=== PATIENT | female | born 1955 | race Caucasian/White ===

== ENCOUNTER 2016-10-16 11:32 | Inpatient (IN) | payer OTHER ==
[2016-10-16] MEDS ORDERED: Sodium Chloride 0.9% 1000 ML 1,000 ML IV STA (11:58)
[2016-10-16] MEDS ORDERED: Zofran 4 MG/2 ML VIAL IV ONE (11:58)
[2016-10-16] MEDS ORDERED: Hydromorphone 1 mg/ml Ampule IV ONE ×2 (12:00→14:01)
[2016-10-16] MEDS ORDERED: Hydromorphone 1 mg/ml Ampule ONE ×2 (12:04→14:05)
[2016-10-16] MEDS ORDERED: Zofran 4 MG/2 ML VIAL ONE (12:04)
[2016-10-16] MEDS ORDERED: Sodium Chloride 0.9% 1000 ML 1,000 ML ONE ×2 (12:04→13:55)
--- NOTE | 2016-10-16 12:07 | ERPHSYRPT ---
- History of Present Illness Time Seen by Provider: 10/16/16 11:50 Historian: patient Exam Limitations: clinical condition Patient Subjective Stated Complaint: rt flank pain Triage Nursing Assessment: rt flank pain for 2 days. nonradiating. denies pain with urination. no fever. normal bowel pattern. vomited x2 this am. bs present. constant dull ache to rt flank Physician History: PATIENT COMPLAINS OF ACUTE ONSET OF SEVERE RIGHT FLANK X 4 DAYS ASSOCIATED WITH NAUSEA AND EMESIS X 2 EPISODES TODAY. DENIES FEVER, URINARY SYMPTOMS, FREQUENCY , URGENCY, DYSURIA OR HEMATURIA Timing/Duration: day(s) Activities at Onset: none Quality: sharpness Abdominal Pain Onset Location: flank Pain Radiation: no radiation Severity of Pain-Max: severe Severity of Pain-Current: severe Modifying Factors: Improves With: movement Associated Symptoms: nausea, vomiting Previous symptoms: no prior history Allergies/Adverse Reactions: No Known Drug Allergies Allergy (Unverified 10/16/16 11:44) Home Medications: Cranberry Conc/Ascorbic Acid [Cranberry Urinary Comf [facility]] 1 tablet PO DAILY [History] Escitalopram Oxalate [Lexapro] 1 tablet PO DAILY 07/06/14 [History] Simvastatin 40 mg [Zocor 40 mg] 1 tablet PO DAILY 07/06/14 [History] Biotin 10,000 mcg PO DAILY 10/16/16 [History] Hx Tetanus, Diphtheria Vaccination/Date Given: Yes Hx Influenza Vaccination/Date Given: No Hx Pneumococcal Vaccination/Date Given: No Immunizations Up to Date: Yes - Review of Systems Constitutional: No Fever, No Chills Eyes: No Symptoms Ears, Nose, & Throat: No Symptoms Respiratory: No Symptoms, No Cough, No Dyspnea Cardiac: No Symptoms, No Chest Pain, No Edema, No Syncope Abdominal/Gastrointestinal: Nausea, Vomiting, Hematochezia, No Abdominal Pain, No Diarrhea Genitourinary Symptoms: Flank Pain, No Dysuria Musculoskeletal: No Back Pain, No Neck Pain Skin: No Symptoms, No Rash Neurological: No Dizziness, No Focal Weakness, No Sensory Changes Psychological: No Symptoms Endocrine: No Symptoms All Other Systems: Reviewed and Negative - Past Medical History Neurological History: No Pertinent History ENT History: No Pertinent History Cardiac History: No Pertinent History Respiratory History: No Pertinent History Endocrine Medical History: No Pertinent History Musculoskeletal History: No Pertinent History GI Medical History: No Pertinent History History: Other Psycho-Social History: Depression, Eating Disorders Female Reproductive Disorders: No Pertinent History Other Medical History: bladder infections - Past Surgical History Past Surgical History: Yes Neuro Surgical History: No Pertinent History Cardiac: No Pertinent History Respiratory: No Pertinent History Gastrointestinal: Appendectomy Genitourinary: No Pertinent History Musculoskeletal: No Pertinent History Female Surgical History: No Pertinent History Other Surgical History: right breast biopsy - Social History Smoking Status: Current every day smoker How long have you smoked: 40 Exposure to second hand smoke: No Drug Use: none Patient Lives Alone: No - Nursing Vital Signs Nursing Vital Signs: Initial Vital Signs Temperature 97.8 F Temperature Source Oral Pulse Rate 65 Respiratory Rate 18 Blood Pressure [Right Arm] 108/65 Pain Intensity 3 - Physical Exam General Appearance: no apparent distress, alert Eye Exam: PERRL/EOMI, eyes nml inspection Ears, Nose, Throat Exam: normal ENT inspection, pharynx normal, moist mucous membranes Neck Exam: normal inspection, non-tender, supple, full range of motion Respiratory Exam: normal breath sounds, lungs clear, No respiratory distress Cardiovascular Exam: regular rate/rhythm, normal heart sounds Gastrointestinal/Abdomen Exam: soft, normal bowel sounds, tenderness (RIGHT LATERAL TENDERNESS), No mass Back Exam: normal inspection, normal range of motion, CVA tenderness (MARKED RIGHT CVA TENDERNESS), No vertebral tenderness Extremity Exam: normal inspection, normal range of motion, pelvis stable Neurologic Exam: alert, oriented x 3, cooperative, normal mood/affect, nml cerebellar function, sensation nml, No motor deficits Skin Exam: normal color, warm, dry SpO2 Interpretation: normal SpO2: 98 Oxygen Delivery: Room Air - CT Exams Abdomen/Pelvis CT Interpretation: Discussed w/radiologist (NONOBSTRUCTING SCOTT-CALCULI IN EACH KIDNEY), Other (THERE IS A 1.7CM RIGHT OVARY CYST) Ordered Tests: Active Orders 24 hr Category Date Time Status Clean Catch Urine Specimen STAT Care 10/16/16 11:58 Active IV Insertion STAT Care 10/16/16 11:58 Active ABDOMEN AND PELVIS W/0 CONTRAS [CT] Stat Exams 10/16/16 11:59 Completed BLOOD CULTURE Stat Lab 10/16/16 12:45 Received BMP Stat Lab 10/16/16 12:00 Completed CBC W DIFF Stat Lab 10/16/16 12:00 Completed CULTURE,URINE Stat Lab 10/16/16 12:00 Received UA W/ MICROSCOPIC Stat Lab 10/16/16 12:00 Completed Medication Summary Generic Name Dose Route Start Last Admin Trade Name Eduar PRN Reason Stop Dose Admin Piperacillin Sod/Tazobactam 100 mls @ 100 mls/hr 10/16/16 12:26 10/16/16 12: 31 Sod 4.5 gm/ Dextrose IV 10/16/16 13:25 100 mls/hr STAT ONE Administration Discontinued Medications Generic Name Dose Route Start Last Admin Trade Name Eduar PRN Reason Stop Dose Admin Hydromorphone HCl 1 mg 10/16/16 12:00 10/16/16 12:04 Hydromorphone 1 Mg/Ml Ampule IV 10/16/16 12:01 1 mg STAT ONE Administration Hydromorphone HCl Confirm 10/16/16 12:04 Hydromorphone 1 Mg/Ml Ampule Administered 10/16/16 12:05 Dose 1 mg .ROUTE .STK-MED ONE Sodium Chloride 1,000 mls @ 999 mls/hr 10/16/16 11:58 10/16/16 12:05 Sodium Chloride 0.9% 1000 Ml IV 10/16/16 12:58 999 mls/hr .Q1H1M STA Administration Sodium Chloride Confirm 10/16/16 12:04 Sodium Chloride 0.9% 1000 Ml Administered 10/16/16 12:05 Dose 1,000 mls @ ud .ROUTE .STK-MED ONE Dextrose Confirm 10/16/16 12:30 D5w 100ml Mini Bag 100 Ml Administered 10/16/16 12:31 Dose 100 mls @ ud IV .STK-MED ONE Ondansetron HCl 4 mg 10/16/16 11:58 10/16/16 12:04 Zofran 4 Mg/2 Ml Vial IV 10/16/16 11:59 4 mg STAT ONE Administration Ondansetron HCl Confirm 10/16/16 12:04 Zofran 4 Mg/2 Ml Vial Administered 10/16/16 12:05 Dose 4 mg .ROUTE .STK-MED ONE Piperacillin Sod/Tazobactam Sod Confirm 10/16/16 12:30 Zosyn Inj Administered 10/16/16 12:31 Dose 4.5 gm IV .STK-MED ONE Lab/Rad Data: Laboratory Result Diagrams 10/16/16 12:00 03/01/17 12:00 Laboratory Results 10/16/16 10/16/16 10/16/16 Range/Units 12:00 12:00 12:00 WBC 5.6 (4.0-10.5) K/mm3 RBC 3.68 L (4.1-5.4) M/mm3 Hgb 11.9 L (12.0-16.0) gm/dl Hct 36.4 (35-47) % MCV 98.9 (78-100) fl MCH 32.3 H (26-32) pg MCHC 32.7 (32-36) g/dl RDW 13.6 (11.5-14.0) % Plt Count 183 (150-450) K/mm3 MPV 11.0 H (6-9.5) fl Gran % 68.6 H (36.0-66.0) % Lymphocytes % 25.1 (24.0-44.0) % Monocytes % 5.7 (0.0-12.0) % Eosinophils % 0.4 (0.00-5.0) % Basophils % 0.2 (0.0-0.4) % Basophils # 0.01 (0-0.4) Sodium 142 (136-145) mEq/L Potassium 3.6 (3.5-5.1) mEq/L Chloride 108 H (98-107) mEq/L Carbon Dioxide 20.8 L (21-32) mEq/L Anion Gap 16.8 H (5-15) MEQ/L BUN 16 (9-20) mg/dL Creatinine 0.90 (0.55-1.30) mg/dl Estimated GFR > 60 ML/MIN Glucose 106 (70-110) MG/DL Calcium 9.2 (8.5-10.1) mg/dL Ur Collection Type VOID Urine Color YELLOW (YELLOW) Urine Appearance SLIGHTLY CLOUDY (CLEAR) Urine pH 5.5 (5-6) Ur Specific [place] >=1.030 (1.005-1.025) Urine Protein 30 (Negative) Urine Glucose (UA) NEGATIVE (NEGATIVE) mg/dL Urine Ketones NEGATIVE (NEGATIVE) Urine Nitrite NEGATIVE (NEGATIVE) Urine Bilirubin NEGATIVE (NEGATIVE) Urine Urobilinogen 0.2 (0-1) mg/dL Urine WBC (Auto) MODERATE (NEGATIVE) Urine RBC (Auto) TRACE HEMOLYZED (0-5) Denis/ul Urine Microscopic RBC 0-2 (0-2) /HPF Urine Microscopic WBC >100 (0-5) /HPF Ur Epithelial Cells MANY (FEW) /HPF Urine Bacteria MODERATE (NEGATIVE) /HPF Specimen Received 10/16/16 1210 - Progress Progress: improved Progress Note: 10/16/16 12:08 PATIENT GIVEN BOLUS IV NORMAL SALINE 1 LITER OVER 1 HOUR, ZOFRAN 4MG, DILAUDID 1MG IV Discussed with Dr.: Reeder (DISCUSSED WITH DR REEDER AT 1305 FOR OBSERVATION) - Departure Time of Disposition: 13:20 Departure Disposition: Observation Clinical Impression: RIGHT PYELONEPHRITIS, INTRACTABLE PAIN, NONOBSTRUCTIVE MICRO RENAL CALCULI Condition: Stable Critical Care Time: No
[2016-10-16 12:14] LABS: BASOPHIL % 0.2 % (0.0-0.4); Eosinophil % 0.4 % (0.00-5.0); Granulocytes % 68.6 % (36.0-66.0); Lymphocytes % 25.1 % (24.0-44.0); Mean Cell Volume 98.9 fl (78-100); Mean Corpuscular Hemoglobin 32.3 pg (26-32); Monocytes % 5.7 % (0.0-12.0); Platelet Count 183 K/mm3 (150-450); Red Blood Count 3.68 M/mm3 (4.1-5.4); Red Cell Distribution Width 13.6 % (11.5-14.0); White Blood Count 5.6 K/mm3 (4.0-10.5)
[2016-10-16 12:22] LABS: Bacteria MODERATE /HPF (NEGATIVE); COMPLETE URINE MICROSCOPIC? YES; Collection Type VOID; Epithelial Cells MANY /HPF (FEW); Ph 5.5 (5-6); WBC >100 /HPF (0-5)
[2016-10-16] MEDS ORDERED: Zosyn INJ 4.5 GM in D5w 100ML Mini Bag 100 ML 100 ML IV ONE (12:26)
[2016-10-16] MEDS ORDERED: Zosyn INJ IV ONE (12:30)
[2016-10-16] MEDS ORDERED: D5w 100ML Mini Bag 100 ML 100 ML IV ONE (12:30)
[2016-10-16 12:33] LABS: ANION GAP 16.8 MEQ/L (5-15); BLOOD UREA NITROGEN 16 mg/dL (9-20); CHLORIDE 108 mEq/L (98-107); Carbon Dioxide 20.8 mEq/L (21-32); Glucose 106 MG/DL (70-110); Potassium 3.6 mEq/L (3.5-5.1); SODIUM 142 mEq/L (136-145)
--- NOTE | 2016-10-16 12:45 | XRAY ---
Indication: Right flank pain. Multiple contiguous axial images obtained through the abdomen and pelvis without contrast using renal stone protocol. Comparison: None Lung bases demonstrates mild pulmonary emphysema and minimal bibasilar dependent atelectasis. Heart is not enlarged. A few tiny nonobstructing calculi in each kidney, largest in the left lower renal calyx measuring 3 mm. No hydronephrosis, hydroureter, or perinephric fluid. Noncontrasted stomach and bowel loops appear nonobstructed. Mild fluid distended colon throughout especially sigmoid/rectum favoring diarrhea. Previous reported appendectomy. 1.7 cm right ovary cyst. No free fluid/air. Remaining liver, gallbladder, pancreas, spleen, adrenal glands, kidneys, ureters, bladder, and uterus appear unremarkable for noncontrast exam. Mild aortoiliac calcifications without AAA. Osseous structures intact. Impression: 1. Nonobstructing micro-calculi in each kidney. 2. 1.7 cm right ovary cyst. 3. Fluid distended colon throughout favoring diarrhea. CT DI 14.09
[2016-10-16] MEDS: Sodium Chloride 0.9% 1000 ML 1,000 ML IV SCH ×2 (13:50→23:27)
[2016-10-16] MEDS ORDERED: TYLENOL 325 MG PO STA (14:01)
[2016-10-16] MEDS ORDERED: TYLENOL 325 MG ONE (14:05)
--- NOTE | 2016-10-16 16:52 | PCM.HP ---
History of Present Illness - Chief Complaint Chief Complaint: pylonephritis History of Present Illness: is a 60 year old female who presented to the ER today with a history of increasingly severe right flank pain for the last 2 days. She has had no known fever, has no dysuria, frequency or hesitancy. She reports a longstanding history of UTI symptoms and has seen urology in the past. She denies change in bowel patterns, has vomited x 2 this am which she attributed to severe flank pain. - Review of Systems Constitutional: No Fever, No Chills Respiratory: No Cough, No Short Of Breath Cardiac: No Chest Pain, No Edema, No Syncope Abdominal/Gastrointestinal: Nausea, Vomiting, No Abdominal Pain, No Diarrhea, No Constipation, No Hematemesis, No Hematochezia, No Melena Genitourinary Symptoms: Flank Pain, No Dysuria, No Frequency, No Hematuria, No Incontinence Skin: No Rash All Other Systems: Reviewed and Negative Medications & Allergies Home Medications: Home Medication List Cranberry Conc/Ascorbic Acid [Cranberry Urinary Comf [facility]] 1 tablet PO DAILY [History Confirmed 10/16/16] Escitalopram Oxalate [Lexapro] 1 tablet PO DAILY 07/06/14 [History Confirmed 09/03] Simvastatin 40 mg [Zocor 40 mg] 1 tablet PO DAILY 07/06/14 [History Confirmed ] Biotin 10,000 mcg PO DAILY 10/16/16 [History Confirmed 10/16/16] Allergies/Adverse Reactions: Allergies Allergy/AdvReac Type Severity Reaction Status Date / Time sulfamethoxazole AdvReac Severe Nausea and Verified 10/16/16 14:58 [From Bactrim] Vomiting trimethoprim [From Bactrim] AdvReac Severe Nausea and Verified 10/16/16 14:58 Vomiting - Past Medical History Neurological History: No Pertinent History ENT History: No Pertinent History Cardiac History: No Pertinent History Respiratory History: No Pertinent History Endocrine Medical History: No Pertinent History Musculoskelatal History: No Pertinent History GI Medical History: No Pertinent History History: Other Pyscho-Social History: Depression, Eating Disorders Reproductive Disorders: No Pertinent History Comment: bladder infections - Female History Hx Last Menstrual Period: 10 years ago Are you now?: No - Past Surgical History Past Surgical History: Yes Neuro Surgical History: No Pertinent History Cardiac History: No Pertinent History Respiratory Surgery: No Pertinent History GI Surgical History: Appendectomy Genitourinary Surgical Hx: No Pertinent History Musculskeletal Surgical Hx: No Pertinent History Female Surgical History: No Pertinent History Other Surgical History: right breast biopsy - Social History Smoking Status: Current every day smoker How long have you smoked: 42 Exposure to second hand smoke: No Alcohol: None Drug Use: none - Physical Exam Vital Signs: Vital Signs - 24 hr Temp Pulse Resp BP Pulse Ox 10/16/16 15:14 95 10/16/16 14:43 62 18 99/58 10/16/16 14:17 97.9 F 62 16 87/64 10/16/16 13:13 98 10/16/16 12:25 65 18 108/65 96 10/16/16 11:40 97.8 F 130 H 18 130/89 98 General Appearance: no apparent distress, alert Respiratory Exam: normal breath sounds, lungs clear, No respiratory distress Cardiovascular Exam: regular rate/rhythm, normal heart sounds, normal peripheral pulses Gastrointestinal/Abdomen Exam: soft, normal bowel sounds, No tenderness, No mass Back Exam: CVA tenderness (right) Extremity Exam: normal inspection, normal range of motion, pelvis stable Skin Exam: normal color, warm, dry, No rash Assessment/Plan (1) Acute pyelonephritis Current Visit: Yes Status: Acute Assessment & Plan: continue zosyn, await urine and blood culture. IV dilaudid, zofran and fluids ordered. Code(s): N10 - ACUTE PYELONEPHRITIS
[2016-10-16] MEDS ORDERED: MEDICATION INTERVENTION MC SCH (17:00)
[2016-10-16] MEDS: Zosyn 3.375GM/100 Ml D5W 100 ML IV SCH (17:11)
[2016-10-16] MEDS: ZOCOR 20MG PO SCH (22:03)
[2016-10-16] MEDS: Lexapro 10 MG PO SCH (22:03)
[2016-10-16] MEDS: DILAUDID 2 MG INJECTION IV PRN (23:00)
[2016-10-17] MEDS: Zosyn 3.375GM/100 Ml D5W 100 ML IV SCH ×4 (00:45→17:01)
[2016-10-17] MEDS: DILAUDID 2 MG INJECTION IV PRN ×2 (07:44→11:50)
[2016-10-17] MEDS: Sodium Chloride 0.9% 1000 ML 1,000 ML IV SCH ×2 (07:45→20:19)
[2016-10-17] MEDS: Levofloxacin 500MG/100ML D5W 100 ML IV SCH (08:40)
--- NOTE | 2016-10-17 08:51 | HP ---
CHIEF COMPLAINT: Right flank pain. HISTORY OF PRESENT ILLNESS: The patient is a 60 year-old white female who has been complaining of excruciating right sided flank pain for the past two days. The patient reports that she had gotten up after having a bad night to get a drink and actually passed out striking the back of her head and causing pain to her right ankle. The patient denied any dysuria. She has had chronic diarrhea. She has had no fever, chills or sweats. No vomiting. PAST MEDICAL/SURGICAL HISTORY: Significant for hyperlipidemia and depression. The patient denies any significant history of kidney stones or recurrent urinary tract infections/ MEDICATIONS: The patient's medications at home include Lexapro 1 tablet a day, Simvastatin 40 mg a day. She takes biotin. ALLERGIES: SULFA. PHYSICAL EXAMINATION: Revealed a well nourished, well developed 60 year-old white female who appears to be in moderate distress due to her flank pain. The patient's vital signs on admission showed temperature 97.8F oral with a pulse 65, respiratory rate 18, blood pressure 108/65. O2 saturation 98% on room air. HEENT: Normocephalic, atraumatic. Pupils equal round reactive to light. Extraocular movements intact. Oropharynx is dry. NECK: Supple without lymphadenopathy, thyromegaly or JVD. CHEST: Clear to auscultation with good air movement bilaterally. HEART: Regular rate and rhythm without murmurs, rubs or gallops. ABDOMEN: Soft. No palpable masses were felt. There is exquisite tenderness in the right flank area particularly on percussion. EXTREMITIES: Without clubbing, cyanosis or edema. NEUROLOGIC: The patient is alert and oriented x3 with no focal deficits noted. LAB DATA AND TESTS: Showed hemoglobin A1C 5.5, white blood cell count 5,600, hemoglobin 11.9, PLT count 183,000. UA showed specific gravity greater than 1.030. She had greater than 100 white blood cells per high power field, 0 to 2 red blood cells per high power field. Her metabolic panel showed sugar 106, BUN 16, creatinine 0.9. Her electrolytes were normal. She had CT scan showing nonobstructive microcalculi in each kidney and 1.7 cm right ovarian cyst with fluid distended colon. ASSESSMENT: 1) A patient with right flank pain and elevation of white blood cell count in urine favoring pyelonephritis. The patient does also have stones. There is a possibility that she has tried to pass a stone in the ureter but she has no history of previously passing this. 2) A patient with right ankle pain. Will check an x-ray to rule out underlying fracture although there is no swelling or bruising at the site. The patient will be maintained on IV fluids and she is on Dilaudid for pain control. She has been placed on piperacillin. We will add Levaquin as the patient has not improved overnight on the piperacillin alone. We will await the culture reports to help direct treatment otherwise.
--- NOTE | 2016-10-17 08:55 | XRAY ---
Indication: Pain following fall. Comparison: None 3 nonweightbearing views of the right foot demonstrates second toe ornamental ring which the patient could not remove. No other bony, articular, or soft tissue abnormalities.
[2016-10-17] MEDS: ENOXAPARIN SODIUM SQ SCH (09:57)
[2016-10-17] MEDS ORDERED: ESCITALOPRAM OXALATE PO SCH (10:00)
[2016-10-17] MEDS ORDERED: SIMVASTATIN 40 MG PO SCH (10:00)
[2016-10-17] MEDS: DILAUDID 1 MG/1ML PCA IV PRN ×2 (14:50→17:08)
[2016-10-17] MEDS ORDERED: DILAUDID 2 MG INJECTION IV PRN (16:36)
[2016-10-17] MEDS: Zofran 4 MG/2 ML VIAL IV PRN (17:39)
[2016-10-17] MEDS: ZOCOR 20MG PO SCH (23:15)
[2016-10-17] MEDS: Lexapro 10 MG PO SCH (23:15)
[2016-10-18] MEDS: Zofran 4 MG/2 ML VIAL IV PRN (00:45)
[2016-10-18] MEDS: Zosyn 3.375GM/100 Ml D5W 100 ML IV SCH ×5 (00:45→23:08)
[2016-10-18] MEDS ORDERED: TORAdol 30 mg Injection IV PRN (04:11)
[2016-10-18] MEDS: Phenergan 25 MG INJ IV PRN ×2 (04:16→17:52)
[2016-10-18 05:30] LABS: Lymphocytes % 16.4 % (24.0-44.0); Mean Cell Volume 100.3 fl (78-100); Mean Corpuscular Hemoglobin 31.8 pg (26-32); Mean Platelet Volume 10.5 fl (6-9.5); Monocytes % 3.6 % (0.0-12.0); Platelet Count 131 K/mm3 (150-450); Red Blood Count 3.05 M/mm3 (4.1-5.4); Red Cell Distribution Width 13.7 % (11.5-14.0)
[2016-10-18 05:51] LABS: ALBUMIN 2.9 g/dL (3.4-5.0); ALKALINE PHOSPHATASE 66 U/L (46-116); ANION GAP 15.1 MEQ/L (5-15); BILIRUBIN,TOTAL 0.2 mg/dL (0.2-1.0); BLOOD UREA NITROGEN 10 mg/dL (9-20); CHLORIDE 110 mEq/L (98-107); Carbon Dioxide 21.8 mEq/L (21-32); Glucose 106 MG/DL (70-110); Potassium 3.8 mEq/L (3.5-5.1); SGOT/AST 18 U/L (15-37); SGPT/ALT 9 U/L (12-78); SODIUM 143 mEq/L (136-145); Total Protein 6.8 gm/dL (6.4-8.2)
[2016-10-18] MEDS ORDERED: MORPHINE SULFATE 4 MG INJ IV PRN (08:24)
[2016-10-18] MEDS: Sodium Chloride 0.9% 1000 ML 1,000 ML IV SCH ×2 (08:48→23:08)
[2016-10-18] MEDS: Levofloxacin 500MG/100ML D5W 100 ML IV SCH (08:48)
[2016-10-18] MEDS: ENOXAPARIN SODIUM SQ SCH (08:48)
[2016-10-18] MEDS: Lexapro 10 MG PO SCH (22:14)
[2016-10-18] MEDS: ZOCOR 20MG PO SCH (22:14)
[2016-10-18] MEDS: TYLENOL 325 MG PO PRN (22:20)
[2016-10-18] MEDS: MOTRIN 600 MG PO PRN (23:46)
[2016-10-19] MEDS: Zosyn 3.375GM/100 Ml D5W 100 ML IV SCH ×2 (05:59→13:47)
[2016-10-19 06:01] LABS: Eosinophil % 0.2 % (0.00-5.0); Granulocytes % 56.1 % (36.0-66.0); Lymphocytes % 35.8 % (24.0-44.0); Mean Platelet Volume 10.8 fl (6-9.5); Monocytes % 7.9 % (0.0-12.0); Platelet Count 126 K/mm3 (150-450); Red Blood Count 2.94 M/mm3 (4.1-5.4); Red Cell Distribution Width 13.7 % (11.5-14.0); White Blood Count 4.2 K/mm3 (4.0-10.5)
[2016-10-19 06:13] LABS: Mean Corpuscular Hemoglobin 31.9 pg (26-32)
[2016-10-19 06:48] LABS: ALBUMIN 2.5 g/dL (3.4-5.0); ANION GAP 14.6 MEQ/L (5-15); BILIRUBIN,TOTAL 0.4 mg/dL (0.2-1.0); Carbon Dioxide 20.7 mEq/L (21-32); Total Protein 6.4 gm/dL (6.4-8.2)
[2016-10-19 07:01] LABS: Potassium 2.9 mEq/L (3.5-5.1)
[2016-10-19] MEDS: POTASSIUM CHLORIDE 20 mEq IN WATER 100ML 100 ML IV SCH ×4 (08:09→20:36)
[2016-10-19] MEDS: Sodium Chloride 0.9% 1000 ML 1,000 ML IV SCH (08:51)
[2016-10-19] MEDS: ENOXAPARIN SODIUM SQ SCH (10:23)
[2016-10-19] MEDS: Levofloxacin 500MG/100ML D5W 100 ML IV SCH (12:34)
[2016-10-19] MEDS: Zofran 4 MG/2 ML VIAL IV PRN (13:56)
[2016-10-19 15:04] LABS: MAGNESIUM 1.4 mg/dL (1.8-2.4); Potassium 3.1 mEq/L (3.5-5.1)
--- NOTE | 2016-10-19 15:17 | PCM.NOTE ---
Date and Time: 10/19/161513 Subjective Assessment: She is feeling nauseated when getting her abx. Tmax last night to 100.2. Not tolearting po well. - Review of Systems Abdominal/Gastrointestinal: Nausea, Vomiting, No Abdominal Pain Objective Exam General Appearance: no apparent distress Neurologic Exam: alert, oriented x 3, cooperative Skin Exam: normal color, warm, dry Respiratory Exam: normal breath sounds, lungs clear Cardiovascular Exam: regular rate/rhythm, normal heart sounds, No murmur Extremity Exam: No pedal edema, No swelling OBJECTIVE DATA Vital Signs: Vital Signs - 24 hr Temp Pulse Resp BP Pulse Ox 10/19/16 11:48 98 F 60 18 160/90 10/19/16 07:42 98.3 F 67 17 129/86 10/19/16 04:31 147/75 10/19/16 04:00 98.9 F 68 20 175/85 94 L 10/18/16 23:47 100.1 F 69 17 132/77 95 10/18/16 23:46 100.2 F 10/18/16 22:20 99.2 F 10/18/16 19:56 98.5 F 82 18 129/74 95 10/18/16 16:00 98.7 F 75 18 126/84 Pain Assessment - Last Documented Pain Intensity 0 Pain Scale Used 0-10 Pain Scale Intake and Output: Intake & Output 10/17/16 10/18/16 10/19/16 10/20/16 11:59 11:59 11:59 11:59 Intake Total 3469 3925 3176 360 Output Total 400 200 Balance 3069 3925 2976 360 Weight 54.431 kg Lab Results: Lab Results-Last 24 Hours 10/18/16 10/19/16 10/19/16 Range/Units 23:35 05:40 05:40 WBC 4.2 (4.0-10.5) K/mm3 RBC 2.94 L (4.1-5.4) M/mm3 Hgb 9.4 L (12.0-16.0) gm/dl Hct 29.1 L (35-47) % MCV 99.0 (78-100) fl MCH 31.9 (26-32) pg MCHC 32.3 (32-36) g/dl RDW 13.7 (11.5-14.0) % Plt Count 126 L (150-450) K/mm3 MPV 10.8 H (6-9.5) fl Gran % 56.1 (36.0-66.0) % Lymphocytes % 35.8 (24.0-44.0) % Monocytes % 7.9 (0.0-12.0) % Eosinophils % 0.2 (0.00-5.0) % Basophils % 0.0 (0.0-0.4) % Basophils # 0 (0-0.4) Sodium 145 (136-145) mEq/L Potassium 2.9 L* (3.5-5.1) mEq/L Chloride 113 H (98-107) mEq/L Carbon Dioxide 20.7 L (21-32) mEq/L Anion Gap 14.6 (5-15) MEQ/L BUN 12 (9-20) mg/dL Creatinine 1.08 (0.55-1.30) mg/dl Estimated GFR 55 ML/MIN Glucose 97 (70-110) MG/DL Calcium 8.3 L (8.5-10.1) mg/dL Magnesium (1.8-2.4) mg/dL Total Bilirubin 0.4 (0.2-1.0) mg/dL AST 23 (15-37) U/L ALT 13 (12-78) U/L Alkaline Phosphatase 58 (46-116) U/L Serum Total Protein 6.4 (6.4-8.2) gm/dL Albumin 2.5 L (3.4-5.0) g/dL Influenza Type A Ag NEGATIVE (NEGATIVE) Influenza Type B Ag NEGATIVE (NEGATIVE) RSV (PCR) NEGATIVE (Negative) 10/19/16 Range/Units 14:30 WBC (4.0-10.5) K/mm3 RBC (4.1-5.4) M/mm3 Hgb (12.0-16.0) gm/dl Hct (35-47) % MCV (78-100) fl MCH (26-32) pg MCHC (32-36) g/dl RDW (11.5-14.0) % Plt Count (150-450) K/mm3 MPV (6-9.5) fl Gran % (36.0-66.0) % Lymphocytes % (24.0-44.0) % Monocytes % (0.0-12.0) % Eosinophils % (0.00-5.0) % Basophils % (0.0-0.4) % Basophils # (0-0.4) Sodium (136-145) mEq/L Potassium 3.1 L (3.5-5.1) mEq/L Chloride (98-107) mEq/L Carbon Dioxide (21-32) mEq/L Anion Gap (5-15) MEQ/L BUN (9-20) mg/dL Creatinine (0.55-1.30) mg/dl Estimated GFR ML/MIN Glucose (70-110) MG/DL Calcium (8.5-10.1) mg/dL Magnesium 1.4 L (1.8-2.4) mg/dL Total Bilirubin (0.2-1.0) mg/dL AST (15-37) U/L ALT (12-78) U/L Alkaline Phosphatase (46-116) U/L Serum Total Protein (6.4-8.2) gm/dL Albumin (3.4-5.0) g/dL Influenza Type A Ag (NEGATIVE) Influenza Type B Ag (NEGATIVE) RSV (PCR) (Negative) Assessment/Plan (1) Acute pyelonephritis Current Visit: Yes Status: Acute Assessment & Plan: UCx + Strep sp, change abx from zosyn and levaquin to rocephin. If afebrile and daniel po can d/c home tomorrow. Code(s): N10 - ACUTE PYELONEPHRITIS (2) Nausea Current Visit: Yes Status: Acute Assessment & Plan: change in abx may decrease the nausea. Code(s): R11.0 - NAUSEA (3) Wheeze Current Visit: Yes Status: Acute Assessment & Plan: try albuterol nebs. notes she is susceptible to respiratory illness. Code(s): R06.2 - WHEEZING
[2016-10-19] MEDS ORDERED: Magnesium Sulfate 1 GM/2 ML VIAL IV ONE (15:18)
[2016-10-19] MEDS ORDERED: PROVENTIL 2.5 MG/3 ML NEB IH PRN (15:18)
[2016-10-19] MEDS: Magnesium 1 Gm / 100 Ml D5W*** 100 ML IV SCH ×2 (15:40→17:15)
[2016-10-19] MEDS: ROCEPHIN 1 Gm-D5w 50 ml Bag** 50 ML IV SCH (17:15)
[2016-10-19 20:04] LABS: A-aADO2 73; ARTERIAL BLD GAS O2 SATURATION 86.9 % (95-100); ARTERIAL BLOOD GAS BASE EXCESS -3.2 (-2.0-2.0); ARTERIAL BLOOD GAS FIO2 21 %; ARTERIAL BLOOD GAS pH 7.48 (7.35-7.45)
[2016-10-19 20:05] LABS: ARTERIAL BLOOD GAS PO2 44 mmHg (75-100)
[2016-10-19] MEDS: MOTRIN 600 MG PO PRN (21:11)
[2016-10-19] MEDS: Lexapro 10 MG PO SCH (21:12)
[2016-10-19] MEDS: ZOCOR 20MG PO SCH (21:12)
[2016-10-20] MEDS ORDERED: Lasix 20 MG/2 ML IV ONE
[2016-10-20] MEDS: Sodium Chloride 0.9% 1000 ML 1,000 ML IV SCH (00:01)
[2016-10-20] MEDS ORDERED: SODIUM CHLORIDE 0.45% W/ 20 mEq KCL 1,000 ML IV SCH (01:00)
[2016-10-20] MEDS ORDERED: Sodium Chloride 0.9% W/ 20 mEq KCl/LITER 1,000 ML IV ONE (01:20)
[2016-10-20] MEDS: Sodium Chloride 0.9% W/ 20 mEq KCl/LITER 1,000 ML IV SCH ×2 (01:26→14:02)
[2016-10-20 05:51] LABS: BASOPHIL % 0.2 % (0.0-0.4); Eosinophil % 2.2 % (0.00-5.0); Granulocytes % 57.4 % (36.0-66.0); Lymphocytes % 33.3 % (24.0-44.0); Mean Cell Volume 98.3 fl (78-100); Mean Corpuscular Hemoglobin 31.9 pg (26-32); Mean Platelet Volume 10.8 fl (6-9.5); Monocytes % 6.9 % (0.0-12.0); Platelet Count 147 K/mm3 (150-450); Red Blood Count 2.88 M/mm3 (4.1-5.4); Red Cell Distribution Width 13.7 % (11.5-14.0); White Blood Count 4.6 K/mm3 (4.0-10.5)
[2016-10-20 06:02] LABS: ANION GAP 13.7 MEQ/L (5-15); BLOOD UREA NITROGEN 9 mg/dL (9-20); CHLORIDE 112 mEq/L (98-107); Carbon Dioxide 22.9 mEq/L (21-32); Glucose 94 MG/DL (70-110); MAGNESIUM 1.8 mg/dL (1.8-2.4); Potassium 3.2 mEq/L (3.5-5.1); SODIUM 145 mEq/L (136-145)
--- NOTE | 2016-10-20 08:51 | XRAY ---
Indication: Short of breath. Pyelonephritis. Comparison: None Portable chest demonstrates pulmonary edema and small bibasilar effusions, left greater than right. Heart is not enlarged. Vascularity normal. Bony thorax intact. Impression: Pulmonary edema and bibasilar effusions without cardiomegaly. Rule out noncardiogenic causes.
--- NOTE | 2016-10-20 08:55 | XRAY ---
Indication: Short of breath, elevated d-dimer, tachycardia, and syncope. Pyelonephritis. Multiple contiguous images obtained through the chest using 80 cc Isovue 370 contrast and PE protocol. Comparison: None There is good opacification of the pulmonary arteries including the lobar and segmental branches. No filling defect or pulmonary embolus. Heart is not enlarged. Aorta is normal in course and caliber. No pathologic mediastinal/hilar lymphadenopathy. Examination of the lung parenchyma demonstrates moderate pleural effusion, left greater than right. Bilateral dependent atelectasis greater near the lung bases. Remaining lungs demonstrates fibrosis/scarring in both upper lobes and mild emphysema. Bony thorax intact. Limited upper abdomen unremarkable. Impression: 1. Negative for pulmonary embolus. 2. Moderate bilateral pleural effusions and bilateral dependent atelectasis without cardiomegaly. 3. Pulmonary emphysema. Comment: Preliminary interpretation was made by [facility]. No discrepancy. CTDI 10.00
[2016-10-20] MEDS: ENOXAPARIN SODIUM SQ SCH (08:56)
--- NOTE | 2016-10-20 13:27 | PCM.NOTE ---
Date and Time: 10/20/16 1305 Subjective Assessment: Overnight pt became went to [facility] bathroom and was panting, very tachypneic, when she returned. She had some chest pain. Was tacypneic into the 180s. Had gotten breathing tx earlier in the day for wheezing with no relief. ABG done and CT chest done - neg for PE but some pleural effusions. Today she is on 3L NC, daniel po now. Her notes she has been coughing over the past few days and c/o burning in her chest which is typical for her when she gets bronchitis. - Review of Systems Constitutional: No Fever Respiratory: Cough, Short Of Breath, Wheezing Objective Exam General Appearance: no apparent distress, other (3 L NC) Neurologic Exam: alert, oriented x 3, cooperative Skin Exam: normal color, warm, dry Respiratory Exam: lungs clear, crackles/rales (faint RLL), No rhonchi, No wheezing Cardiovascular Exam: regular rate/rhythm, normal heart sounds, murmur Extremity Exam: No pedal edema, No swelling OBJECTIVE DATA Vital Signs: Vital Signs - 24 hr Temp Pulse Resp BP Pulse Ox 10/20/16 11:29 98.5 F 77 20 121/75 96 10/20/16 08:42 74 18 95 10/20/16 08:00 97.5 F 71 18 139/71 90 L 10/20/16 04:00 98.5 F 76 18 114/68 92 L 10/20/16 00:00 98.1 F 64 21 135/81 93 L 10/19/16 20:15 94 L 10/19/16 20:00 98.1 F 70 16 143/82 92 L 10/19/16 19:35 65 28 H 81 L 10/19/16 16:04 56 L 16 10/19/16 16:00 98.2 F 71 18 150/85 Oxygen-Last 24 hours O2 Percentage 3 Liters = 32% O2 Percentage 3 Liters = 32% O2 Percentage 3 Liters = 32% O2 Percentage 3 Liters = 32% O2 Percentage 3 Liters = 32% Pain Assessment - Last Documented Pain Intensity 0 Pain Scale Used 0-10 Pain Scale Intake and Output: Intake & Output 10/18/16 10/19/16 10/20/16 10/21/16 11:59 11:59 11:59 11:59 Intake Total 7944 0984 2698 Output Total 200 Balance 7338 6475 0447 Lab Results: Lab Results-Last 24 Hours 10/19/16 10/19/16 10/19/16 Range/Units 14:30 19:55 20:45 WBC (4.0-10.5) K/mm3 RBC (4.1-5.4) M/mm3 Hgb (12.0-16.0) gm/dl Hct (35-47) % MCV (78-100) fl MCH (26-32) pg MCHC (32-36) g/dl RDW (11.5-14.0) % Plt Count (150-450) K/mm3 MPV (6-9.5) fl Gran % (36.0-66.0) % Lymphocytes % (24.0-44.0) % Monocytes % (0.0-12.0) % Eosinophils % (0.00-5.0) % Basophils % (0.0-0.4) % Basophils # (0-0.4) D-Dimer (0.00-0.49) mg/L Puncture Site LEFT BRACHIAL pCO2 26 L (35-45) mmHg pO2 44 L* (75-100) mmHg Base Excess -3.2 L (-2.0-2.0) O2 Saturation 84.5 L (94-100) g/dF ABG pH 7.48 H (7.35-7.45) ABG HCO3 19.4 L (22-28) ABG O2 Sat (Measured) 86.9 L (95-100) % Rush Test NOT APPLICABLE A-a Gradient 73 a/A Ratio 0.38 Hemoglobin 9.3 Carboxyhemoglobin 1.8 (0.0-6.9) % THgb Methemoglobin 1.1 L (1.4-1.5) % Temperature 37.0 C POC O2 Flow Rate 21 % Sodium (136-145) mEq/L Potassium 3.1 L 3.5 (3.5-5.1) mEq/L Chloride (98-107) mEq/L Carbon Dioxide (21-32) mEq/L Anion Gap (5-15) MEQ/L BUN (9-20) mg/dL Creatinine (0.55-1.30) mg/dl Estimated GFR ML/MIN Glucose (70-110) MG/DL Calcium (8.5-10.1) mg/dL Magnesium 1.4 L (1.8-2.4) mg/dL Troponin I < 0.017 (0.000-0.056) ng/ml 10/19/16 10/20/16 10/20/16 Range/Units 20:45 01:20 05:10 WBC 4.6 (4.0-10.5) K/mm3 RBC 2.88 L (4.1-5.4) M/mm3 Hgb 9.2 L (12.0-16.0) gm/dl Hct 28.3 L (35-47) % MCV 98.3 (78-100) fl MCH 31.9 (26-32) pg MCHC 32.5 (32-36) g/dl RDW 13.7 (11.5-14.0) % Plt Count 147 L (150-450) K/mm3 MPV 10.8 H (6-9.5) fl Gran % 57.4 (36.0-66.0) % Lymphocytes % 33.3 (24.0-44.0) % Monocytes % 6.9 (0.0-12.0) % Eosinophils % 2.2 (0.00-5.0) % Basophils % 0.2 (0.0-0.4) % Basophils # 0.01 (0-0.4) D-Dimer 0.595 H* (0.00-0.49) mg/L Puncture Site pCO2 (35-45) mmHg pO2 (75-100) mmHg Base Excess (-2.0-2.0) O2 Saturation (94-100) g/dF ABG pH (7.35-7.45) ABG HCO3 (22-28) ABG O2 Sat (Measured) (95-100) % Rush Test A-a Gradient a/A Ratio Hemoglobin Carboxyhemoglobin (0.0-6.9) % THgb Methemoglobin (1.4-1.5) % Temperature C POC O2 Flow Rate % Sodium (136-145) mEq/L Potassium 3.2 L (3.5-5.1) mEq/L Chloride (98-107) mEq/L Carbon Dioxide (21-32) mEq/L Anion Gap (5-15) MEQ/L BUN (9-20) mg/dL Creatinine (0.55-1.30) mg/dl Estimated GFR ML/MIN Glucose (70-110) MG/DL Calcium (8.5-10.1) mg/dL Magnesium (1.8-2.4) mg/dL Troponin I (0.000-0.056) ng/ml 10/20/16 Range/Units 05:10 WBC (4.0-10.5) K/mm3 RBC (4.1-5.4) M/mm3 Hgb (12.0-16.0) gm/dl Hct (35-47) % MCV (78-100) fl MCH (26-32) pg MCHC (32-36) g/dl RDW (11.5-14.0) % Plt Count (150-450) K/mm3 MPV (6-9.5) fl Gran % (36.0-66.0) % Lymphocytes % (24.0-44.0) % Monocytes % (0.0-12.0) % Eosinophils % (0.00-5.0) % Basophils % (0.0-0.4) % Basophils # (0-0.4) D-Dimer (0.00-0.49) mg/L Puncture Site pCO2 (35-45) mmHg pO2 (75-100) mmHg Base Excess (-2.0-2.0) O2 Saturation (94-100) g/dF ABG pH (7.35-7.45) ABG HCO3 (22-28) ABG O2 Sat (Measured) (95-100) % Rush Test A-a Gradient a/A Ratio Hemoglobin Carboxyhemoglobin (0.0-6.9) % THgb Methemoglobin (1.4-1.5) % Temperature C POC O2 Flow Rate % Sodium 145 (136-145) mEq/L Potassium 3.2 L (3.5-5.1) mEq/L Chloride 112 H (98-107) mEq/L Carbon Dioxide 22.9 (21-32) mEq/L Anion Gap 13.7 (5-15) MEQ/L BUN 9 (9-20) mg/dL Creatinine 0.92 (0.55-1.30) mg/dl Estimated GFR > 60 ML/MIN Glucose 94 (70-110) MG/DL Calcium 8.2 L (8.5-10.1) mg/dL Magnesium 1.8 (1.8-2.4) mg/dL Troponin I (0.000-0.056) ng/ml Radiology Exams: Radiology Procedures Category Date Time Status CHEST 1 VIEW (PORTABLE) Stat Exams 10/19/16 20:22 Completed CHEST WITH CONTRAST [CT] Urgent Exams 10/19/16 21:47 Completed Multi-Disciplinary Progress Notes: Multi-Disciplinary Progress Notes 10/19/16 20:01 Respiratory Note by Minerva Josue I WAS CALLED TO PT'S ROOM DUE TO PT BEING SOB AND HER HEART RATE JUMPING TO 180BPM WITH EXERTION. PT IS HARD TO GET A SPO2 READING ON DUE TO HER GEL NAILS, BUT I OBTAINED A SPO2 READING OF 81% ON HER RIGHT BIG TOE. HER HEART RATE SHOWED 63BPM, AND THAT IS WHAT I PALPATED ON HER WRIST. AT THIS TIME, I THOUGHT IT WAS BEST TO DRAW AN ABG TO CONFIRM PT'S PO2 DUE TO HER SOB AND ELEVATED HEART RATE WITH EXERTION. AFTER DRAWING AND OBTAINING THE ABG VALUES, PT WAS PLACED ON OXYGEN. Addendum entered by Minerva Josue 10/20/16 01:02: DR. WALTER WAS NOTIFIED OF PT'S ABG RESULTS AND OF THE PT'S CONDITION. Initialized on 10/19/16 20:01 - END OF NOTE Assessment/Plan (1) Acute pyelonephritis Current Visit: Yes Status: Acute Assessment & Plan: On IV rocephin. Code(s): N10 - ACUTE PYELONEPHRITIS (2) Bronchitis Current Visit: Yes Status: Acute Assessment & Plan: Will add zithromax to cover for atypical pneumonia. Code(s): J40 - BRONCHITIS, NOT SPECIFIED ACUTE OR CHRONIC (3) Nausea Current Visit: Yes Status: Acute Assessment & Plan: much improved; tolerating po now. Code(s): R11.0 - NAUSEA (4) Dyspnea Current Visit: Yes Status: Acute Assessment & Plan: will consult pulmonology Code(s): R06.00 - DYSPNEA, UNSPECIFIED
[2016-10-20] MEDS: Vibramycin 100 MG PO SCH ×2 (14:02→22:21)
[2016-10-20] MEDS: LASIX 20 MG PO SCH (14:02)
[2016-10-20] MEDS: ROCEPHIN 1 Gm-D5w 50 ml Bag** 50 ML IV SCH (16:18)
[2016-10-20] MEDS: Lexapro 10 MG PO SCH (22:21)
[2016-10-20] MEDS: MOTRIN 600 MG PO PRN (22:21)
[2016-10-20] MEDS: ZOCOR 20MG PO SCH (22:21)
[2016-10-21] MEDS: Sodium Chloride 0.9% W/ 20 mEq KCl/LITER 1,000 ML IV SCH ×2 (02:02→15:08)
[2016-10-21 07:29] LABS: BASOPHIL % 0.2 % (0.0-0.4); Eosinophil % 3.9 % (0.00-5.0); Granulocytes % 62.6 % (36.0-66.0); Lymphocytes % 27.4 % (24.0-44.0); Mean Cell Volume 98.2 fl (78-100); Mean Corpuscular Hemoglobin 32.2 pg (26-32); Mean Platelet Volume 10.6 fl (6-9.5); Monocytes % 5.9 % (0.0-12.0); Platelet Count 162 K/mm3 (150-450); Red Blood Count 3.32 M/mm3 (4.1-5.4); Red Cell Distribution Width 13.7 % (11.5-14.0); White Blood Count 5.1 K/mm3 (4.0-10.5)
[2016-10-21 07:47] LABS: ALBUMIN 2.7 g/dL (3.4-5.0); ALKALINE PHOSPHATASE 63 U/L (46-116); ANION GAP 12.2 MEQ/L (5-15); BILIRUBIN,TOTAL 0.3 mg/dL (0.2-1.0); BLOOD UREA NITROGEN 10 mg/dL (9-20); CHLORIDE 112 mEq/L (98-107); Carbon Dioxide 24.4 mEq/L (21-32); Glucose 82 MG/DL (70-110); Potassium 3.3 mEq/L (3.5-5.1); SGOT/AST 15 U/L (15-37); SGPT/ALT 8 U/L (12-78); SODIUM 145 mEq/L (136-145); Total Protein 6.8 gm/dL (6.4-8.2)
--- NOTE | 2016-10-21 08:37 | XRAY ---
Indication: Cough, low oxygenation, and pleural effusion. Comparison: October 19, 2016. PA/lateral chest demonstrates slightly diminished pulmonary edema with stable bibasilar effusions. Heart is not enlarged. No new cardiopulmonary abnormalities.
[2016-10-21] MEDS: Vibramycin 100 MG PO SCH ×2 (10:14→21:52)
[2016-10-21] MEDS: ENOXAPARIN SODIUM SQ SCH (10:14)
[2016-10-21] MEDS: LASIX 20 MG PO SCH (10:14)
[2016-10-21] MEDS: ROCEPHIN 1 Gm-D5w 50 ml Bag** 50 ML IV SCH (15:08)
[2016-10-21] MEDS: TYLENOL 325 MG PO PRN (16:41)
[2016-10-21] MEDS: Lexapro 10 MG PO SCH (21:51)
[2016-10-21] MEDS: ZOCOR 20MG PO SCH (21:52)
[2016-10-22] MEDS: Sodium Chloride 0.9% W/ 20 mEq KCl/LITER 1,000 ML IV SCH ×2 (04:09→21:27)
[2016-10-22] MEDS: MOTRIN 600 MG PO PRN ×2 (10:53→18:41)
[2016-10-22] MEDS: Vibramycin 100 MG PO SCH ×2 (11:53→21:41)
[2016-10-22] MEDS: ENOXAPARIN SODIUM SQ SCH (11:54)
[2016-10-22] MEDS: ROCEPHIN 1 Gm-D5w 50 ml Bag** 50 ML IV SCH (16:54)
[2016-10-22] MEDS: ZOCOR 20MG PO SCH (21:42)
[2016-10-22] MEDS: Lexapro 10 MG PO SCH (21:42)
--- NOTE | 2016-10-23 07:44 | PCM.DCORD ---
- Discharge Discharge Date: 10/23/16 Condition: Stable Prescriptions: New Amoxicillin/Potassium Clav [Augmentin 875 mg (Amox Tr-K Clv 875-125 mg)] 1 each PO BID #6 tablet Potassium Chloride [Klor-Con 8] 8 meq PO DAILY #30 tablet.er Continue Simvastatin 40 mg [Zocor 40 mg] 1 tablet PO DAILY Escitalopram Oxalate [Lexapro] 1 tablet PO DAILY Cranberry Conc/Ascorbic Acid [Cranberry Urinary Comfort Sfgl] 1 tablet PO DAILY Biotin 10,000 mcg PO DAILY Follow up with: CHAR PIERRE [NON-STAFF PHY W/O PRIVILEGES] - Forms: Patient Portal Information
[2016-10-23 08:16] VITALS: BP 184/88; PULSE 67; O2SAT 99
--- NOTE | 2016-10-23 09:03 | DS ---
DISCHARGE DIAGNOSES: 1) PYELONEPHRITIS. 2) HYPOXIA. 3) HYPOKALEMIA. HISTORY: The patient is a 60 year-old white female who presented to the hospital with complaints of right flank pain. The patient did not have a fever and never had significant elevation of her white blood cell count. However the patient did have some findings in the urine which indicated that it may well be a urinary tract infection with significant white blood cell count in the urine. The CT scan showed small stones in the kidney which were nonobstructing at the time. HOSPITAL COURSE: The patient was admitted to the medicine liu and started on IV antibiotics. She was started on Zosyn and also Vancomycin. The patient's pain was quite severe. She was initially treated with IV intermittent narcotics and then changed over to POLICE GUARD pump and then changed back as the patient felt that the original pain control was better. We also gave her Toradol after which the patient did seem to improve. The patient did have an issue with hypoxia during her stay for unknown reason. The patient's D-dimer was elevated. A CT scan of the chest however did not show any evidence of pulmonary embolism. Request for pulmonary consultation was asked for however the pulmonary physician practice consultant never showed up or help in the patient's evaluation. After 72 hours after the initial request for consultation the patient seemed to improve on her own being able to go back with room air with rest and ambulation. The patient did not require oxygen prior to the time of her return home. The patient's chest x-ray did show some pulmonary edema with bibasilar effusions which did respond to IV Lasix medication, this is likely felt to be fluid overload or possible development of LARS which was mild in nature. The patient again was felt to be ready for discharge home now by the morning of 10/23/2016. The urine culture reports did finally after request to be sent for reference lab did show group B Strep in the urine. The culture report was gram positive cocci also in the blood stream but again this is now after further request that the reference lab as well and sensitivities were never reported out for me by the time the patient was discharged home. We will follow this up. The patient will be seen in my office in two days. She also did have problems with hypokalemia which was corrected both oral and IV. The patient will also be placed on oral potassium at 8 mEq daily on her return home as well as Augmentin 875 twice a day. She will return to use her usual home medications which were just Simvastatin and antidepressant.
== END 2016-10-23 10:00 | disposition home or self-care (01) | DRG 690 ==
LOC: ED 11:32 → MED SURG 14:11 → ED 10-19 11:32 → OBSVTOIN 10-19 19:35
PROVIDERS: ADMIT Family Medicine; ATTEND Family Medicine
DX: N10 Acute pyelonephritis (principal); R09.02 Hypoxemia; E87.6 Hypokalemia; E78.5 Hyperlipidemia, unspecified; F32.9 Major depressive disorder, single episode, unspecified; R06.2 Wheezing; J40 Bronchitis, not specified as acute or chronic; M25.571 Pain in right ankle and joints of right foot; Z79.899 Other long term (current) drug therapy
CPT/HCPCS: 36000; 36415; 36600; 71010; 71020; 71260; 73630; 74176; 80048; 80053; 81000; 82375; 82803; 82962; 83036; 83735; 84132; 84484; 85025; 85379; 87040; 87077; 87086; 87631; 93005; 93268; 94640; 94760; 94761; 96360; 96361; 96365; 96374; 96375; 99285; G0378; J0696; J1170; J1650; J1940; J1956; J2405; J2543; J2550; J3475; J3480; A9270-GY

== ENCOUNTER 2016-11-09 20:18 | Inpatient (IN) | payer OTHER ==
[2016-11-09] MEDS ORDERED: Sodium Chloride 0.9% 1000 ML 1,000 ML IV STA (20:34)
--- NOTE | 2016-11-09 20:41 | ERPHSYRPT ---
- History of Present Illness Time Seen by Provider: 11/09/16 20:36 Source: patient, family Exam Limitations: no limitations Patient Subjective Stated Complaint: Pt sts nausea since yesterday. Sts fever at home, hightest temp 101. Took 600 mg ibuprofen SOFT CRAB SHEDDER 1 hour ago. Pt sts general malaise. Was hospitalized at beginning of the month for a week for kidney stones. Denies symptoms today. Sts vomited yesterday x 2. Denies change in bowel habits - sts "i live with diarrhea". Triage Nursing Assessment: Pt alert, oriented, answers all questions appropriately. Ambulatory to tx room, steady gait noted. Heart RRR. Lungs CTA bilat non-labored. ABD SNT x 4 quadrants, + bowel sounds noted. Physician History: c/o fever, generalised weakness, recently admitted with UTI on october 162016. c/o diarrhea, Timing/Duration: day(s) Fever Severity: moderate Fever Therapy SOFT CRAB SHEDDER: Ibuprofen Associated Symptoms: abdominal pain, muscle aches, nausea/vomiting, weakness International travel in last 2 weeks: No Allergies/Adverse Reactions: meperidine [From Demerol] Allergy (Verified 11/09/16 20:38) sulfamethoxazole [From Bactrim] Adverse Reaction (Severe, Verified 11/09/16 20: 38) Nausea and Vomiting MADE HER VERY SICK trimethoprim [From Bactrim] Adverse Reaction (Severe, Verified 11/09/16 20:38) Nausea and Vomiting MADE HER VERY SICK Home Medications: Cranberry Conc/Ascorbic Acid [Cranberry Urinary Comfort Sfgl] 1 tablet PO DAILY 07/06/14 [History] Escitalopram Oxalate [Lexapro] 1 tablet PO DAILY 07/06/14 [History] Simvastatin 40 mg [Zocor 40 mg] 1 tablet PO DAILY 07/06/14 [History] Biotin 10,000 mcg PO DAILY 10/16/16 [History] Hx Tetanus, Diphtheria Vaccination/Date Given: Yes Hx Influenza Vaccination/Date Given: No Hx Pneumococcal Vaccination/Date Given: No Immunizations Up to Date: Yes - Review of Systems Constitutional: Fever, Chills, Fatigue, Lethargy, Weakness, Weight Loss Eyes: No Symptoms Ears, Nose, & Throat: No Symptoms Respiratory: No Cough, No Dyspnea Cardiac: No Chest Pain, No Edema, No Syncope Abdominal/Gastrointestinal: Abdominal Pain, Nausea, Vomiting, Diarrhea Genitourinary Symptoms: No Dysuria Musculoskeletal: No Back Pain, No Neck Pain Skin: No Rash Neurological: No Dizziness, No Focal Weakness, No Sensory Changes Psychological: No Symptoms Endocrine: No Symptoms All Other Systems: Reviewed and Negative - Past Medical History Neurological History: No Pertinent History ENT History: No Pertinent History Cardiac History: No Pertinent History Respiratory History: No Pertinent History Endocrine Medical History: No Pertinent History Musculoskeletal History: No Pertinent History GI Medical History: No Pertinent History History: Other Psycho-Social History: Depression, Eating Disorders Female Reproductive Disorders: No Pertinent History Other Medical History: bladder infections - Past Surgical History Past Surgical History: Yes Neuro Surgical History: No Pertinent History Cardiac: No Pertinent History Respiratory: No Pertinent History Gastrointestinal: Appendectomy Genitourinary: No Pertinent History Musculoskeletal: No Pertinent History Female Surgical History: No Pertinent History Other Surgical History: right breast biopsy - Social History Smoking Status: Former smoker How long have you smoked: 42 Exposure to second hand smoke: No Drug Use: none Patient Lives Alone: No - Nursing Vital Signs Nursing Vital Signs: Initial Vital Signs Temperature 100.0 F Temperature Source Oral Pulse Rate 105 Respiratory Rate 16 Blood Pressure [Right Arm] 128/80 - Physical Exam General Appearance: no apparent distress, alert Eye Exam: PERRL/EOMI ENT Exam: normal ENT inspection, No pharyngeal erythema, No tonsillar exudate Neck Exam: supple, full range of motion, No meningismus Respiratory Exam: normal breath sounds, lungs clear, no respiratory distress Cardiovascular/Chest Exam: normal heart sounds, regular rate/rhythm, No murmur, No edema Gastrointestinal/Abdominal Exam: soft, non tender, no distention Extremity Exam: non-tender, normal range of motion, normal inspection, normal capillary refill Neurologic Exam: alert, oriented x 3, cooperative, sales contract administrator II-XII nml as tested, normal mood/affect, sensation nml, No motor deficits Skin Exam: normal color, warm, dry, No rash SpO2: 96 Oxygen Delivery: Room Air - Course Nursing assessment & vital signs reviewed: Yes Ordered Tests: Active Orders 24 hr Category Date Time Status IV Insertion STAT Care 11/09/16 21:03 Active BLOOD CULTURE Stat Lab 11/09/16 20:35 Ordered CBC W DIFF Stat Lab 11/09/16 20:55 Completed CMP Stat Lab 11/09/16 20:55 Completed CULTURE,URINE Stat Lab 11/09/16 20:35 Ordered Lactic Acid Urgent Lab 11/09/16 21:00 Completed UA Stat Lab 11/09/16 21:45 Received Medication Summary Discontinued Medications Generic Name Dose Route Start Last Admin Trade Name Eduar PRN Reason Stop Dose Admin Sodium Chloride 1,000 mls @ 999 mls/hr 11/09/16 20:34 11/09/16 20:55 Sodium Chloride 0.9% 1000 Ml IV 11/09/16 21:34 999 mls/hr .Q1H1M STA Administration Sodium Chloride Confirm 11/09/16 20:45 Sodium Chloride 0.9% 1000 Ml Administered 11/09/16 20:46 Dose 1,000 mls @ ud .ROUTE .STK-MED ONE Ondansetron HCl 4 mg 11/09/16 20:46 11/09/16 20:55 Zofran 4 Mg/2 Ml Vial IV 11/09/16 20:47 4 mg STAT ONE Administration Ondansetron HCl Confirm 11/09/16 20:46 Zofran 4 Mg/2 Ml Vial Administered 11/09/16 20:47 Dose 4 mg .ROUTE .STK-MED ONE Lab/Rad Data: Laboratory Result Diagrams 11/09/16 20:55 11/09/16 20:55 Laboratory Results 11/09/16 11/09/16 11/09/16 Range/Units 21:00 20:55 20:55 WBC 6.4 (4.0-10.5) K/mm3 RBC 3.35 L (4.1-5.4) M/mm3 Hgb 10.4 L (12.0-16.0) gm/dl Hct 31.9 L (35-47) % MCV 95.2 (78-100) fl MCH 31.0 (26-32) pg MCHC 32.6 (32-36) g/dl RDW 12.9 (11.5-14.0) % Plt Count 229 (150-450) K/mm3 MPV 9.5 (6-9.5) fl Gran % 70.7 H (36.0-66.0) % Lymphocytes % 18.0 L (24.0-44.0) % Monocytes % 10.8 (0.0-12.0) % Eosinophils % 0.3 (0.00-5.0) % Basophils % 0.2 (0.0-0.4) % Basophils # 0.01 (0-0.4) Sodium 140 (136-145) mEq/L Potassium 2.1 L* (3.5-5.1) mEq/L Chloride 102 (98-107) mEq/L Carbon Dioxide 26.2 (21-32) mEq/L Anion Gap 12.8 (5-15) MEQ/L BUN 13 (9-20) mg/dL Creatinine 0.94 (0.55-1.30) mg/dl Estimated GFR > 60 ML/MIN Glucose 126 H (70-110) MG/DL Lactic Acid 0.8 (0.4-2.0) Calcium 8.6 (8.5-10.1) mg/dL Total Bilirubin 0.3 (0.2-1.0) mg/dL AST 11 L (15-37) U/L ALT 9 L (12-78) U/L Alkaline Phosphatase 70 (46-116) U/L Serum Total Protein 7.3 (6.4-8.2) gm/dL Albumin 2.8 L (3.4-5.0) g/dL - Progress Progress: unchanged Discussed with : Margret Will see patient in: hospital (observation) Counseled pt/family regarding: lab results, diagnosis, need for follow-up, rad results - Departure Time of Disposition: 21:47 Departure Disposition: Observation Clinical Impression: Hypokalemia, Dehydration Diarrhea Qualifiers: Diarrhea type: unspecified type Qualified Code(s): R19.7 - Diarrhea, unspecified Condition: Fair Critical Care Time: Yes Critical Care Time(excluding separately billable procedures): 30-74 minutes Referrals: PARTH MARISCAL [Primary Care Provider] -
[2016-11-09] MEDS ORDERED: Sodium Chloride 0.9% 1000 ML 1,000 ML ONE (20:45)
[2016-11-09] MEDS ORDERED: Zofran 4 MG/2 ML VIAL ONE (20:46)
[2016-11-09] MEDS ORDERED: Zofran 4 MG/2 ML VIAL IV ONE (20:46)
[2016-11-09 21:01] LABS: BASOPHIL % 0.2 % (0.0-0.4); Eosinophil % 0.3 % (0.00-5.0); Granulocytes % 70.7 % (36.0-66.0); Mean Cell Volume 95.2 fl (78-100); Mean Platelet Volume 9.5 fl (6-9.5); Monocytes % 10.8 % (0.0-12.0); Platelet Count 229 K/mm3 (150-450); Red Blood Count 3.35 M/mm3 (4.1-5.4); Red Cell Distribution Width 12.9 % (11.5-14.0); White Blood Count 6.4 K/mm3 (4.0-10.5)
[2016-11-09 21:21] LABS: ALBUMIN 2.8 g/dL (3.4-5.0); ALKALINE PHOSPHATASE 70 U/L (46-116); ANION GAP 12.8 MEQ/L (5-15); BILIRUBIN,TOTAL 0.3 mg/dL (0.2-1.0); BLOOD UREA NITROGEN 13 mg/dL (9-20); CHLORIDE 102 mEq/L (98-107); Carbon Dioxide 26.2 mEq/L (21-32); Glucose 126 MG/DL (70-110); SGOT/AST 11 U/L (15-37); SGPT/ALT 9 U/L (12-78); SODIUM 140 mEq/L (136-145); Total Protein 7.3 gm/dL (6.4-8.2)
[2016-11-09 21:22] LABS: Potassium 2.1 mEq/L (3.5-5.1)
[2016-11-09 21:57] LABS: Bacteria FEW /HPF (NEGATIVE); COMPLETE URINE MICROSCOPIC? YES; Collection Type CLEAN CATCH; Epithelial Cells MANY /HPF (FEW); Mucus SLIGHT /HPF (NEGATIVE); Ph 6.5 (5-6)
[2016-11-09] MEDS ORDERED: Zofran 4 MG/2 ML VIAL IV PRN (22:17)
[2016-11-09] MEDS: SODIUM CHLORIDE 0.9% W/ 40 mEq KCL 1000ML 1,000 ML IV SCH (22:30)
[2016-11-09] MEDS: Phenergan 25 MG INJ IV PRN (23:18)
[2016-11-10 06:22] LABS: ANION GAP 13.6 MEQ/L (5-15); BLOOD UREA NITROGEN 9 mg/dL (9-20); CHLORIDE 109 mEq/L (98-107); Glucose 99 MG/DL (70-110); SODIUM 144 mEq/L (136-145)
[2016-11-10 06:25] LABS: Potassium 2.4 mEq/L (3.5-5.1)
[2016-11-10] MEDS: SODIUM CHLORIDE 0.9% W/ 40 mEq KCL 1000ML 1,000 ML IV SCH ×2 (07:33→17:40)
[2016-11-10] MEDS: POTASSIUM CHLORIDE 20 mEq IN WATER 100ML 100 ML IV SCH ×2 (09:03→12:04)
[2016-11-10] MEDS ORDERED: IMODIUM 2 MG PO PRN (09:29)
[2016-11-10] MEDS ORDERED: MEDICATION INTERVENTION MC PRN ×2 (11:31→11:38)
[2016-11-10] MEDS ORDERED: Klor Con 10 MEQ PO SCH (11:45)
[2016-11-10] MEDS: Lexapro 10 MG PO SCH (12:02)
[2016-11-10] MEDS: ZOCOR 20MG PO SCH (21:38)
[2016-11-10] MEDS: FLAGYL 500 MG IVPB 100 ML IV SCH (21:38)
[2016-11-10] MEDS: Sodium Chloride 0.9% W/ 20 mEq KCl/LITER 1,000 ML IV SCH (21:39)
[2016-11-10] MEDS: Phenergan 25 MG INJ IV PRN (22:00)
[2016-11-11] MEDS: TYLENOL 325 MG PO PRN ×2 (04:15→22:14)
[2016-11-11 06:03] LABS: BASOPHIL % 0.1 % (0.0-0.4); Eosinophil % 1.4 % (0.00-5.0); Lymphocytes % 25.2 % (24.0-44.0); Mean Cell Volume 97.9 fl (78-100); Mean Platelet Volume 9.6 fl (6-9.5); Monocytes % 8.3 % (0.0-12.0); Platelet Count 207 K/mm3 (150-450); Red Blood Count 2.91 M/mm3 (4.1-5.4); White Blood Count 7.2 K/mm3 (4.0-10.5)
[2016-11-11 06:13] LABS: ALBUMIN 2.2 g/dL (3.4-5.0); ALKALINE PHOSPHATASE 56 U/L (46-116); ANION GAP 11.9 MEQ/L (5-15); BILIRUBIN,TOTAL 0.2 mg/dL (0.2-1.0); BLOOD UREA NITROGEN 6 mg/dL (9-20); CHLORIDE 111 mEq/L (98-107); Glucose 102 MG/DL (70-110); SGOT/AST 11 U/L (15-37); SODIUM 144 mEq/L (136-145); Total Protein 6.2 gm/dL (6.4-8.2)
[2016-11-11 06:47] LABS: Potassium 2.9 mEq/L (3.5-5.1)
[2016-11-11 06:48] LABS: Mean Corpuscular Hemoglobin 31.2 pg (26-32)
[2016-11-11 06:56] LABS: SGPT/ALT < 6 U/L (12-78)
--- NOTE | 2016-11-11 07:39 | HP ---
CHIEF COMPLAINT: Diarrhea and vomiting. HISTORY OF PRESENT ILLNESS: The patient reports that she has had diarrhea. She has been having this for the past several years where she reports hourly bowel movements. The patient denies any blood in the stool. She has had multiple colonoscopies. She said about four with the last one or two years ago which was normal. She did have polyps previously diagnosed. She reports that this tends to run in her family and she had a grandmother who of this problem. The patient on evaluation was found to be profoundly hypokalemic and needed to be admitted to the hospital for potassium repletion and further evaluation for diarrhea. PAST MEDICAL/SURGICAL HISTORY: Significant for three weeks ago having had a pyelonephritis episode for which she was treated with antibiotics. She reports history of hyperlipidemia and depression. MEDICATIONS: Her home medication list includes biotin, Simvastatin, Lexapro, vitamin C. ALLERGIES: DEMEROL, BACTRIM. PHYSICAL EXAMINATION: Reveals a thin, white female age of 60. Her vital signs on admission showed temperature 100F oral, pulse 105, respiratory rate 16, blood pressure 128/80. HEENT: Normocephalic, atraumatic. Pupils equal round reactive to light. Extraocular movements intact. Oropharynx is somewhat dry. NECK: Supple without lymphadenopathy, thyromegaly or JVD. CHEST: Clear to auscultation with good air movement bilaterally. HEART: Regular rate and rhythm without murmurs, rubs or gallops. ABDOMEN: Diffusely tender particularly in the bilateral lower quadrant but no palpable masses were felt. No guarding or rebound. EXTREMITIES: Without cyanosis, clubbing or edema. NEUROLOGIC: The patient is alert and oriented x3. No focal deficits were noted. LAB DATA AND TESTS: UA with specific gravity of 1.015. Lactic acid 0.8. Metabolic panel showed glucose nonfasting 126, BUN 13, creatinine 0.94. Electrolytes showed the potassium to be 2.1. Her liver enzymes were normal. CBC showed a hemoglobin of 10.4, white blood cell count 6,400, PLT count 229,000. ASSESSMENT: A patient with: 1) Diarrhea chronic in nature now in febrile. She was swabbed for influenza which was negative. She has not been tested for Clostridium difficile recently. We will check this test. She has been placed on Imodium to help decrease the diarrhea. 2) Profound hypokalemia. The patient has already been treated with IV potassium in the emergency room. She has been admitted for further potassium infusion and to increase her oral potassium as well. The patient does report that she had been diagnosed previously with gluten enteropathy but has not been observing a gluten-free diet. We will have her have a dietary consultation and place her on a gluten-free diet while she is here. We will give her Imodium for decreasing the bowel movements and considering doing additional testing including biopsies for celiac sprue through upper GI and possibility of colonoscopy again to test for collagenous colitis, Crohn's or ulcerative colitis.
[2016-11-11] MEDS: POTASSIUM CHLORIDE 20 mEq IN WATER 100ML 100 ML IV SCH ×2 (07:51→09:58)
[2016-11-11] MEDS: FLAGYL 500 MG IVPB 100 ML IV SCH ×3 (09:49→22:03)
[2016-11-11] MEDS: Klor Con 10 MEQ PO SCH ×3 (09:49→22:03)
[2016-11-11] MEDS: Lexapro 10 MG PO SCH (09:49)
[2016-11-11] MEDS ORDERED: NON-FORMULARY ITEM (Potassium Chloride [Klor-Con 8] 8 MEQ) PO SCH (10:00)
[2016-11-11] MEDS ORDERED: NON-FORMULARY ITEM (Biotin [Biotin] 10,000 MCG) PO SCH (10:00)
[2016-11-11] MEDS ORDERED: [UNRECOGNIZED DRUG - OTHER] PO SCH (10:00)
[2016-11-11] MEDS ORDERED: CRANBERRY PO SCH (10:00)
[2016-11-11] MEDS ORDERED: ESCITALOPRAM OXALATE PO SCH (10:00)
[2016-11-11] MEDS ORDERED: SIMVASTATIN 40 MG PO SCH (10:00)
[2016-11-11] MEDS ORDERED: ASCORBIC ACID PO SCH (10:00)
[2016-11-11] MEDS: Sodium Chloride 0.9% W/ 20 mEq KCl/LITER 1,000 ML IV SCH ×2 (11:29→22:06)
[2016-11-11] MEDS: ZOCOR 20MG PO SCH (22:03)
[2016-11-11] MEDS: Phenergan 25 MG INJ IV PRN (23:40)
[2016-11-12 05:28] LABS: BASOPHIL % 0.2 % (0.0-0.4); Eosinophil % 2.9 % (0.00-5.0); Granulocytes % 51.9 % (36.0-66.0); Lymphocytes % 37.5 % (24.0-44.0); Mean Cell Volume 98.7 fl (78-100); Mean Corpuscular Hemoglobin 31.3 pg (26-32); Mean Platelet Volume 9.3 fl (6-9.5); Monocytes % 7.5 % (0.0-12.0); Platelet Count 209 K/mm3 (150-450); Red Blood Count 2.97 M/mm3 (4.1-5.4); Red Cell Distribution Width 12.9 % (11.5-14.0); White Blood Count 4.8 K/mm3 (4.0-10.5)
[2016-11-12 05:52] LABS: ALBUMIN 2.2 g/dL (3.4-5.0); ALKALINE PHOSPHATASE 55 U/L (46-116); ANION GAP 10.1 MEQ/L (5-15); BILIRUBIN,TOTAL 0.2 mg/dL (0.2-1.0); BLOOD UREA NITROGEN 7 mg/dL (9-20); CHLORIDE 115 mEq/L (98-107); Carbon Dioxide 26.7 mEq/L (21-32); Glucose 95 MG/DL (70-110); Potassium 3.7 mEq/L (3.5-5.1); SGOT/AST 13 U/L (15-37); SODIUM 148 mEq/L (136-145); Total Protein 5.9 gm/dL (6.4-8.2)
[2016-11-12 06:04] LABS: SGPT/ALT < 6 U/L (12-78)
[2016-11-12] MEDS: FLAGYL 500 MG IVPB 100 ML IV SCH ×3 (08:53→21:39)
[2016-11-12] MEDS: Lexapro 10 MG PO SCH (08:53)
[2016-11-12] MEDS: Klor Con 10 MEQ PO SCH ×3 (08:53→21:39)
[2016-11-12] MEDS: Sodium Chloride 0.9% W/ 20 mEq KCl/LITER 1,000 ML IV SCH (09:02)
[2016-11-12] MEDS ORDERED: PHARMACY DOSING REQUEST MC ONE (11:34)
[2016-11-12] MEDS: Magnesium 1 Gm / 100 Ml D5W*** 100 ML IV SCH ×2 (12:28→13:14)
[2016-11-12] MEDS: ZOCOR 20MG PO SCH (21:39)
[2016-11-13] MEDS: Sodium Chloride 0.9% W/ 20 mEq KCl/LITER 1,000 ML IV SCH (01:01)
[2016-11-13 05:54] LABS: ANION GAP 11.9 MEQ/L (5-15); BLOOD UREA NITROGEN 8 mg/dL (9-20); CHLORIDE 115 mEq/L (98-107); Carbon Dioxide 23.5 mEq/L (21-32); Glucose 95 MG/DL (70-110); Potassium 4.5 mEq/L (3.5-5.1); SODIUM 146 mEq/L (136-145)
[2016-11-13 07:34] VITALS: BP 154/89; PULSE 94; O2SAT 96
--- NOTE | 2016-11-13 09:09 | PCM.DCORD ---
- Discharge Discharge Date: 11/13/16 Disposition: Home, Self-Care Condition: Fair Prescriptions: New Metronidazole 500 mg [Flagyl 500 MG] 500 mg PO TID #21 tablet Potassium Chloride 10 Meq Tab* [Klor Con 10 MEQ] 10 meq PO TID #100 tab Continue Simvastatin 40 mg [Zocor 40 mg] 1 tablet PO DAILY Escitalopram Oxalate [Lexapro] 1 tablet PO DAILY Cranberry Conc/Ascorbic Acid [Cranberry Urinary Comfort Sfgl] 1 tablet PO DAILY Biotin 10,000 mcg PO DAILY Potassium Chloride [Klor-Con 8] 8 meq PO DAILY #30 tablet.er Follow up with: PARTH MARICSAL [Primary Care Provider] -
[2016-11-13] MEDS: FLAGYL 500 MG IVPB 100 ML IV SCH (09:10)
[2016-11-13] MEDS: Lexapro 10 MG PO SCH (09:10)
[2016-11-13] MEDS: Klor Con 10 MEQ PO SCH (09:10)
--- NOTE | 2016-11-13 10:28 | DS ---
DISCHARGE DIAGNOSES: 1) CLOSTRIDIUM DIFFICILE COLITIS. 2) HYPOKALEMIA. HOSPITAL COURSE: The patient is a 60 year-old white female who reports she has chronic diarrhea that has gotten worse over the past three weeks. She became profoundly weak due to her persistent diarrhea. She was evaluated in the emergency room and admitted to the hospital for IV fluid administration. The patient was tested for Clostridium difficile and was found to be positive. She was begun on IV Flagyl. She was also noted to have a potassium of 2.1. She was given potassium IV and orally to eventually replete the potassium. The patient was feeling better with the above treatment and IV fluid hydration. She was felt to be ready for discharge home by the morning of 11/13/2016. She will receive Flagyl 500 mg t.i.d. for an additional week. She was given potassium 10 mEq t.i.d. She will have her potassium remeasured in the office in one week. She will be taking Imodium also to help with her loose stools in the meantime as she has not been febrile and her white blood cell count has been normal.
== END 2016-11-13 10:45 | disposition home or self-care (01) | DRG 373 ==
LOC: ED 20:18 → MED SURG 22:07 → OBSVTOIN 11-10 16:08
PROVIDERS: ADMIT Family Medicine; ATTEND Family Medicine
DX: A04.7 Enterocolitis due to Clostridium difficile (principal); E87.6 Hypokalemia; Z79.899 Other long term (current) drug therapy
CPT/HCPCS: 36000; 36415; 80048; 80053; 81000; 83605; 83735; 84132; 85025; 87086; 87493; 87631; 93268; 96360; 96374; 99285; G0378; J2405; J2550; J3475; J3480; A9270-GY

== ENCOUNTER 2017-03-26 06:06 | Day surgery (SDC) | payer OTHER ==
[~2017-03-26 06:06] MED LIST: Lactated Ringers 1,000 ML IV SCH
[2017-03-26] MEDS ORDERED: DIPRIVAN 200 MG/20 ML IV ONE (06:07)
[2017-03-26] MEDS ORDERED: Versed 2 MG/2 ML Injection IV ONE (06:07)
[2017-03-26] MEDS ORDERED: Lactated Ringers 1,000 ML IV ONE (08:11)
--- NOTE | 2017-03-26 08:46 | OP ---
SURGERY DATE/TIME: 03/26/2017 0734 PREOPERATIVE DIAGNOSIS: Chronic diarrhea. POSTOPERATIVE DIAGNOSIS: Normal colon. PROCEDURE: Diagnostic colonoscopy. SURGEON: Ponce Agustin M.D. ANESTHESIA: MAC by Pino Livingston CRNA. ESTIMATED BLOOD LOSS: None. SPECIMENS: Stool for Clostridium difficile, ova and parasite, culture and sensitivity. DESCRIPTION OF PROCEDURE: After informed written consent was obtained, the patient was taken to the endoscopy suite. Intermittent blood pressure monitoring and continuous pulse oximetry were used throughout the entirety of the procedure. After she underwent monitored anesthesia, a digital rectal exam showed normal sphincter tone and no internal lesions. The scope was inserted into the rectum and sequentially the entire colonic mucosa was traversed. The level of cecum was reached and verified with direct visualization of ileocecal valve. Liquid stool was present throughout most of the length of the colon and sample was taken in a trap and sent for culture and sensitivity, ova and parasite and Clostridium difficile toxin. The mucosal structures appeared within normal limits, free of any lesions or defects upon withdrawal. Retroflexion was performed prior to withdrawal and was within normal limits. There were some mild external hemorrhoids noted. The scope was removed and the patient was transferred to the recovery room in excellent condition.
[2017-03-26 09:55] VITALS: BP 103/69; PULSE 58; O2SAT 98
[2017-03-27 19:00] LABS: Giardia Antigen EIA Negative (Negative)
== END 2017-03-26 09:45 | disposition home or self-care (01) ==
LOC: SDC 06:06
PROVIDERS: ATTEND Family Medicine
PROC: 0DJD8ZZ Inspection of Lower Intestinal Tract, Via Natural or Artificial Opening Endoscopic (ICD-10-PCS; principal; 2017-03-26)
DX: R19.7 Diarrhea, unspecified (principal)
CPT/HCPCS: 00810; 36415; 87045; 87046; 87177; 87209; 87335; 87493; J2250; J2704

== ENCOUNTER 2018-09-24 06:07 | Day surgery (SDC) | payer OTHER ==
[2018-09-24] MEDS ORDERED: Ketamine HCl 50 MG/ML IJ ONE (06:08)
[2018-09-24] MEDS ORDERED: DIPRIVAN 200 MG/20 ML IV ONE (06:08)
[2018-09-24] MEDS ORDERED: Lactated Ringers 1,000 ML IV ONE (08:22)
[2018-09-24 09:23] VITALS: PULSE 64; O2SAT 99
[2018-09-24 09:42] VITALS: BP 119/72
--- NOTE | 2018-09-25 08:26 | OP ---
SURGERY DATE/TIME: 09/24/2018 0800 PREOPERATIVE DIAGNOSES: 1) Weight loss. 2) Chronic diarrhea. POSTOPERATIVE DIAGNOSIS: Moderate gastritis. PROCEDURE: EGD. SURGEON: Ponce Agustin M.D. ANESTHESIA: MAC by Warner Kilgore CRNA. ESTIMATED BLOOD LOSS: Minimal. SPECIMENS: Two cold forceps biopsies taken from the duodenum for celiac and two cold forceps biopsies from the gastric antrum for Helicobacter pylori. DESCRIPTION OF PROCEDURE: After informed written consent was obtained, the patient was taken to the endoscopy suite. She had a bite block was inserted and underwent MAC. After adequate level of anesthesia was assessed, the endoscope was inserted into the posterior oropharynx. Under direct visualization the esophagus was traversed. The esophageal mucosa was free of any lesions or defects. The gastroesophageal junction appeared normal upon entry into the gastric cavity. Gastric mucosa had a normal rugated appearance free of any lesions or defect until the level of the antrum was reached. There was significant gastritis-type changes with early ulceration but no active bleeding. The pylorus was traversed and the first and second portions of the duodenum had a normal mucosal appearance. Two small intestine biopsies were taken and sent for celiac testing from the duodenum. Two cold forceps biopsies were then taken from the gastric antrum and sent for Helicobacter pylori testing. No other lesions were encountered upon withdrawal. The scope was removed and the patient was transferred to the recovery room in good condition. I have advised that she hold all NSAID's at this time and will await pathology results.
== END 2018-09-24 10:00 | disposition home or self-care (01) ==
LOC: SDC 06:07
PROVIDERS: ATTEND Family Medicine
DX: K29.70 Gastritis, unspecified, without bleeding (principal); R63.4 Abnormal weight loss; K52.9 Noninfective gastroenteritis and colitis, unspecified; Z79.899 Other long term (current) drug therapy
CPT/HCPCS: 88305; J2704

== ENCOUNTER 2018-09-26 13:50 | Emergency (ER) | payer OTHER ==
[2018-09-26] MEDS ORDERED: Pepcid 20 MG VIAL IV ONE ×2 (14:38→14:57)
[2018-09-26] MEDS ORDERED: Sodium Chloride 0.9% 1000 ML 1,000 ML IV STA (14:38)
[2018-09-26] MEDS ORDERED: Zofran 4 MG/2 ML VIAL IV ONE (14:38)
--- NOTE | 2018-09-26 14:46 | ERPHSYRPT ---
- History of Present Illness Time Seen by Provider: 09/26/18 14:42 Exam Limitations: no limitations Patient Subjective Stated Complaint: pt here for fever,weakness, chronic loose stools, nausea, she states she had a EGD done on , pt states she had fever of 97.6. co aches, pt was able to eat today, had less than 10 stools today Triage Nursing Assessment: pt alert, resp easy, skin w/d/p. abd soft, nontender with bs hear, no edema noted Physician History: 62 y/o white female with sig weight loss over last 4 months and presents with 2 day in post upper endoscopy fever, vomiting, myalgias and arthralgias. in distant past, pt has had anorexia. pt has chronic diarrhea. pt recently was dehydrated and required ivf prior to her endoscopy. pt here for lab check, rehydration and check for influenza a and b. Timing/Duration: day(s) (2) Activities at Onset: none Abdominal Pain Onset Location: generalized abdomen Pain Radiation: no radiation Severity of Pain-Max: mild Severity of Pain-Current: mild Modifying Factors: Improves With: vomiting Associated Symptoms: diarrhea (chronic), nausea, vomiting Previous symptoms: same symptoms as today Allergies/Adverse Reactions: meperidine [From Demerol] Allergy (Mild, Verified 09/26/18 14:13) nauseated and diarrhea sulfamethoxazole [From Bactrim] Adverse Reaction (Severe, Verified 09/26/18 14: 13) Nausea and Vomiting MADE HER VERY SICK trimethoprim [From Bactrim] Adverse Reaction (Severe, Verified 09/26/18 14:13) Nausea and Vomiting MADE HER VERY SICK Home Medications: Escitalopram Oxalate [Lexapro] 20 mg PO DAILY 07/06/14 [History] Rosuvastatin Calcium [Crestor] 20 mg PO DAILY 03/18/17 [History] Alprazolam 0.25 mg [xanAX 0.25 MG] 0.25 mg PO BID 09/16/18 [History] Dicyclomine HCl 10 mg PO TID 09/16/18 [History] Loperamide HCl 2 mg [Imodium 2 mg] 2 mg PO TID 09/16/18 [History] Biotin 1,000 mcg PO DAILY 09/24/18 [History] Potassium Chloride 10 Meq Tab* [Klor Con 10 MEQ] 10 meq PO BID 09/24/18 [ History] Hx Tetanus, Diphtheria Vaccination/Date Given: Yes Hx Influenza Vaccination/Date Given: No Hx Pneumococcal Vaccination/Date Given: No Immunizations Up to Date: Yes - Review of Systems Constitutional: No Symptoms Eyes: No Symptoms Ears, Nose, & Throat: No Symptoms Respiratory: No Symptoms Cardiac: No Symptoms Abdominal/Gastrointestinal: Abdominal Pain, Nausea, Vomiting, Diarrhea Genitourinary Symptoms: No Symptoms Musculoskeletal: Arthralgias, Myalgias Skin: No Symptoms Neurological: No Symptoms Psychological: No Symptoms Endocrine: No Symptoms Hematologic/Lymphatic: No Symptoms Immunological/Allergic: No Symptoms All Other Systems: Reviewed and Negative - Past Medical History Pertinent Past Medical History: Yes Neurological History: No Pertinent History ENT History: No Pertinent History Cardiac History: High Cholesterol Respiratory History: No Pertinent History Endocrine Medical History: No Pertinent History Musculoskeletal History: No Pertinent History GI Medical History: No Pertinent History History: Other Psycho-Social History: Depression, Eating Disorders Female Reproductive Disorders: No Pertinent History Other Medical History: bladder infections, kidney stones October 2016,anorexia. recent diarrhea - Past Surgical History Past Surgical History: Yes Neuro Surgical History: No Pertinent History Cardiac: No Pertinent History Respiratory: No Pertinent History Gastrointestinal: Appendectomy Genitourinary: No Pertinent History Musculoskeletal: No Pertinent History Female Surgical History: Dilation & Curettage Other Surgical History: right breast biopsy-benign - Social History Smoking Status: Current every day smoker How long have you smoked: 44 yrs Exposure to second hand smoke: Yes Drug Use: none Patient Lives Alone: No - Female History Hx Last Menstrual Period: psot Hx Now: No - Nursing Vital Signs Nursing Vital Signs: Initial Vital Signs Temperature 97.4 F 09/26/18 14:06 Pulse Rate 85 09/26/18 14:06 Respiratory Rate 16 09/26/18 14:06 Blood Pressure 117/85 09/26/18 14:06 O2 Sat by Pulse Oximetry 100 09/26/18 14:06 Pain Scale Pain Intensity 0 - Physical Exam General Appearance: mild distress, alert, anxiety Eye Exam: PERRL/EOMI Ears, Nose, Throat Exam: normal ENT inspection, dry mucous membranes Neck Exam: normal inspection, non-tender, supple, full range of motion Respiratory Exam: normal breath sounds, lungs clear, airway intact, No chest tenderness, No respiratory distress, No accessory muscle use, No rhonchi, No wheezing, No stridor Cardiovascular Exam: regular rate/rhythm, normal heart sounds, normal peripheral pulses Gastrointestinal/Abdomen Exam: soft, normal bowel sounds, tenderness (mild diffuse), No distention, No guarding, No rebound Pelvic Exam: not done Rectal Exam: not done Back Exam: normal inspection, normal range of motion, No CVA tenderness, No vertebral tenderness Extremity Exam: normal inspection, normal range of motion, pelvis stable Neurologic Exam: alert, oriented x 3, cooperative, main line assembler II-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 nml as tested Skin Exam: normal color, warm, dry Lymphatic Exam: No adenopathy SpO2 Interpretation: normal SpO2: 100 O2 Delivery: Room Air - Course Nursing assessment & vital signs reviewed: Yes Ordered Tests: Active Orders 24 hr Category Date Time Status Clean Catch Urine Specimen STAT Care 09/26/18 14:38 Active KUB Stat Exams 09/26/18 14:40 Taken AMYLASE Stat Lab 09/26/18 14:30 Completed BMP Stat Lab 09/26/18 14:30 Completed CBC W DIFF Stat Lab 09/26/18 14:30 Completed LIPASE Stat Lab 09/26/18 14:30 Completed UA W/RFX UR CULTURE Stat Lab 09/26/18 14:41 Completed Medication Summary Discontinued Medications Generic Name Dose Route Start Last Admin Trade Name Ranq PRN Reason Stop Dose Admin Famotidine 20 mg 09/26/18 14:38 09/26/18 15:03 Pepcid 20 Mg Vial IV 09/26/18 14:39 20 mg STAT ONE Administration Famotidine Confirm 09/26/18 14:57 Pepcid 20 Mg Vial Administered 09/26/18 14:58 Dose 20 mg IV .STK-MED ONE Sodium Chloride 1,000 mls @ 999 mls/hr 09/26/18 14:38 09/26/18 16:39 Sodium Chloride 0.9% 1000 Ml IV 09/26/18 15:38 Infused .Q1H1M STA Infusion Sodium Chloride Confirm 09/26/18 14:57 Sodium Chloride 0.9% 1000 Ml Administered 09/26/18 14:58 Dose 1,000 mls @ ud .ROUTE .STK-MED ONE Ondansetron HCl 4 mg 09/26/18 14:38 09/26/18 15:03 Zofran 4 Mg/2 Ml Vial IV 09/26/18 14:39 4 mg STAT ONE Administration Ondansetron HCl Confirm 09/26/18 14:57 Zofran 4 Mg/2 Ml Vial Administered 09/26/18 14:58 Dose 4 mg .ROUTE .STK-MED ONE Lab/Rad Data: Laboratory Result Diagrams 09/26/18 14:30 09/26/18 14:30 Laboratory Results 09/26/18 09/26/18 09/26/18 Range/Units 14:50 14:41 14:30 WBC (4.0-10.5) K/mm3 RBC (4.1-5.4) M/mm3 Hgb (12.0-16.0) gm/dl Hct (35-47) % MCV (78-100) fl MCH (26-32) pg MCHC (32-36) g/dl RDW (11.5-14.0) % Plt Count (150-450) K/mm3 MPV (6-9.5) fl Gran % (36.0-66.0) % Eos # (Auto) (0-0.5) Absolute Lymphs (auto) (1.0-4.6) Absolute Monos (auto) (0.0-1.3) Lymphocytes % (24.0-44.0) % Monocytes % (0.0-12.0) % Eosinophils % (0.00-5.0) % Basophils % (0.0-0.4) % Absolute Granulocytes (1.4-6.9) Basophils # (0-0.4) Sodium 139 (137-145) mmol/L Potassium 3.8 (3.5-5.1) mmol/L Chloride 108 H (98-107) mmol/L Carbon Dioxide 20 L (22-30) mmol/L Anion Gap 14.8 (5-15) MEQ/L BUN 17 (7-17) mg/dL Creatinine 0.86 (0.52-1.04) mg/dL Estimated GFR > 60.0 ML/MIN Glucose 82 (74-106) mg/dL Calcium 9.8 (8.4-10.2) mg/dL Amylase 105 (30-110) U/L Lipase 86 (23-300) U/L Urine Color YELLOW (YELLOW) Urine Appearance CLEAR (CLEAR) Urine pH 5.0 (5-6) Ur Specific [place] 1.030 (1.005-1.025) Urine Protein 30 (Negative) Urine Ketones NEGATIVE (NEGATIVE) Urine Blood SMALL (0-5) Denis/ul Urine Nitrite NEGATIVE (NEGATIVE) Urine Bilirubin NEGATIVE (NEGATIVE) Urine Urobilinogen NEGATIVE (0-1) mg/dL Ur Leukocyte Esterase TRACE (NEGATIVE) Urine WBC (Auto) 0-2 (0-5) /HPF Urine RBC (Auto) NONE (0-2) /HPF U Epithel Cells (Auto) RARE (FEW) /HPF Urine Bacteria (Auto) NONE (NEGATIVE) /HPF Urine Mucus (Auto) SLIGHT (NEGATIVE) /HPF Urine Culture Reflexed NO (NO) Urine Glucose NEGATIVE (NEGATIVE) mg/dL Influenza Type A Ag NEGATIVE (NEGATIVE) Influenza Type B Ag NEGATIVE (NEGATIVE) RSV (PCR) NEGATIVE (Negative) 09/26/18 Range/Units 14:30 WBC 3.7 L (4.0-10.5) K/mm3 RBC 3.91 L (4.1-5.4) M/mm3 Hgb 12.5 (12.0-16.0) gm/dl Hct 39.0 (35-47) % MCV 99.7 (78-100) fl MCH 31.9 (26-32) pg MCHC 32.1 (32-36) g/dl RDW 14.4 H (11.5-14.0) % Plt Count 176 (150-450) K/mm3 MPV 11.1 H (6-9.5) fl Gran % 53.5 (36.0-66.0) % Eos # (Auto) 0.06 (0-0.5) Absolute Lymphs (auto) 1.35 (1.0-4.6) Absolute Monos (auto) 0.30 (0.0-1.3) Lymphocytes % 36.5 (24.0-44.0) % Monocytes % 8.1 (0.0-12.0) % Eosinophils % 1.6 (0.00-5.0) % Basophils % 0.3 (0.0-0.4) % Absolute Granulocytes 1.98 (1.4-6.9) Basophils # 0.01 (0-0.4) Sodium (137-145) mmol/L Potassium (3.5-5.1) mmol/L Chloride (98-107) mmol/L Carbon Dioxide (22-30) mmol/L Anion Gap (5-15) MEQ/L BUN (7-17) mg/dL Creatinine (0.52-1.04) mg/dL Estimated GFR ML/MIN Glucose (74-106) mg/dL Calcium (8.4-10.2) mg/dL Amylase (30-110) U/L Lipase (23-300) U/L Urine Color (YELLOW) Urine Appearance (CLEAR) Urine pH (5-6) Ur Specific [place] (1.005-1.025) Urine Protein (Negative) Urine Ketones (NEGATIVE) Urine Blood (0-5) Denis/ul Urine Nitrite (NEGATIVE) Urine Bilirubin (NEGATIVE) Urine Urobilinogen (0-1) mg/dL Ur Leukocyte Esterase (NEGATIVE) Urine WBC (Auto) (0-5) /HPF Urine RBC (Auto) (0-2) /HPF U Epithel Cells (Auto) (FEW) /HPF Urine Bacteria (Auto) (NEGATIVE) /HPF Urine Mucus (Auto) (NEGATIVE) /HPF Urine Culture Reflexed (NO) Urine Glucose (NEGATIVE) mg/dL Influenza Type A Ag (NEGATIVE) Influenza Type B Ag (NEGATIVE) RSV (PCR) (Negative) - Progress Progress: improved, re-examined Progress Note: 09/26/18 16:48 KUB-no acute process; no free air Counseled pt/family regarding: lab results, diagnosis, need for follow-up, rad results - Departure Time of Disposition: 16:48 Departure Disposition: Home Clinical Impression: Vomiting and diarrhea Condition: Stable Critical Care Time: No Referrals: ALLISON ARECHIGA MD [Primary Care Provider] - Additional Instructions: drink plenty of fluids. follow up with dr. arechiga for further management Prescriptions: Ondansetron HCl [Zofran] 4 mg PO TID PRN #10 tablet PRN Reason: Nausea/Vomiting
[2018-09-26] MEDS ORDERED: Sodium Chloride 0.9% 1000 ML 1,000 ML ONE (14:57)
[2018-09-26] MEDS ORDERED: Zofran 4 MG/2 ML VIAL ONE (14:57)
[2018-09-26 15:04] LABS: BASOPHIL % 0.3 % (0.0-0.4); Basophil (Absolute #) 0.01 (0-0.4); Eosinophil % 1.6 % (0.00-5.0); Eosinophil (Absolute #) 0.06 (0-0.5); Granulocyte Absolute (ANC) 1.98 (1.4-6.9); Granulocytes % 53.5 % (36.0-66.0); Hemoglobin 12.5 gm/dl (12.0-16.0); Lymphocyte (Absolute #) 1.35 (1.0-4.6); Lymphocytes % 36.5 % (24.0-44.0); Mean Cell Volume 99.7 fl (78-100); Mean Corpuscular Hgb Concent. 32.1 g/dl (32-36); Mean Platelet Volume 11.1 fl (6-9.5); Monocytes % 8.1 % (0.0-12.0); Platelet Count 176 K/mm3 (150-450); Red Blood Count 3.91 M/mm3 (4.1-5.4); Red Cell Distribution Width 14.4 % (11.5-14.0); White Blood Count 3.7 K/mm3 (4.0-10.5)
[2018-09-26 15:11] LABS: Mean Corpuscular Hemoglobin 31.9 pg (26-32)
[2018-09-26 15:20] LABS: AMYLASE 105 U/L (30-110); ANION GAP 14.8 MEQ/L (5-15); BLOOD UREA NITROGEN 17 mg/dL (7-17); CHLORIDE 108 mmol/L (98-107); Calcium 9.8 mg/dL (8.4-10.2); Carbon Dioxide 20 mmol/L (22-30); Creatinine 1 0.86 mg/dL (0.52-1.04); Glucose 82 mg/dL (74-106); LIPASE 86 U/L (23-300); Potassium 3.8 mmol/L (3.5-5.1); SODIUM 139 mmol/L (137-145)
[2018-09-26 15:31] LABS: INFLUENZA A NEGATIVE (NEGATIVE); INFLUENZA B NEGATIVE (NEGATIVE); RESPIRATORY SYNCTIAL VIRUS NEGATIVE (Negative)
[2018-09-26 16:37] LABS: Appearance CLEAR (CLEAR); Bilirubin NEGATIVE (NEGATIVE); Blood SMALL Ery/ul (0-5); Epithelial Cells RARE /HPF (FEW); Glucose NEGATIVE (NEGATIVE); Ketones NEGATIVE (NEGATIVE); Leukocyte Esterase TRACE (NEGATIVE); Mucus SLIGHT /HPF (NEGATIVE); Nitrite NEGATIVE (NEGATIVE); Protein,Urine Dip 30 (Negative); Urobilinogen NEGATIVE mg/dL (0-1); WBC 0-2 /HPF (0-5)
[2018-09-26 17:09] VITALS: BP 113/78
[2018-09-26 17:15] VITALS: PULSE 76; O2SAT 98
--- NOTE | 2018-09-26 19:08 | XRAY ---
Indication: Nausea, vomiting, diarrhea. Recent endoscopy. Comparison: None KUB demonstrates mild air distended colon presumed related to recent endoscopy. No focal bowel dilatation, obstruction, or large free air. Solid organs unremarkable. Osseous structures intact with minimal levoscoliosis. Lung bases clear. Impression: Negative KUB.
== END 2018-09-26 17:15 | disposition home or self-care (01) ==
LOC: ED 13:50
DX: R11.2 Nausea with vomiting, unspecified (principal); R19.7 Diarrhea, unspecified; M79.10 Myalgia, unspecified site; M25.50 Pain in unspecified joint; Z79.899 Other long term (current) drug therapy
CPT/HCPCS: 36000; 36415; 74018; 80048; 81001; 82150; 83690; 85025; 87631; 96360; 96374; 96375; 99284; J2405

== ENCOUNTER 2019-06-13 06:42 | Observation (INO) | payer OTHER ==
[2019-06-13] MEDS ORDERED: Sodium Chloride 0.9% 1000 ML 1,000 ML IV STA ×2 (07:03→07:24)
[2019-06-13] MEDS ORDERED: BENADRYL 50 MG/ML IV ONE (07:03)
[2019-06-13] MEDS ORDERED: Pepcid 20 MG VIAL IV ONE ×2 (07:03→07:11)
[2019-06-13] MEDS ORDERED: MORPHINE SULFATE 4 MG INJ IV ONE ×3 (07:03→10:21)
[2019-06-13] MEDS ORDERED: MORPHINE SULFATE 4 MG INJ ONE ×3 (07:11→10:55)
[2019-06-13] MEDS ORDERED: BENADRYL 50 MG/ML ONE (07:11)
[2019-06-13] MEDS ORDERED: Sodium Chloride 0.9% 1000 ML 1,000 ML ONE ×2 (07:12→08:27)
--- NOTE | 2019-06-13 07:12 | ERPHSYRPT ---
- History of Present Illness Time Seen by Provider: 06/13/19 07:00 Historian: patient Exam Limitations: no limitations Patient Subjective Stated Complaint: patient has been having severe side and flank pain radiating into the back, as well as vomitting for 3 days Triage Nursing Assessment: patient is alert nad orietnedx3, ablet o ambualte by self, gait is steady, guarding of left side, tender to palpation on back, bowel sounds present x4, skin warm dry and intact, lung sounds clear, oral mucosa dry and Physician History: Patient began having pain in the left lower back 2 days ago and began having vomiting since. Patient was in [place] at the time her symptoms began and she has not had any evaluation and treatment until today's emergency department visit. Timing/Duration: day(s) (2) Activities at Onset: none Quality: aching, stabbing Abdominal Pain Onset Location: flank (left lower, and low back pain) Pain Radiation: LLQ Severity of Pain-Max: severe Severity of Pain-Current: severe Modifying Factors: Improves With: nothing Associated Symptoms: back, nausea, vomiting, No chest pain, No diaphoresis, No diarrhea, No fever/chills, No fatigue, No heartburn, No loss of appetite, No neck pain, No rash, No shortness of breath, No syncope, No weakness Previous symptoms: same symptoms as today (patient has a history of kidney stones), no recent treatment Allergies/Adverse Reactions: meperidine [From Demerol] Allergy (Mild, Verified 09/26/18 14:13) nauseated and diarrhea sulfamethoxazole [From Bactrim] Adverse Reaction (Severe, Verified 09/26/18 14: 13) Nausea and Vomiting MADE HER VERY SICK trimethoprim [From Bactrim] Adverse Reaction (Severe, Verified 09/26/18 14:13) Nausea and Vomiting MADE HER VERY SICK Home Medications: Escitalopram Oxalate [Lexapro] 20 mg PO DAILY 07/06/14 [History] Rosuvastatin Calcium [Crestor] 20 mg PO DAILY 03/18/17 [History] Alprazolam 0.25 mg [xanAX 0.25 MG] 0.25 mg PO BID 09/16/18 [History] Dicyclomine HCl 10 mg PO TID 09/16/18 [History] Loperamide HCl 2 mg [Imodium 2 mg] 2 mg PO TID 09/16/18 [History] Biotin 1,000 mcg PO DAILY 09/24/18 [History] Potassium Chloride 10 Meq Tab* [Klor Con 10 MEQ] 10 meq PO BID 09/24/18 [ History] Hx Tetanus, Diphtheria Vaccination/Date Given: Yes Hx Influenza Vaccination/Date Given: No Hx Pneumococcal Vaccination/Date Given: No Immunizations Up to Date: Yes - Review of Systems Constitutional: No Fever, No Chills, No Fatigue Eyes: No Eye Pain, No Vision Changes Ears, Nose, & Throat: No Mouth Swelling, No Throat Swelling, No Painful Swallowing Respiratory: No Cough, No Dyspnea Cardiac: No Chest Pain, No Palpitations, No Syncope Abdominal/Gastrointestinal: Abdominal Pain, Nausea, Vomiting, No Hematemesis, No Hematochezia, No Melena Genitourinary Symptoms: Flank Pain, No Dysuria, No Frequency, No Hematuria, No Urgency, No Urinary Retention Musculoskeletal: Back Pain, No Neck Pain, No Joint Redness, No Joint Swelling Skin: No Pruritis, No Rash Neurological: No Focal Weakness, No Lethargy, No Speech Changes, No Tremors Endocrine: No Polydipsia Hematologic/Lymphatic: No Easy Bleeding, No Easy Bruising All Other Systems: Reviewed and Negative - Past Medical History Pertinent Past Medical History: Yes Neurological History: No Pertinent History ENT History: No Pertinent History Cardiac History: High Cholesterol Respiratory History: No Pertinent History Endocrine Medical History: No Pertinent History Musculoskeletal History: No Pertinent History GI Medical History: No Pertinent History History: Other Psycho-Social History: Depression, Eating Disorders Female Reproductive Disorders: No Pertinent History Other Medical History: bladder infections, kidney stones October 2016,anorexia. recent diarrhea - Past Surgical History Past Surgical History: Yes Neuro Surgical History: No Pertinent History Cardiac: No Pertinent History Respiratory: No Pertinent History Gastrointestinal: Appendectomy Genitourinary: No Pertinent History Musculoskeletal: No Pertinent History Female Surgical History: Dilation & Curettage Other Surgical History: right breast biopsy-benign - Social History Smoking Status: Current every day smoker How long have you smoked: 44 yrs Exposure to second hand smoke: Yes Drug Use: none Patient Lives Alone: No - Female History Hx Now: No - Nursing Vital Signs Nursing Vital Signs: Initial Vital Signs Temperature 98.3 F 06/13/19 06:43 Pulse Rate 91 H 06/13/19 06:43 Respiratory Rate 18 06/13/19 06:43 Blood Pressure 110/88 06/13/19 06:43 O2 Sat by Pulse Oximetry 98 06/13/19 06:43 Pain Scale Pain Intensity 2 - Physical Exam General Appearance: no apparent distress Eye Exam: PERRL/EOMI, eyes nml inspection, No scleral icterus, No photophobia Ears, Nose, Throat Exam: pharynx normal, moist mucous membranes Neck Exam: normal inspection, non-tender, supple, full range of motion, No meningismus, No mass, No Brudzinski Respiratory Exam: normal breath sounds, lungs clear, airway intact, No chest tenderness, No respiratory distress, No crackles/rales, No rhonchi, No wheezing , No stridor Cardiovascular Exam: regular rate/rhythm, normal heart sounds, normal peripheral pulses, capillary refill <2 sec Gastrointestinal/Abdomen Exam: soft, normal bowel sounds, tenderness (LLQ), No distention, No mass, No guarding, No rebound, No hernia Back Exam: normal inspection, normal range of motion, No CVA tenderness, No vertebral tenderness, No rash Extremity Exam: normal inspection, normal range of motion, pelvis stable, No calf tenderness, No pedal edema, No swelling Neurologic Exam: alert, oriented x 3, cooperative, staff sonographer II-XII nml as tested, normal mood/affect, sensation nml, No nml cerebellar function Skin Exam: normal color, warm, dry, No rash, No petechiae, No cyanosis SpO2 Interpretation: normal SpO2: 98 O2 Delivery: Room Air - Course Nursing assessment & vital signs reviewed: Yes - CT Exams Abdomen/Pelvis CT Interpretation: Tele-radiologist Report, Other (radiologist's interpretation : Liver, gallbladder and bile ducts, pancreas, spleen, adrenal, stomach and bowel, appendix, and peritoneal space, vasogenic, lymph nodes, bladder, reproductive, soft tissues: Unremarkable and within normal limits as patient is status post appendectomy with no signs of any liver masses, calcified gallbladder stones or ductal dilatation or splenomegaly with no signs of traction. Bones/joints: Show mild narrowing of L3-L4 disc space. Kidneys and ureters: Punctate calcifications in the upper pole the right kidney. Mild/ moderate left hydronephrosis due to 8 mm calculus within the proximal left ureter. Overall impression: Mild/moderate left hydronephrosis due to 8 mm calculus within the proximal left ureter.) Ordered Tests: Active Orders 24 hr Category Date Time Status IV Insertion STAT Care 06/13/19 07:03 Active NPO (ED) STAT Care 06/13/19 07:03 Active ABDOMEN AND PELVIS W/0 CONTRAS [CT] Stat Exams 06/13/19 07:41 Taken BMP Stat Lab 06/13/19 09:31 Completed CBC W DIFF Stat Lab 06/13/19 07:00 Completed CMP Stat Lab 06/13/19 07:00 Completed CULTURE,URINE Stat Lab 06/13/19 07:20 Received LIPASE Stat Lab 06/13/19 07:00 Completed Lactic Acid Stat Lab 06/13/19 07:05 Completed Lactic Acid Stat Lab 06/13/19 10:00 Completed MAGNESIUM Stat Lab 06/13/19 07:00 Completed UA W/RFX UR CULTURE Stat Lab 06/13/19 07:20 Completed VENOUS BLOOD GAS Stat Lab 06/13/19 10:09 Completed Medication Summary Generic Name Dose Route Start Last Admin Trade Name Freq PRN Reason Stop Dose Admin Tamsulosin HCl 0.4 mg 06/13/19 08:23 06/13/19 08:29 Flomax 0.4 Mg PO 07/13/19 08:22 0.4 mg DAILY WILLIAN Administration Discontinued Medications Generic Name Dose Route Start Last Admin Trade Name Freq PRN Reason Stop Dose Admin Diphenhydramine HCl 25 mg 06/13/19 07:03 06/13/19 07:14 Benadryl 50 Mg/Ml IV 06/13/19 07:04 25 mg STAT ONE Administration Diphenhydramine HCl Confirm 06/13/19 07:11 Benadryl 50 Mg/Ml Administered 06/13/19 07:12 Dose 50 mg .ROUTE .STK-MED ONE Famotidine 20 mg 06/13/19 07:03 06/13/19 07:14 Pepcid 20 Mg Vial IV 06/13/19 07:04 20 mg STAT ONE Administration Famotidine Confirm 06/13/19 07:11 Pepcid 20 Mg Vial Administered 06/13/19 07:12 Dose 20 mg IV .STK-MED ONE Sodium Chloride 1,000 mls @ 999 mls/hr 06/13/19 07:03 06/13/19 08:32 Sodium Chloride 0.9% 1000 Ml IV 06/13/19 08:03 Infused .Q1H1M STA Infusion Sodium Chloride Confirm 06/13/19 07:12 Sodium Chloride 0.9% 1000 Ml Administered 06/13/19 07:13 Dose 1,000 mls @ ud .ROUTE .STK-MED ONE Sodium Chloride 1,000 mls @ 999 mls/hr 06/13/19 07:24 06/13/19 09:43 Sodium Chloride 0.9% 1000 Ml IV 06/13/19 08:24 Infused .Q1H1M STA Infusion Sodium Chloride Confirm 06/13/19 08:27 Sodium Chloride 0.9% 1000 Ml Administered 06/13/19 08:28 Dose 1,000 mls @ ud .ROUTE .STK-MED ONE Morphine Sulfate 4 mg 06/13/19 07:03 06/13/19 07:14 Morphine Sulfate 4 Mg Inj IV 06/13/19 07:04 4 mg STAT ONE Administration Morphine Sulfate Confirm 06/13/19 07:11 Morphine Sulfate 4 Mg Inj Administered 06/13/19 07:12 Dose 4 mg .ROUTE .STK-MED ONE Morphine Sulfate 4 mg 06/13/19 08:55 06/13/19 08:58 Morphine Sulfate 4 Mg Inj IV 06/13/19 08:56 4 mg STAT ONE Administration Morphine Sulfate Confirm 06/13/19 08:56 Morphine Sulfate 4 Mg Inj Administered 06/13/19 08:57 Dose 4 mg .ROUTE .STK-MED ONE Morphine Sulfate 4 mg 06/13/19 10:21 06/13/19 10:55 Morphine Sulfate 4 Mg Inj IV 06/13/19 10:22 4 mg STAT ONE Administration Morphine Sulfate Confirm 06/13/19 10:55 Morphine Sulfate 4 Mg Inj Administered 06/13/19 10:56 Dose 4 mg .ROUTE .STK-MED ONE Potassium Chloride 40 meq 06/13/19 08:09 06/13/19 08:29 Klor Con 10 Meq PO 06/13/19 08:10 40 meq STAT ONE Administration Potassium Chloride Confirm 06/13/19 08:29 Klor Con 10 Meq Administered 06/13/19 08:30 Dose 40 meq PO .STK-MED ONE Lab/Rad Data: Laboratory Result Diagrams 06/13/19 07:00 06/13/19 09:31 Laboratory Results 06/13/19 06/13/19 06/13/19 Range/Units 10:09 10:00 09:31 WBC (4.0-10.5) K/mm3 RBC (4.1-5.4) M/mm3 Hgb (12.0-16.0) gm/dl Hct (35-47) % MCV (78-100) fl MCH (26-32) pg MCHC (32-36) g/dl RDW (11.5-14.0) % Plt Count (150-450) K/mm3 MPV (6-9.5) fl Gran % (36.0-66.0) % Eos # (Auto) (0-0.5) Absolute Lymphs (auto) (1.0-4.6) Absolute Monos (auto) (0.0-1.3) Lymphocytes % (24.0-44.0) % Monocytes % (0.0-12.0) % Eosinophils % (0.00-5.0) % Basophils % (0.0-0.4) % Absolute Granulocytes (1.4-6.9) Basophils # (0-0.4) pO2/FiO2 Ratio 21.0 % VBG pH 7.29 L (7.32-7.42) VBG pCO2 at Pat Temp 48 (42-55) mm/Hg VBG pO2 at Pat Temp 31 (25-40) mm/Hg VBG HCO3 23.1 (22-28) meq/L VBG O2 Sat (Garry) 56.4 L (95-100) VBG Base Excess -3.6 L (-2.0-2.0) VBG Hemoglobin 11.3 VBG Carboxyhemoglobin 3.2 (0.0-6.9) % T HGB POC Potassium 3.5 (3.5-5.1) Sodium 144 (137-145) mmol/L Potassium 3.5 (3.5-5.1) mmol/L Chloride 114 H (98-107) mmol/L Carbon Dioxide 21 L (22-30) mmol/L Anion Gap 13.3 (5-15) MEQ/L BUN 20 H (7-17) mg/dL Creatinine 1.29 H (0.52-1.04) mg/dL Estimated GFR 44.7 ML/MIN Glucose 92 (74-106) mg/dL Lactic Acid 1.0 (0.4-2.0) Calcium 8.5 (8.4-10.2) mg/dL Magnesium (1.6-2.3) mg/dL Total Bilirubin (0.2-1.3) mg/dL AST (14-36) U/L ALT (0-35) U/L Alkaline Phosphatase (38-126) U/L Serum Total Protein (6.3-8.2) g/dL Albumin (3.5-5.0) g/dL Lipase (23-300) U/L Urine Color (YELLOW) Urine Appearance (CLEAR) Urine pH (5-6) Ur Specific Tulia (1.005-1.025) Urine Protein (Negative) Urine Ketones (NEGATIVE) Urine Blood (0-5) Denis/ul Urine Nitrite (NEGATIVE) Urine Bilirubin (NEGATIVE) Urine Urobilinogen (0-1) mg/dL Ur Leukocyte Esterase (NEGATIVE) Urine WBC (Auto) (0-5) /HPF Urine RBC (Auto) (0-2) /HPF U Epithel Cells (Auto) (FEW) /HPF Urine Bacteria (Auto) (NEGATIVE) /HPF Urine Mucus (Auto) (NEGATIVE) /HPF Urine Culture Reflexed (NO) Urine Glucose (NEGATIVE) mg/dL 06/13/19 06/13/19 06/13/19 Range/Units 07:20 07:05 07:00 WBC (4.0-10.5) K/mm3 RBC (4.1-5.4) M/mm3 Hgb (12.0-16.0) gm/dl Hct (35-47) % MCV (78-100) fl MCH (26-32) pg MCHC (32-36) g/dl RDW (11.5-14.0) % Plt Count (150-450) K/mm3 MPV (6-9.5) fl Gran % (36.0-66.0) % Eos # (Auto) (0-0.5) Absolute Lymphs (auto) (1.0-4.6) Absolute Monos (auto) (0.0-1.3) Lymphocytes % (24.0-44.0) % Monocytes % (0.0-12.0) % Eosinophils % (0.00-5.0) % Basophils % (0.0-0.4) % Absolute Granulocytes (1.4-6.9) Basophils # (0-0.4) pO2/FiO2 Ratio % VBG pH (7.32-7.42) VBG pCO2 at Pat Temp (42-55) mm/Hg VBG pO2 at Pat Temp (25-40) mm/Hg VBG HCO3 (22-28) meq/L VBG O2 Sat (Garry) (95-100) VBG Base Excess (-2.0-2.0) VBG Hemoglobin VBG Carboxyhemoglobin (0.0-6.9) % T HGB POC Potassium (3.5-5.1) Sodium 142 (137-145) mmol/L Potassium 3.3 L (3.5-5.1) mmol/L Chloride 110 H (98-107) mmol/L Carbon Dioxide 19 L (22-30) mmol/L Anion Gap 16.6 H (5-15) MEQ/L BUN 21 H (7-17) mg/dL Creatinine 1.41 H (0.52-1.04) mg/dL Estimated GFR 40.3 ML/MIN Glucose 171 H (74-106) mg/dL Lactic Acid 3.1 H (0.4-2.0) Calcium 9.7 (8.4-10.2) mg/dL Magnesium 1.8 (1.6-2.3) mg/dL Total Bilirubin 0.50 (0.2-1.3) mg/dL AST 29 (14-36) U/L ALT 23 (0-35) U/L Alkaline Phosphatase 85 (38-126) U/L Serum Total Protein 8.4 H (6.3-8.2) g/dL Albumin 4.2 (3.5-5.0) g/dL Lipase 66 (23-300) U/L Urine Color YELLOW (YELLOW) Urine Appearance SLIGHTLY CLOUDY (CLEAR) Urine pH 5.0 (5-6) Ur Specific Tulia 1.030 (1.005-1.025) Urine Protein 30 (Negative) Urine Ketones TRACE (NEGATIVE) Urine Blood MODERATE (0-5) Denis/ul Urine Nitrite NEGATIVE (NEGATIVE) Urine Bilirubin NEGATIVE (NEGATIVE) Urine Urobilinogen NEGATIVE (0-1) mg/dL Ur Leukocyte Esterase LARGE (NEGATIVE) Urine WBC (Auto) >100 (0-5) /HPF Urine RBC (Auto) 26-50 (0-2) /HPF U Epithel Cells (Auto) RARE (FEW) /HPF Urine Bacteria (Auto) FEW (NEGATIVE) /HPF Urine Mucus (Auto) SLIGHT (NEGATIVE) /HPF Urine Culture Reflexed YES (NO) Urine Glucose NEGATIVE (NEGATIVE) mg/dL 06/13/19 Range/Units 07:00 WBC 5.6 (4.0-10.5) K/mm3 RBC 3.82 L (4.1-5.4) M/mm3 Hgb 12.5 (12.0-16.0) gm/dl Hct 37.8 (35-47) % MCV 99.0 (78-100) fl MCH 32.7 H (26-32) pg MCHC 33.1 (32-36) g/dl RDW 14.1 H (11.5-14.0) % Plt Count 161 (150-450) K/mm3 MPV 10.7 H (6-9.5) fl Gran % 73.3 H (36.0-66.0) % Eos # (Auto) 0.01 (0-0.5) Absolute Lymphs (auto) 1.21 (1.0-4.6) Absolute Monos (auto) 0.27 (0.0-1.3) Lymphocytes % 21.7 L (24.0-44.0) % Monocytes % 4.8 (0.0-12.0) % Eosinophils % 0.2 (0.00-5.0) % Basophils % 0.0 (0.0-0.4) % Absolute Granulocytes 4.09 (1.4-6.9) Basophils # 0 (0-0.4) pO2/FiO2 Ratio % VBG pH (7.32-7.42) VBG pCO2 at Pat Temp (42-55) mm/Hg VBG pO2 at Pat Temp (25-40) mm/Hg VBG HCO3 (22-28) meq/L VBG O2 Sat (Garry) (95-100) VBG Base Excess (-2.0-2.0) VBG Hemoglobin VBG Carboxyhemoglobin (0.0-6.9) % T HGB POC Potassium (3.5-5.1) Sodium (137-145) mmol/L Potassium (3.5-5.1) mmol/L Chloride (98-107) mmol/L Carbon Dioxide (22-30) mmol/L Anion Gap (5-15) MEQ/L BUN (7-17) mg/dL Creatinine (0.52-1.04) mg/dL Estimated GFR ML/MIN Glucose (74-106) mg/dL Lactic Acid (0.4-2.0) Calcium (8.4-10.2) mg/dL Magnesium (1.6-2.3) mg/dL Total Bilirubin (0.2-1.3) mg/dL AST (14-36) U/L ALT (0-35) U/L Alkaline Phosphatase (38-126) U/L Serum Total Protein (6.3-8.2) g/dL Albumin (3.5-5.0) g/dL Lipase (23-300) U/L Urine Color (YELLOW) Urine Appearance (CLEAR) Urine pH (5-6) Ur Specific Tulia (1.005-1.025) Urine Protein (Negative) Urine Ketones (NEGATIVE) Urine Blood (0-5) Denis/ul Urine Nitrite (NEGATIVE) Urine Bilirubin (NEGATIVE) Urine Urobilinogen (0-1) mg/dL Ur Leukocyte Esterase (NEGATIVE) Urine WBC (Auto) (0-5) /HPF Urine RBC (Auto) (0-2) /HPF U Epithel Cells (Auto) (FEW) /HPF Urine Bacteria (Auto) (NEGATIVE) /HPF Urine Mucus (Auto) (NEGATIVE) /HPF Urine Culture Reflexed (NO) Urine Glucose (NEGATIVE) mg/dL - Progress Progress: improved Progress Note: 06/13/19 08:10 Patient feels much better with resolution of pain, nausea and vomiting with IV medication. Will recheck labs after IV hydration. 06/13/19 08:55 Patient's pain has returned. Patient was given Morphine 4mg IV times one 06/13/19 10:22 Pain did improve, but is returning. Creatinine and lactic acid have improved after IV hydration, but patient has a mild metabolic acidosis. 06/13/19 10:50 Spoke with [facility]. They will call back with the Urologist filteration operator. 06/13/19 10:[address] Mckeon, Urologist at [facility]. Dr Mckeon states that no immediate intervention needs to be performed at this time, but it will be difficult for the patient to pass the 8mm stone, so continued pain and nausea management with hydration can be performed here. If patient does not improve in the near future or worsens at any time, patient may be transferred to [facility] at any time for further evaluation and management with consultation to Urology. 06/13/19 11:[address] Moran, [facility]ist at [facility] and notified of Dr Mckeon recommendations. Dr Moran accepted the patient for observation to [facility]. Discussed with .: Cherie (@10:42, discussed the case with Dr Moran, Hospitalist at [facility]. Dr Moran will accept patient for admission for pain control, hydration and recheck labs if Urology will not do any specific intervention in the near future) Will see patient in: hospital (observation) Counseled pt/family regarding: lab results, diagnosis, need for follow-up, rad results - Departure Departure Disposition: Observation ([facility] with telemetry) Clinical Impression: Renal colic on left side, Hypokalemia, Dehydration, Nausea and vomiting in adult patient, Ureterolithiasis, Right nephrolithiasis, Acute renal insufficiency, Obstructive uropathy Condition: Fair Critical Care Time: No Referrals: ALLISON REEDER MD [Primary Care Provider] -
[2019-06-13 07:15] LABS: Absolute Neutrophil Ct (ANC) 4.09 (1.4-6.9); Basophil (Absolute #) 0 (0-0.4); Eosinophil % 0.2 % (0.00-5.0); Eosinophil (Absolute #) 0.01 (0-0.5); Hematocrit 37.8 % (35-47); Hemoglobin 12.5 gm/dl (12.0-16.0); Lymphocyte (Absolute #) 1.21 (1.0-4.6); Lymphocytes % 21.7 % (24.0-44.0); Mean Corpuscular Hemoglobin 32.7 pg (26-32); Mean Corpuscular Hgb Concent. 33.1 g/dl (32-36); Mean Platelet Volume 10.7 fl (6-9.5); Monocyte (Absolute #) 0.27 (0.0-1.3); Monocytes % 4.8 % (0.0-12.0); Neutrophil % 73.3 % (36.0-66.0); Platelet Count 161 K/mm3 (150-450); Red Blood Count 3.82 M/mm3 (4.1-5.4); Red Cell Distribution Width 14.1 % (11.5-14.0); White Blood Count 5.6 K/mm3 (4.0-10.5)
[2019-06-13 07:18] LABS: Lactic Acid 3.1 (0.4-2.0)
[2019-06-13 07:35] LABS: ALBUMIN 4.2 g/dL (3.5-5.0); ANION GAP 16.6 MEQ/L (5-15); BILIRUBIN,TOTAL 0.5 mg/dL (0.2-1.3); Calcium 9.7 mg/dL (8.4-10.2); Creatinine 1 1.41 mg/dL (0.52-1.04); MAGNESIUM 1.8 mg/dL (1.6-2.3); Potassium 3.3 mmol/L (3.5-5.1); Total Protein 8.4 g/dL (6.3-8.2)
[2019-06-13 07:51] LABS: Appearance SLIGHTLY CLOUDY (CLEAR); Bacteria FEW /HPF (NEGATIVE); Bilirubin NEGATIVE (NEGATIVE); Blood MODERATE Ery/ul (0-5); Epithelial Cells RARE /HPF (FEW); Glucose NEGATIVE (NEGATIVE); Ketones TRACE (NEGATIVE); Leukocyte Esterase LARGE (NEGATIVE); Mucus SLIGHT /HPF (NEGATIVE); Nitrite NEGATIVE (NEGATIVE); Protein,Urine Dip 30 (Negative); RBC 26-50 /HPF (0-2); Urobilinogen NEGATIVE mg/dL (0-1); WBC >100 /HPF (0-5)
[2019-06-13] MEDS ORDERED: Klor Con 10 MEQ PO ONE ×2 (08:09→08:29)
[2019-06-13] MEDS ORDERED: Flomax 0.4 MG PO SCH (08:23)
[2019-06-13] MEDS ORDERED: Flomax 0.4 MG ONE (08:29)
[2019-06-13 09:57] LABS: ANION GAP 13.3 MEQ/L (5-15); Calcium 8.5 mg/dL (8.4-10.2); Creatinine 1 1.29 mg/dL (0.52-1.04); Potassium 3.5 mmol/L (3.5-5.1)
[2019-06-13 10:18] LABS: VBG BASE EXCESS -3.6 (-2.0-2.0); VBG CARBOXYHEMOGLOBIN 3.2 % T HGB (0.0-6.9); VBG HCO3- 23.1 meq/L (22-28); VBG HEMOGLOBIN 11.3; VBG O2 SATURATION 56.4 (95-100); VBG POTASSIUM 3.5 (3.5-5.1); VBG pH 7.29 (7.32-7.42)
[2019-06-13] MEDS ORDERED: TYLENOL 325 MG PO PRN (11:59)
[2019-06-13] MEDS ORDERED: MORPHINE SULFATE 4 MG INJ IV PRN (11:59)
[2019-06-13] MEDS ORDERED: BENADRYL 50 MG/ML IV PRN (11:59)
[2019-06-13] MEDS ORDERED: MORPHINE SULFATE 2 MG INJ IV ONE (12:43)
[2019-06-13] MEDS: TORAdol 30 mg Injection IV PRN (12:54)
[2019-06-13] MEDS ORDERED: NON-FORMULARY ITEM (Ondansetron Hcl [Zofran] 4 MG) PO PRN (14:24)
[2019-06-13] MEDS ORDERED: MEDICATION INTERVENTION MC SCH (15:00)
[2019-06-13] MEDS: Lexapro 10 MG PO SCH (15:47)
[2019-06-13] MEDS: Sodium Chloride 0.9% 1000 ML 1,000 ML IV SCH (19:37)
--- NOTE | 2019-06-13 19:55 | XRAY ---
Indication: Left abdomen pain. Nausea and vomiting. Multiple contiguous axial images obtained through the abdomen and pelvis without contrast. Comparison: March 10, 2017. Lung bases are essentially clear. Heart is not enlarged. Noncontrasted stomach and bowel loops appear nonobstructed. Previous appendectomy. There is a new 8mm proximal left ureter calculus, approximately L3 level. Proximal left ureter is prominent and there is mild/moderate hydronephrosis consistent with obstructive uropathy. No free fluid/air. Remaining liver, gallbladder, pancreas, spleen, adrenal glands,, right kidney, right ureter, bladder, and uterus appear unremarkable for noncontrast exam. Again mild aortoiliac calcifications without AAA. Osseous structures intact. Impression: 1. New 8 mm proximal left ureter calculus producing partial obstruction. 2. Remaining CT abdomen/pelvis without contrast exam is negative. Comment: Preliminary interpretation was made by [facility]. No discrepancy. CTDI 9.79
[2019-06-13] MEDS ORDERED: ZOCOR 20MG PO SCH (22:00)
[2019-06-13] MEDS ORDERED: NON-FORMULARY ITEM (Rosuvastatin Calcium [Crestor] 20 MG) PO SCH (22:00)
[2019-06-13] MEDS: Klor Con 10 MEQ PO SCH (22:15)
[2019-06-13] MEDS: xanAX 0.25 MG PO SCH (22:16)
[2019-06-13] MEDS: Pepcid 20 MG PO SCH (22:16)
[2019-06-14] MEDS: Sodium Chloride 0.9% 1000 ML 1,000 ML IV SCH ×3 (00:04→12:35)
[2019-06-14 05:40] LABS: ANION GAP 10.6 MEQ/L (5-15); Absolute Neutrophil Ct (ANC) 1.13 (1.4-6.9); Basophil (Absolute #) 0 (0-0.4); Calcium 8.4 mg/dL (8.4-10.2); Creatinine 1 1.27 mg/dL (0.52-1.04); Eosinophil % 0.4 % (0.00-5.0); Eosinophil (Absolute #) 0.01 (0-0.5); Hematocrit 31.2 % (35-47); Lymphocyte (Absolute #) 1.11 (1.0-4.6); Lymphocytes % 43.2 % (24.0-44.0); Mean Cell Volume 102.3 fl (78-100); Mean Corpuscular Hgb Concent. 32.1 g/dl (32-36); Mean Platelet Volume 10.7 fl (6-9.5); Monocyte (Absolute #) 0.32 (0.0-1.3); Monocytes % 12.5 % (0.0-12.0); Neutrophil % 43.9 % (36.0-66.0); Platelet Count 118 K/mm3 (150-450); Potassium 3.8 mmol/L (3.5-5.1); Red Blood Count 3.05 M/mm3 (4.1-5.4); Red Cell Distribution Width 14.2 % (11.5-14.0); White Blood Count 2.6 K/mm3 (4.0-10.5)
[2019-06-14 05:55] LABS: Mean Corpuscular Hemoglobin 32.7 pg (26-32)
--- NOTE | 2019-06-14 08:41 | PCM.HP ---
History of Present Illness - Chief Complaint Chief Complaint: Acute Renal Insufficiency, Renal Colic, Obstructive Uropathy History of Present Illness: is a 63 year old female who developed left flank pain and nausea and vomiting, no fever, no dysuria or hematuria. came to ER and found to have proximal left urtereal 8mm stone with partial obstruction, apparently urology advised admission to here for fluids and pain control/conservative treatment trial according to ER doctor note. - Review of Systems Constitutional: No Fever, No Chills Respiratory: No Cough, No Short Of Breath Cardiac: No Chest Pain, No Edema, No Syncope Abdominal/Gastrointestinal: No Abdominal Pain, No Nausea, No Vomiting, No Diarrhea All Other Systems: Reviewed and Negative Medications & Allergies Home Medications: Home Medication List Escitalopram Oxalate [Lexapro] 20 mg PO DAILY 07/06/14 [History Confirmed ] Rosuvastatin Calcium [Crestor] 20 mg PO HS 03/18/17 [History Confirmed 06/13/19] Alprazolam 0.25 mg [xanAX 0.25 MG] 0.25 mg PO BID 09/16/18 [History Confirmed 06/13/19] Biotin 1,000 mcg PO DAILY 09/24/18 [History Confirmed 06/13/19] Potassium Chloride 10 Meq Tab* [Klor Con 10 MEQ] 20 meq PO BID 09/24/18 [ History Confirmed 06/13/19] Ondansetron HCl [Zofran] 4 mg PO TID PRN #10 tablet 09/26/18 [Rx Confirmed 06/13] Allergies/Adverse Reactions: Allergies Allergy/AdvReac Type Severity Reaction Status Date / Time meperidine [From Demerol] Allergy Mild nauseated Verified 09/26/18 14:13 and diarrhea sulfamethoxazole AdvReac Severe Nausea and Verified 09/26/18 14:13 [From Bactrim] Vomiting trimethoprim [From Bactrim] AdvReac Severe Nausea and Verified 09/26/18 14:13 Vomiting - Past Medical History Past Medical History: Yes Neurological History: No Pertinent History ENT History: No Pertinent History Cardiac History: High Cholesterol Respiratory History: No Pertinent History Endocrine Medical History: No Pertinent History Musculoskelatal History: No Pertinent History GI Medical History: No Pertinent History History: Other Pyscho-Social History: Depression, Eating Disorders Reproductive Disorders: No Pertinent History Comment: bladder infections, kidney stones October 2016,anorexia. recent diarrhea - Female History Are you now?: No - Past Surgical History Past Surgical History: Yes Neuro Surgical History: No Pertinent History Cardiac History: No Pertinent History Respiratory Surgery: No Pertinent History GI Surgical History: Appendectomy Genitourinary Surgical Hx: No Pertinent History Musculskeletal Surgical Hx: No Pertinent History Female Surgical History: Dilation & Curettage Other Surgical History: right breast biopsy-benign - Social History Smoking Status: Current every day smoker How long have you smoked: 44 yrs Exposure to second hand smoke: Yes Alcohol: None Drug Use: none - Physical Exam Vital Signs: Vital Signs - 24 hr Temp Pulse Resp BP Pulse Ox 06/14/19 07:19 98.7 F 80 18 115/55 94 L 06/14/19 04:00 99.1 F 89 16 115/68 91 L 06/14/19 00:00 98.3 F 90 24 121/67 92 L 06/13/19 20:00 97.7 F 74 15 99/59 94 L 06/13/19 19:50 95 06/13/19 16:13 98.2 F 73 20 93/66 98 06/13/19 16:00 93 L 06/13/19 13:07 98.5 F 72 17 139/83 91 L 06/13/19 12:17 98.5 F 72 18 139/83 91 L 06/13/19 11:21 72 18 138/94 94 L 06/13/19 11:18 98 06/13/19 10:04 69 20 145/92 96 06/13/19 09:22 69 16 146/99 97 Oxygen-Last 24 hours O2 Percentage 3 Liters = 32% O2 Percentage 3 Liters = 32% O2 Percentage 3 Liters = 32% O2 Percentage 3 Liters = 32% General Appearance: no apparent distress, alert Respiratory Exam: normal breath sounds, lungs clear, No respiratory distress Cardiovascular Exam: regular rate/rhythm, normal heart sounds, normal peripheral pulses Gastrointestinal/Abdomen Exam: soft, normal bowel sounds, No tenderness, No mass Back Exam: CVA tenderness (left) Results - Labs Lab/Micro Results: Lab Results-Last 24 Hours 06/13/19 06/13/19 06/13/19 Range/Units 09:31 10:00 10:09 WBC (4.0-10.5) K/mm3 RBC (4.1-5.4) M/mm3 Hgb (12.0-16.0) gm/dl Hct (35-47) % MCV (78-100) fl MCH (26-32) pg MCHC (32-36) g/dl RDW (11.5-14.0) % Plt Count (150-450) K/mm3 MPV (6-9.5) fl Gran % (36.0-66.0) % Eos # (Auto) (0-0.5) Absolute Lymphs (auto) (1.0-4.6) Absolute Monos (auto) (0.0-1.3) Lymphocytes % (24.0-44.0) % Monocytes % (0.0-12.0) % Eosinophils % (0.00-5.0) % Basophils % (0.0-0.4) % Absolute Granulocytes (1.4-6.9) Basophils # (0-0.4) pO2/FiO2 Ratio 21.0 % VBG pH 7.29 L (7.32-7.42) VBG pCO2 at Pat Temp 48 (42-55) mm/Hg VBG pO2 at Pat Temp 31 (25-40) mm/Hg VBG HCO3 23.1 (22-28) meq/L VBG O2 Sat (Garry) 56.4 L (95-100) VBG Base Excess -3.6 L (-2.0-2.0) VBG Hemoglobin 11.3 VBG Carboxyhemoglobin 3.2 (0.0-6.9) % T HGB POC Potassium 3.5 (3.5-5.1) Sodium 144 (137-145) mmol/L Potassium 3.5 (3.5-5.1) mmol/L Chloride 114 H (98-107) mmol/L Carbon Dioxide 21 L (22-30) mmol/L Anion Gap 13.3 (5-15) MEQ/L BUN 20 H (7-17) mg/dL Creatinine 1.29 H (0.52-1.04) mg/dL Estimated GFR 44.7 ML/MIN Glucose 92 (74-106) mg/dL Lactic Acid 1.0 (0.4-2.0) Calcium 8.5 (8.4-10.2) mg/dL 10/28/19 10/28/19 Range/Units 04:45 04:45 WBC 2.6 L (4.0-10.5) K/mm3 RBC 3.05 L (4.1-5.4) M/mm3 Hgb 10.0 L (12.0-16.0) gm/dl Hct 31.2 L (35-47) % MCV 102.3 H (78-100) fl MCH 32.7 H (26-32) pg MCHC 32.1 (32-36) g/dl RDW 14.2 H (11.5-14.0) % Plt Count 118 L (150-450) K/mm3 MPV 10.7 H (6-9.5) fl Gran % 43.9 (36.0-66.0) % Eos # (Auto) 0.01 (0-0.5) Absolute Lymphs (auto) 1.11 (1.0-4.6) Absolute Monos (auto) 0.32 (0.0-1.3) Lymphocytes % 43.2 (24.0-44.0) % Monocytes % 12.5 H (0.0-12.0) % Eosinophils % 0.4 (0.00-5.0) % Basophils % 0.0 (0.0-0.4) % Absolute Granulocytes 1.13 L (1.4-6.9) Basophils # 0 (0-0.4) pO2/FiO2 Ratio % VBG pH (7.32-7.42) VBG pCO2 at Pat Temp (42-55) mm/Hg VBG pO2 at Pat Temp (25-40) mm/Hg VBG HCO3 (22-28) meq/L VBG O2 Sat (Agrry) (95-100) VBG Base Excess (-2.0-2.0) VBG Hemoglobin VBG Carboxyhemoglobin (0.0-6.9) % T HGB POC Potassium (3.5-5.1) Sodium 140 (137-145) mmol/L Potassium 3.8 (3.5-5.1) mmol/L Chloride 115 H (98-107) mmol/L Carbon Dioxide 19 L (22-30) mmol/L Anion Gap 10.6 (5-15) MEQ/L BUN 18 H (7-17) mg/dL Creatinine 1.27 H (0.52-1.04) mg/dL Estimated GFR 45.5 ML/MIN Glucose 94 (74-106) mg/dL Lactic Acid (0.4-2.0) Calcium 8.4 (8.4-10.2) mg/dL - Radiology Impressions Radiology Exams & Impressions: Radiology Procedures Category Date Time Status ABDOMEN AND PELVIS W/0 CONTRAS [CT] Stat Exams 06/13/19 07:41 Completed - Other Procedures and Tests Respiratory Therapy 06/13/19 13:44 Smoking Cessation Education ONCE 06/13/19 15:57 Oxygen Nasal Cannula 3 lpm Assessment/Plan (1) Ureterolithiasis Current Visit: Yes Status: Acute Assessment & Plan: patient is currently more comfortable, has required toradol and morphine for pain control, receiving IV fluids. (2) Dehydration Current Visit: Yes Status: Acute Code(s): E86.0 - DEHYDRATION
[2019-06-14] MEDS: TORAdol 30 mg Injection IV PRN ×2 (08:46→16:52)
[2019-06-14] MEDS: ZOFRAN ODT 4 MG PO PRN ×2 (08:46→16:50)
[2019-06-14] MEDS: xanAX 0.25 MG PO SCH (09:22)
[2019-06-14] MEDS: Klor Con 10 MEQ PO SCH (09:22)
[2019-06-14] MEDS: Lexapro 10 MG PO SCH (09:22)
[2019-06-14] MEDS: Pepcid 20 MG PO SCH (09:22)
[2019-06-14] MEDS ORDERED: ROCEPHIN 1 Gm-D5w 50 ml Bag** 1 G/50 ML IVPB IV SCH (10:00)
[2019-06-14] MEDS ORDERED: BIOTIN 1000 MCG PO SCH (10:00)
[2019-06-14] MEDS ORDERED: Flomax 0.4 MG PO SCH (10:00)
--- NOTE | 2019-06-14 16:26 | PCM.DS ---
Discharge Summary Date of Admission: 06/13/19 11:55 Admitting Physician: TRISTA CORADO MD Primary Care Provider: ALLISON REEDER UMAIR Allergies Allergies meperidine [From Demerol] Allergy (Mild, Verified 09/26/18 14:13) nauseated and diarrhea sulfamethoxazole [From Bactrim] Adverse Reaction (Severe, Verified 09/26/18 14: 13) Nausea and Vomiting MADE HER VERY SICK trimethoprim [From Bactrim] Adverse Reaction (Severe, Verified 09/26/18 14:13) Nausea and Vomiting MADE HER VERY SICK Hospital Summary - Hospital Course Hospital Course: patient was admitted with left flank pain, found to have 8mm proximal left ureteral stone with partial obstruction. she has required morphine and toradol consistently for pain control and has been unable to eat. Dr Mckeon was initially contacted from the ER and recommended a trial of conservative therapy and he could see her as an outpatient but advised if not improved or worsens could transfer for possible intervention. the patient and her both agree that she is doing worse this afternoon so will contact regional for transfer. - Vitals & Intake/Output Vital Signs: Vital Signs Temperature 98.4 F 06/14/19 15:13 Pulse Rate 80 06/14/19 12:23 Respiratory Rate 18 06/14/19 12:23 Blood Pressure 111/63 06/14/19 12:23 O2 Sat by Pulse Oximetry 95 06/14/19 12:23 Oxygen-Last Documented O2 Percentage 3 Liters = 32% Intake & Output: Intake & Output 06/12/19 06/13/19 06/14/19 06/15/19 11:59 11:59 11:59 11:59 Intake Total 3324 360 Output Total 550 Balance 3324 -190 Weight 52.163 kg 53.9 kg - Lab Result Diagrams: 06/14/19 04:45 06/14/19 04:45 Lab Results-Last 24 Hrs: Lab Results-Last 24 Hours 06/14/19 06/14/19 Range/Units 04:45 04:45 WBC 2.6 L (4.0-10.5) K/mm3 RBC 3.05 L (4.1-5.4) M/mm3 Hgb 10.0 L (12.0-16.0) gm/dl Hct 31.2 L (35-47) % MCV 102.3 H (78-100) fl MCH 32.7 H (26-32) pg MCHC 32.1 (32-36) g/dl RDW 14.2 H (11.5-14.0) % Plt Count 118 L (150-450) K/mm3 MPV 10.7 H (6-9.5) fl Gran % 43.9 (36.0-66.0) % Eos # (Auto) 0.01 (0-0.5) Absolute Lymphs (auto) 1.11 (1.0-4.6) Absolute Monos (auto) 0.32 (0.0-1.3) Lymphocytes % 43.2 (24.0-44.0) % Monocytes % 12.5 H (0.0-12.0) % Eosinophils % 0.4 (0.00-5.0) % Basophils % 0.0 (0.0-0.4) % Absolute Granulocytes 1.13 L (1.4-6.9) Basophils # 0 (0-0.4) Sodium 140 (137-145) mmol/L Potassium 3.8 (3.5-5.1) mmol/L Chloride 115 H (98-107) mmol/L Carbon Dioxide 19 L (22-30) mmol/L Anion Gap 10.6 (5-15) MEQ/L BUN 18 H (7-17) mg/dL Creatinine 1.27 H (0.52-1.04) mg/dL Estimated GFR 45.5 ML/MIN Glucose 94 (74-106) mg/dL Calcium 8.4 (8.4-10.2) mg/dL Micro Results-Entire Visit: Microbiology 06/13/19 07:20 Urine Culture - Preliminary Clean Catch Midstream <10K NORMAL SKIN NAYA PROBABLE SKIN CONTAMINANT - Radiology Exams Ordered Rad Exams-Entire Visit: Radiology Procedures Category Date Time Status ABDOMEN AND PELVIS W/0 CONTRAS [CT] Stat Exams 06/13/19 07:41 Completed - Procedures and Test Procedures and Tests throughout Hospitalization: Therapy Orders & Screens 06/13/19 13:44 Smoking Cessation Education ONCE Comment: Diagnosis: Acute Renal Insufficiency, Renal Colic, Obstructive Uropathy Smoking Status: Current every day smoker How long have you smoked: 44 yrs Have you smoked in the past 12 months: Yes Approximately how many cigarettes per day: 20 Do you dip or chew tobacco: No If,Former Smoker,when did you quit: 1 month ago 06/13/19 15:57 Oxygen Nasal Cannula 3 lpm Comment: Diagnosis: Acute Renal Insufficiency, Renal Colic, Obstructive Uropathy Discharge Exam General Appearance: mild distress, alert Neurologic Exam: alert, oriented x 3, cooperative, normal mood/affect, nml cerebellar function, sensation nml, No motor deficits Eye Exam: PERRL, EOMI, eyes nml inspection Respiratory Exam: normal breath sounds, lungs clear, No respiratory distress Cardiovascular Exam: regular rate/rhythm, normal heart sounds Gastrointestinal/Abdomen Exam: soft, No tenderness, No mass Back Exam: CVA tenderness (left) Extremity Exam: normal inspection, normal range of motion Final Diagnosis/Problem List - Final Discharge Diagnosis/Problem (1) Ureterolithiasis Current Visit: Yes Status: Acute Assessment & Plan: large 8mm stone in proximal ureter, failed conservative measures. spoke with Dr James and patient will be transferred for intervention tomorrow morning (2) UTI (urinary tract infection) Current Visit: Yes Status: Acute Assessment & Plan: on rocephin, culture pending Code(s): N39.0 - URINARY TRACT INFECTION, SITE NOT SPECIFIED (3) Dehydration Current Visit: Yes Status: Acute Code(s): E86.0 - DEHYDRATION - Discharge Disposition: DC TO [facility] Condition: Stable Prescriptions: No Action Escitalopram Oxalate [Lexapro] 20 mg PO DAILY Rosuvastatin Calcium [Crestor] 20 mg PO HS Alprazolam 0.25 mg [xanAX 0.25 MG] 0.25 mg PO BID Potassium Chloride 10 Meq Tab* [Klor Con 10 MEQ] 20 meq PO BID Biotin 1,000 mcg PO DAILY Ondansetron HCl [Zofran] 4 mg PO TID PRN #10 tablet PRN Reason: Nausea/Vomiting
[2019-06-14 17:27] VITALS: BP 129/69; PULSE 68; O2SAT 94
== END 2019-06-14 19:00 | disposition short-term general hospital (02) ==
LOC: ED 06:42 → MED SURG 11:55
PROVIDERS: ADMIT Family Medicine; ATTEND Family Medicine
DX: N20.1 Calculus of ureter (principal); N39.0 Urinary tract infection, site not specified; E86.0 Dehydration; Z79.899 Other long term (current) drug therapy
CPT/HCPCS: 36000; 36415; 74176; 80048; 80053; 81001; 82805; 83605; 83690; 83735; 85025; 87086; 93268; 94760; 96360; 96374; 96375; 96376; 99285; G0378; J0696; J1200; J1885; J2270; Q0162; A9270-GY

== ENCOUNTER 2021-05-08 11:31 | Emergency (ER) | payer OTHER ==
[2021-05-08] MEDS ORDERED: TORAdol 30 mg Injection IV ONE (11:35)
[2021-05-08] MEDS ORDERED: Sodium Chloride 0.9% 1000 ML 1,000 ML IV STA (11:35)
[2021-05-08] MEDS ORDERED: Zofran 4 MG/2 ML VIAL IV ONE (11:35)
--- NOTE | 2021-05-08 11:35 | ERPHSYRPT ---
- History of Present Illness Time Seen by Provider: 05/08/21 11:35 Historian: patient Exam Limitations: no limitations Physician History: This is a 65-year-old white female has a history of ureterolithiasis in the past and presents with sudden onset of right flank pain with radiation to the right groin this morning. The pain was excruciating. She did vomit once because of the pain. She denies hematuria but states there is some dysuria present. Patient has had an appendectomy in the past. Timing/Duration: today Activities at Onset: none Quality: sharpness, stabbing Abdominal Pain Onset Location: flank Pain Radiation: groin (Right) Severity of Pain-Max: moderate Severity of Pain-Current: moderate Modifying Factors: Improves With: vomiting (Once) Associated Symptoms: vomiting (Once) Previous symptoms: same symptoms as today Allergies/Adverse Reactions: meperidine [From Demerol] Allergy (Mild, Verified 09/26/18 14:13) nauseated and diarrhea sulfamethoxazole [From Bactrim] Adverse Reaction (Severe, Verified 09/26/18 14:13) Nausea and Vomiting MADE HER VERY SICK trimethoprim [From Bactrim] Adverse Reaction (Severe, Verified 09/26/18 14:13) Nausea and Vomiting MADE HER VERY SICK Home Medications: Escitalopram Oxalate [Lexapro] 20 mg PO DAILY 07/06/14 [History] Rosuvastatin Calcium [Crestor] 20 mg PO HS 03/18/17 [History] ALPRAZolam 0.25 MG [xanAX 0.25 MG] 0.25 mg PO BID 09/16/18 [History] Biotin 1,000 mcg PO DAILY 09/24/18 [History] Potassium Chloride 10 Meq Tab* [Klor Con 10 MEQ] 20 meq PO BID 09/24/18 [History] Hx Tetanus, Diphtheria Vaccination/Date Given: Yes Hx Influenza Vaccination/Date Given: No Hx Pneumococcal Vaccination/Date Given: No Travel Risk - International Travel Have you traveled outside of the country in past 3 weeks: No - Coronavirus Screening Are you exhibiting any of the following symptoms?: No Close contact with a COVID-19 positive Pt in past 14-21 Days: No - Review of Systems Constitutional: No Symptoms Eyes: No Symptoms Ears, Nose, & Throat: No Symptoms Respiratory: No Symptoms Cardiac: No Symptoms Abdominal/Gastrointestinal: No Symptoms Genitourinary Symptoms: Dysuria, Flank Pain Musculoskeletal: No Symptoms (Right) Skin: No Symptoms Neurological: No Symptoms Psychological: No Symptoms Endocrine: No Symptoms Hematologic/Lymphatic: No Symptoms Immunological/Allergic: No Symptoms All Other Systems: Reviewed and Negative - Past Medical History Pertinent Past Medical History: Yes Neurological History: No Pertinent History ENT History: No Pertinent History Cardiac History: High Cholesterol Respiratory History: No Pertinent History Endocrine Medical History: No Pertinent History Musculoskeletal History: No Pertinent History GI Medical History: No Pertinent History History: Other Psycho-Social History: Depression, Eating Disorders Female Reproductive Disorders: No Pertinent History Other Medical History: bladder infections, kidney stones October 2016,anorexia. recent diarrhea - Past Surgical History Past Surgical History: Yes Neuro Surgical History: No Pertinent History Cardiac: No Pertinent History Respiratory: No Pertinent History Gastrointestinal: Appendectomy Genitourinary: No Pertinent History Musculoskeletal: No Pertinent History Female Surgical History: Dilation & Curettage Other Surgical History: right breast biopsy-benign - Social History Smoking Status: Current every day smoker How long have you smoked: 44 yrs Exposure to second hand smoke: Yes Drug Use: none Patient Lives Alone: No - Nursing Vital Signs Nursing Vital Signs: Initial Vital Signs Temperature 97.6 F 05/08/21 11:42 Pulse Rate 82 05/08/21 11:42 Respiratory Rate 20 05/08/21 11:42 Blood Pressure 126/74 05/08/21 11:42 O2 Sat by Pulse Oximetry 97 05/08/21 11:42 Pain Scale Pain Intensity 2 - Physical Exam General Appearance: mild distress, alert, anxiety Eye Exam: PERRL/EOMI, eyes nml inspection Ears, Nose, Throat Exam: normal ENT inspection, moist mucous membranes Neck Exam: normal inspection, non-tender, supple, full range of motion Respiratory Exam: normal breath sounds, lungs clear, airway intact, No chest tenderness, No respiratory distress Cardiovascular Exam: regular rate/rhythm, normal heart sounds, normal peripheral pulses Gastrointestinal/Abdomen Exam: soft, normal bowel sounds, tenderness (Mild right groin), No guarding, No rebound Pelvic Exam: not done Rectal Exam: not done Back Exam: normal inspection, normal range of motion, CVA tenderness (Right), No vertebral tenderness Extremity Exam: normal inspection, normal range of motion, pelvis stable Neurologic Exam: alert, oriented x 3, cooperative, nps II-XII nml as tested, normal mood/affect, nml cerebellar function, nml station & gait, sensation nml Skin Exam: normal color, warm, dry Lymphatic Exam: No adenopathy SpO2 Interpretation: normal O2 Delivery: Room Air - Course Nursing assessment & vital signs reviewed: Yes Ordered Tests: Active Orders 24 hr Category Date Time Status IV Insertion STAT Care 05/08/21 11:35 Active ABDOMEN AND PELVIS W/0 CONTRAS [CT] Stat Exams 05/08/21 11:36 Completed AMYLASE Stat Lab 05/08/21 11:43 Completed CBC W DIFF Stat Lab 05/08/21 11:43 Completed CMP Stat Lab 05/08/21 11:43 Completed CULTURE,URINE Stat Lab 05/08/21 11:42 Received LIPASE Stat Lab 05/08/21 11:43 Completed Lactic Acid Stat Lab 05/08/21 11:43 Completed UA W/RFX UR CULTURE Stat Lab 05/08/21 11:42 Completed Medication Summary Discontinued Medications Generic Name Dose Route Start Last Admin Trade Name Freq PRN Reason Stop Dose Admin Hydromorphone HCl 1 mg 05/08/21 11:46 05/08/21 12:14 Hydromorphone 1 Mg/Ml Injection IV 05/08/21 11:47 1 mg STAT ONE Administration Hydromorphone HCl Confirm 05/08/21 12:08 Hydromorphone 1 Mg/Ml Injection Administered 05/08/21 12:09 Dose 1 mg .ROUTE .STK-MED ONE Sodium Chloride 1,000 mls @ 999 mls/hr 05/08/21 11:35 05/08/21 13:14 Sodium Chloride 0.9% 1000 Ml IV 05/08/21 12:35 Infused .Q1H1M STA Infusion Sodium Chloride Confirm 05/08/21 12:08 Sodium Chloride 0.9% 1000 Ml Administered 05/08/21 12:09 Dose 1,000 mls @ ud .ROUTE .STK-MED ONE Ketorolac Tromethamine 30 mg 05/08/21 11:35 05/08/21 12:15 Toradol 30 Mg Injection IV 05/08/21 11:36 30 mg STAT ONE Administration Ketorolac Tromethamine Confirm 05/08/21 12:08 Toradol 30 Mg Injection Administered 05/08/21 12:09 Dose 30 mg .ROUTE .STK-MED ONE Levofloxacin 500 mg 05/08/21 13:43 Levofloxacin 500 Mg Tablet PO 05/08/21 13:44 STAT ONE Ondansetron HCl 4 mg 05/08/21 11:35 05/08/21 12:12 Zofran 4 Mg/2 Ml Vial IV 05/08/21 11:36 4 mg STAT ONE Administration Ondansetron HCl Confirm 05/08/21 12:08 Zofran 4 Mg/2 Ml Vial Administered 05/08/21 12:09 Dose 4 mg .ROUTE .[employer] Lab/Rad Data: Laboratory Result Diagrams 05/08/21 11:43 05/08/21 11:43 Laboratory Results 05/08/21 05/08/21 05/08/21 Range/Units 11:43 11:43 11:43 WBC 6.5 (4.0-10.5) K/mm3 RBC 3.83 L (4.1-5.4) M/mm3 Hgb 12.2 (12.0-16.0) gm/dl Hct 39.6 (35-47) % MCV 103.4 H (78-100) fl MCH 31.9 (26-32) pg MCHC 30.8 L (32-36) g/dl RDW 13.4 (11.5-14.0) % Plt Count 218 (150-450) K/mm3 MPV 10.2 (7.5-11.0) fl Gran % 73.7 H (36.0-66.0) % Eos # (Auto) 0.03 (0-0.5) Absolute Lymphs (auto) 1.38 (1.0-4.6) Absolute Monos (auto) 0.28 (0.0-1.3) Lymphocytes % 21.3 L (24.0-44.0) % Monocytes % 4.3 (0.0-12.0) % Eosinophils % 0.5 (0.00-5.0) % Basophils % 0.2 (0.0-0.4) % Absolute Granulocytes 4.79 (1.4-6.9) Basophils # 0.01 (0-0.4) Sodium 140 (137-145) mmol/L Potassium 3.8 (3.5-5.1) mmol/L Chloride 109 H (98-107) mmol/L Carbon Dioxide 18 L (22-30) mmol/L Anion Gap 17.1 H (5-15) MEQ/L BUN 14 (7-17) mg/dL Creatinine 0.86 (0.52-1.04) mg/dL Estimated GFR > 60.0 ML/MIN Glucose 116 H (74-106) mg/dL Lactic Acid 2.7 H (0.4-2.0) Calcium 9.9 (8.4-10.2) mg/dL Total Bilirubin 0.40 (0.2-1.3) mg/dL AST 29 (14-36) U/L ALT 14 (0-35) U/L Alkaline Phosphatase 98 (38-126) U/L Serum Total Protein 8.1 (6.3-8.2) g/dL Albumin 4.4 (3.5-5.0) g/dL Amylase 120 H (30-110) U/L Lipase 171 (23-300) U/L Urine Color (YELLOW) Urine Appearance (CLEAR) Urine pH (5-6) Ur Specific [place] (1.005-1.025) Urine Protein (Negative) Urine Ketones (NEGATIVE) Urine Blood (0-5) Denis/ul Urine Nitrite (NEGATIVE) Urine Bilirubin (NEGATIVE) Urine Urobilinogen (0-1) mg/dL Ur Leukocyte Esterase (NEGATIVE) Urine WBC (Auto) (0-5) /HPF Urine RBC (Auto) (0-2) /HPF U Epithel Cells (Auto) (FEW) /HPF Urine Bacteria (Auto) (NEGATIVE) /HPF Urine Yeast (Budding) (NEGATIVE) /HPF Urine Culture Reflexed (NO) Urine Glucose (NEGATIVE) mg/dL 05/08/21 Range/Units 11:42 WBC (4.0-10.5) K/mm3 RBC (4.1-5.4) M/mm3 Hgb (12.0-16.0) gm/dl Hct (35-47) % MCV (78-100) fl MCH (26-32) pg MCHC (32-36) g/dl RDW (11.5-14.0) % Plt Count (150-450) K/mm3 MPV (7.5-11.0) fl Gran % (36.0-66.0) % Eos # (Auto) (0-0.5) Absolute Lymphs (auto) (1.0-4.6) Absolute Monos (auto) (0.0-1.3) Lymphocytes % (24.0-44.0) % Monocytes % (0.0-12.0) % Eosinophils % (0.00-5.0) % Basophils % (0.0-0.4) % Absolute Granulocytes (1.4-6.9) Basophils # (0-0.4) Sodium (137-145) mmol/L Potassium (3.5-5.1) mmol/L Chloride (98-107) mmol/L Carbon Dioxide (22-30) mmol/L Anion Gap (5-15) MEQ/L BUN (7-17) mg/dL Creatinine (0.52-1.04) mg/dL Estimated GFR ML/MIN Glucose (74-106) mg/dL Lactic Acid (0.4-2.0) Calcium (8.4-10.2) mg/dL Total Bilirubin (0.2-1.3) mg/dL AST (14-36) U/L ALT (0-35) U/L Alkaline Phosphatase (38-126) U/L Serum Total Protein (6.3-8.2) g/dL Albumin (3.5-5.0) g/dL Amylase (30-110) U/L Lipase (23-300) U/L Urine Color YELLOW (YELLOW) Urine Appearance SLIGHTLY CLOUDY (CLEAR) Urine pH 5.0 (5-6) Ur Specific [place] 1.014 (1.005-1.025) Urine Protein 100 (Negative) Urine Ketones NEGATIVE (NEGATIVE) Urine Blood LARGE (0-5) Denis/ul Urine Nitrite NEGATIVE (NEGATIVE) Urine Bilirubin NEGATIVE (NEGATIVE) Urine Urobilinogen NEGATIVE (0-1) mg/dL Ur Leukocyte Esterase TRACE (NEGATIVE) Urine WBC (Auto) 26-50 (0-5) /HPF Urine RBC (Auto) >101 (0-2) /HPF U Epithel Cells (Auto) NONE (FEW) /HPF Urine Bacteria (Auto) NONE (NEGATIVE) /HPF Urine Yeast (Budding) Occasional (NEGATIVE) /HPF Urine Culture Reflexed YES (NO) Urine Glucose NEGATIVE (NEGATIVE) mg/dL - Progress Progress: improved, pain not gone completely, re-examined Progress Note: 05/08/21 12:25 CAT scan of the abdomen pelvis without contrast shows bilateral nonobstructing renal calculi. - Departure Departure Disposition: Home Clinical Impression: UTI (urinary tract infection), Hematuria, Ureterolithiasis Condition: Stable Critical Care Time: No Referrals: ALLISON REEDER MD [Primary Care Provider] - Additional Instructions: Drink plenty of fluids. Take your medication as prescribed. Use Tylenol and ibuprofen for pain control. Prescriptions: Ciprofloxacin [Cipro 500 MG] 500 mg PO BID #14 tablet
[2021-05-08] MEDS ORDERED: Hydromorphone 1 mg/ml Injection IV ONE (11:46)
[2021-05-08 11:55] LABS: Absolute Neutrophil Ct (ANC) 4.79 (1.4-6.9); BASOPHIL % 0.2 % (0.0-0.4); Basophil (Absolute #) 0.01 (0-0.4); Eosinophil % 0.5 % (0.00-5.0); Eosinophil (Absolute #) 0.03 (0-0.5); Hematocrit 39.6 % (35-47); Hemoglobin 12.2 gm/dl (12.0-16.0); Lymphocyte (Absolute #) 1.38 (1.0-4.6); Lymphocytes % 21.3 % (24.0-44.0); Mean Cell Volume 103.4 fl (78-100); Mean Corpuscular Hemoglobin 31.9 pg (26-32); Mean Corpuscular Hgb Concent. 30.8 g/dl (32-36); Mean Platelet Volume 10.2 fl (7.5-11.0); Monocyte (Absolute #) 0.28 (0.0-1.3); Monocytes % 4.3 % (0.0-12.0); Neutrophil % 73.7 % (36.0-66.0); Platelet Count 218 K/mm3 (150-450); Red Blood Count 3.83 M/mm3 (4.1-5.4); Red Cell Distribution Width 13.4 % (11.5-14.0); White Blood Count 6.5 K/mm3 (4.0-10.5)
[2021-05-08 12:06] LABS: ALBUMIN 4.4 g/dL (3.5-5.0); ALKALINE PHOSPHATASE 98 U/L (38-126); AMYLASE 120 U/L (30-110); ANION GAP 17.1 MEQ/L (5-15); BLOOD UREA NITROGEN 14 mg/dL (7-17); CHLORIDE 109 mmol/L (98-107); Calcium 9.9 mg/dL (8.4-10.2); Carbon Dioxide 18 mmol/L (22-30); Creatinine 1 0.86 mg/dL (0.52-1.04); EST GLOMERULAR FILTRATION RATE > 60.0 ML/MIN; Glucose 116 mg/dL (74-106); LIPASE 171 U/L (23-300); Potassium 3.8 mmol/L (3.5-5.1); SGOT/AST 29 U/L (14-36); SGPT/ALT 14 U/L (0-35); SODIUM 140 mmol/L (137-145); Total Protein 8.1 g/dL (6.3-8.2)
[2021-05-08] MEDS ORDERED: TORAdol 30 mg Injection ONE (12:08)
[2021-05-08] MEDS ORDERED: Sodium Chloride 0.9% 1000 ML 1,000 ML ONE (12:08)
[2021-05-08] MEDS ORDERED: Zofran 4 MG/2 ML VIAL ONE (12:08)
[2021-05-08] MEDS ORDERED: Hydromorphone 1 mg/ml Injection ONE (12:08)
--- NOTE | 2021-05-08 12:20 | XRAY ---
Indication: Right lower abdomen and flank pain. History of stones. Multiple contiguous axial images obtained through the abdomen and pelvis without contrast using renal stone protocol. Comparison: June 13, 2019. Lung bases demonstrates minimal dependent atelectasis and mild right middle lobe fibrosis/scarring. Heart not enlarged. Right kidney demonstrates 3 new nonobstructing punctate calculi. Left kidney demonstrates nonobstructing new 1.4 cm upper and 4 mm lower pole calculi. Noncontrasted stomach and bowel loops appear nonobstructed. Previous appendectomy. No free fluid/air. Remaining liver, gallbladder, pancreas, spleen, adrenal glands, ureters, bladder, and uterus are unremarkable for noncontrast exam. Again mild scattered aortoiliac calcifications without AAA. Osseous structures intact. No ventral or inguinal hernias. Impression: 1. New nonobstructing bilateral renal calculi. 2. Remaining CT abdomen/pelvis without contrast exam is negative.
[2021-05-08 12:50] VITALS: O2SAT 98
[2021-05-08 13:30] LABS: Appearance SLIGHTLY CLOUDY (CLEAR); Bilirubin NEGATIVE (NEGATIVE); Blood LARGE Ery/ul (0-5); Glucose NEGATIVE (NEGATIVE); Ketones NEGATIVE (NEGATIVE); Leukocyte Esterase TRACE (NEGATIVE); Nitrite NEGATIVE (NEGATIVE); Protein,Urine Dip 100 (Negative); Specific Gravity 1.014 (1.005-1.025); Urobilinogen NEGATIVE mg/dL (0-1); WBC 26-50 /HPF (0-5)
[2021-05-08 13:31] LABS: Budding Yeast Occasional /HPF (NEGATIVE); RBC >101 /HPF (0-2)
[2021-05-08 13:39] VITALS: BP 103/64; PULSE 57
[2021-05-08] MEDS ORDERED: Levofloxacin 500 MG Tablet PO ONE (13:43)
[2021-05-08] MEDS ORDERED: Levofloxacin 500 MG Tablet ONE (13:47)
== END 2021-05-08 14:00 | disposition home or self-care (01) ==
LOC: ED 11:31
DX: N39.0 Urinary tract infection, site not specified (principal); R31.9 Hematuria, unspecified; N20.1 Calculus of ureter; R10.9 Unspecified abdominal pain; R11.10 Vomiting, unspecified; Z79.899 Other long term (current) drug therapy; R30.0 Dysuria; E78.00 Pure hypercholesterolemia, unspecified; F17.200 Nicotine dependence, unspecified, uncomplicated
CPT/HCPCS: 36000; 36415; 74176; 80053; 81001; 82150; 83605; 83690; 85025; 87086; 96360; 96374; 96375; 99284; J1170; J1885; J2405; A9270-GY

== ENCOUNTER 2022-11-29 18:05 | Observation (INO) | payer BC, MEDICARE ==
[2022-11-29] MEDS ORDERED: Zofran 4 MG/2 ML VIAL IV ONE (18:33)
[2022-11-29] MEDS ORDERED: Sodium Chloride 0.9% 1000 ML 1,000 ML IV STA ×2 (18:34→20:16)
[2022-11-29] MEDS ORDERED: Zofran 4 MG/2 ML VIAL ONE (18:35)
[2022-11-29] MEDS ORDERED: Sodium Chloride 0.9% 1000 ML 1,000 ML ONE ×2 (18:36→20:21)
--- NOTE | 2022-11-29 18:53 | ERPHSYRPT ---
- History of Present Illness Source: patient, other () Exam Limitations: no limitations Patient Subjective Stated Complaint: Pt states "I have not been feeling well for a little while, I have diarrhea, I am nauseated, and I have a horrible headache." Triage Nursing Assessment: PT presented alert and oriented X 3, skin pwd. Pt ambulates with an upright steady gait, able to speak in clear full sentences. Pt in no apparent respiratory distress. Pt resting comfortably in bed. Physician History: 66 yo WF w N/V/D x10 days. Pt has had an intermittent fever/VERGARA but denies abdominal pain/chest pain/cough/coryza/dysuria/hematuria/ST/melena/hematochezia. She has chronic diarrhea but now worse. She saw Dr. Reeder and clinic last week. Timing/Duration: other (10 days) Modifying Factors: Improves With: nothing Associated Symptoms: nausea, vomiting, headaches, loss of appetite Allergies/Adverse Reactions: meperidine [From Demerol] Allergy (Mild, Verified 09/26/18 14:13) nauseated and diarrhea nitrofurantoin [From Macrobid] Adverse Reaction (Severe, Verified 11/29/22 18:26) vomit and diarrhea sulfamethoxazole [From Bactrim] Adverse Reaction (Severe, Verified 09/26/18 14:13) Nausea and Vomiting MADE HER VERY SICK trimethoprim [From Bactrim] Adverse Reaction (Severe, Verified 09/26/18 14:13) Nausea and Vomiting MADE HER VERY SICK Home Medications: Escitalopram Oxalate [Lexapro] 20 mg PO DAILY 07/06/14 [History] Rosuvastatin Calcium [Crestor] 20 mg PO HS 03/18/17 [History] ALPRAZolam 0.25 MG [xanAX 0.25 MG] 0.25 mg PO BID 09/16/18 [History] Biotin 1,000 mcg PO DAILY 09/24/18 [History] Potassium Chloride Tab* [Klor Con] 20 meq PO BID 09/24/18 [History] Hx Tetanus, Diphtheria Vaccination/Date Given: Yes Hx Influenza Vaccination/Date Given: No Hx Pneumococcal Vaccination/Date Given: No Immunizations Up to Date: Yes Travel Risk - International Travel Have you traveled outside of the country in past 3 weeks: No - Coronavirus Screening Are you exhibiting any of the following symptoms?: Yes Symptoms: Fever, Vomiting/Diarrhea, Headaches/Body Aches/Fatigue - Vaccine Status Have you recieved a Covid-19 vaccination: Yes 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 - Review of Systems Constitutional: No Symptoms, Fever, Malaise, Weakness Eyes: No Symptoms Ears, Nose, & Throat: No Symptoms Respiratory: No Symptoms Cardiac: No Symptoms Abdominal/Gastrointestinal: No Symptoms, Nausea, Vomiting, Diarrhea Genitourinary Symptoms: No Symptoms Musculoskeletal: No Symptoms Skin: No Symptoms Neurological: No Symptoms, Headache Psychological: No Symptoms Endocrine: No Symptoms Hematologic/Lymphatic: No Symptoms Immunological/Allergic: No Symptoms - Past Medical History Pertinent Past Medical History: Yes Neurological History: No Pertinent History ENT History: No Pertinent History Cardiac History: High Cholesterol Respiratory History: No Pertinent History Endocrine Medical History: No Pertinent History Musculoskeletal History: Osteoarthritis GI Medical History: No Pertinent History History: Other Psycho-Social History: Depression, Eating Disorders Female Reproductive Disorders: No Pertinent History Other Medical History: ANXIETY/DEPRESSION. hypokalemia. c diff. sepsis - Past Surgical History Past Surgical History: Yes Neuro Surgical History: No Pertinent History Cardiac: No Pertinent History Respiratory: No Pertinent History Gastrointestinal: Appendectomy Genitourinary: No Pertinent History Musculoskeletal: No Pertinent History Female Surgical History: Dilation & Curettage Other Surgical History: right breast biopsy-benign - Social History Smoking Status: Current every day smoker How long have you smoked: 44 yrs Exposure to second hand smoke: Yes Drug Use: none Patient Lives Alone: No - Nursing Vital Signs Nursing Vital Signs: Initial Vital Signs Temperature 98.4 F 11/29/22 18:19 Pulse Rate 98 H 11/29/22 18:19 Respiratory Rate 22 11/29/22 18:19 Blood Pressure 125/96 11/29/22 18:19 O2 Sat by Pulse Oximetry 98 11/29/22 18:19 Pain Scale Pain Intensity 0 WNL - Physical Exam General Appearance: no apparent distress Eye Exam: PERRL/EOMI, eyes nml inspection Ears, Nose, Throat Exam: normal ENT inspection, TMs normal, pharynx normal, dry mucous membranes Neck Exam: normal inspection, non-tender, supple, full range of motion, No meningismus, No Brudzinski, No Kernig's, No carotid bruit Respiratory Exam: airway intact, crackles/rales (Faint rales R base), No respiratory distress Cardiovascular Exam: regular rate/rhythm, normal heart sounds, normal peripheral pulses, capillary refill <2 sec, No murmur Gastrointestinal/Abdomen Exam: soft, normal bowel sounds, No tenderness Back Exam: normal inspection, normal range of motion, No CVA tenderness Extremity Exam: normal inspection, normal range of motion Neurologic Exam: alert, oriented x 3, cooperative, 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, normal mood/affect, nml cerebellar function, nml station & gait, sensation nml Skin Exam: normal color, warm, dry, No rash Lymphatic Exam: No adenopathy SpO2 Interpretation: normal SpO2: 98 O2 Delivery: Room Air - Course Nursing assessment & vital signs reviewed: Yes EKG Interpreted by Me: RATE (NSR/Rate 77/Normal QT-QTc/No acute ST segment jian nges/Normal Twaves) - CT Exams Abdomen/Pelvis CT Interpretation: Tele-radiologist Report (Distended small bowel and colon loops w air-fluid levels) Ordered Tests: Active Orders 24 hr Category Date Time Status EKG-ER Only STAT Care 11/29/22 22:07 Active ABDOMEN AND PELVIS W CONTRAST [CT] Stat Exams 11/29/22 20:16 Completed CHEST 1 VIEW (PORTABLE) Stat Exams 11/29/22 18:39 Taken CBC W DIFF Stat Lab 11/29/22 18:49 Completed CMP Stat Lab 11/29/22 18:49 Completed CULTURE,URINE Stat Lab 11/29/22 20:51 Received Lactic Acid Stat Lab 11/29/22 18:46 Completed NT PRO BNPII Stat Lab 11/29/22 18:49 Completed TROPONIN Q4H Lab 11/29/22 18:49 Completed TROPONIN Q4H Lab 11/29/22 23:06 Completed TROPONIN Q4H Lab 11/30/22 02:45 Ordered UA W/RFX UR CULTURE Stat Lab 11/29/22 20:51 Completed Transfer Order Routine Transfer 11/30/22 Ordered Medication Summary Discontinued Medications Generic Name Dose Route Start Last Admin Trade Name Freq PRN Reason Stop Dose Admin Sodium Chloride 1,000 mls @ 999 mls/hr 11/29/22 18:34 11/29/22 19:59 Sodium Chloride 0.9% 1000 Ml IV 11/29/22 19:34 Infused .Q1H1M STA Infusion Sodium Chloride Confirm 11/29/22 18:36 Sodium Chloride 0.9% 1000 Ml Administered 11/29/22 18:37 Dose 1,000 mls @ ud .ROUTE .STK-MED ONE Sodium Chloride 1,000 mls @ 999 mls/hr 11/29/22 20:16 11/29/22 21:51 Sodium Chloride 0.9% 1000 Ml IV 11/29/22 21:16 Infused .Q1H1M STA Infusion Sodium Chloride Confirm 11/29/22 20:21 Sodium Chloride 0.9% 1000 Ml Administered 11/29/22 20:22 Dose 1,000 mls @ ud .ROUTE .STK-MED ONE Ondansetron HCl 4 mg 11/29/22 18:33 11/29/22 18:36 Ondansetron Hcl 4 Mg/2 Ml Vial IV 11/29/22 18:34 4 mg STAT ONE Administration Ondansetron HCl Confirm 11/29/22 18:35 Ondansetron Hcl 4 Mg/2 Ml Vial Administered 11/29/22 18:36 Dose 4 mg .ROUTE .STK-MED ONE Potassium Chloride 40 meq 11/29/22 19:22 11/29/22 20:07 Potassium Chloride Tab 10 Meq Tab PO 11/29/22 19:23 40 meq STAT ONE Administration Potassium Chloride Confirm 11/29/22 20:05 Potassium Chloride Tab 10 Meq Tab Administered 11/29/22 20:06 Dose 40 meq PO .STK-MED ONE Lab/Rad Data: Laboratory Result Diagrams 11/29/22 18:49 11/29/22 18:49 Laboratory Results 11/29/22 11/29/22 11/29/22 Range/Units 23:06 22:37 20:51 WBC (4.0-10.5) x10^3/uL RBC (4.1-5.4) x10^6/uL Hgb (12.0-16.0) g/dL Hct (35-47) % MCV (78-100) fL MCH (26-32) pg MCHC (32-36) g/dL RDW (11.5-14.0) % Plt Count (150-450) x10^3/uL MPV (7.5-11.0) fL Gran % (36.0-66.0) % Immature Gran % (Auto) (0.00-0.4) % Nucleat RBC Rel Count (0.00-0.1) % Eos # (Auto) (0-0.5) x10^3/uL Immature Gran # (Auto) (0.00-0.03) x10^3u/L Absolute Lymphs (auto) (1.0-4.6) x10^3/uL Absolute Monos (auto) (0.0-1.3) x10^3/uL Absolute Nucleated RBC (0.00-0.01) x10^3u/L Lymphocytes % (24.0-44.0) % Monocytes % (0.0-12.0) % Eosinophils % (0.00-5.0) % Basophils % (0.0-0.4) % Absolute Granulocytes (1.4-6.9) x10^3/uL Basophils # (0-0.4) x10^3/uL Sodium (137-145) mmol/L Potassium (3.5-5.1) mmol/L Chloride (98-107) mmol/L Carbon Dioxide (22-30) mmol/L Anion Gap (5-15) MEQ/L BUN (7-17) mg/dL Creatinine (0.52-1.04) mg/dL Estimated GFR ML/MIN Glucose (74-106) mg/dL Lactic Acid (0.4-2.0) Calcium (8.4-10.2) mg/dL Total Bilirubin (0.2-1.3) mg/dL AST (14-36) U/L ALT (0-35) U/L Alkaline Phosphatase (38-126) U/L Troponin I < 0.012 (0.000-0.034) ng/mL NT-Pro-B Natriuret Pep (<300) pg/mL Serum Total Protein (6.3-8.2) g/dL Albumin (3.5-5.0) g/dL Urine Color Yellow (Yellow) Urine Appearance Clear (Clear) Urine pH 6.5 (4.6-8.0) Ur Specific Pinch 1.010 (1.005-1.030) Urine Protein 30 (Negative) Urine Glucose (UA) Negative (Negative) mg/dL Urine Ketones Negative (Negative) Urine Blood Negative (Negative) Urine Nitrite Negative (Negative) Urine Bilirubin Negative (Negative) Urine Urobilinogen 0.2 (0.2) mg/dL Ur Leukocyte Esterase Trace A (Negative) U Hyaline Cast (Auto) NONE SEEN (0-2) /LPF Urine Microscopic RBC 0-2 (0-5) /HPF Urine Microscopic WBC 0-2 (0-5) /HPF Ur Epithelial Cells Rare (None Seen) /HPF Urine Bacteria None Seen (None Seen) /HPF Urine Culture Reflexed YES (NO) C. difficile Screen NEGATIVE (NEGATIVE) C.difficile 027-NAP1-B1 PRESUMPTIVE NEGATIVE (NEGATIVE) Influenza Type A Ag (NEGATIVE) Influenza Type B Ag (NEGATIVE) RSV (PCR) (NEGATIVE) SARS-CoV-2 (PCR) (NEGATIVE) Group A Strep Antibody (NEGATIVE) 11/29/22 11/29/22 11/29/22 Range/Units 18:50 18:50 18:49 WBC (4.0-10.5) x10^3/uL RBC (4.1-5.4) x10^6/uL Hgb (12.0-16.0) g/dL Hct (35-47) % MCV (78-100) fL MCH (26-32) pg MCHC (32-36) g/dL RDW (11.5-14.0) % Plt Count (150-450) x10^3/uL MPV (7.5-11.0) fL Gran % (36.0-66.0) % Immature Gran % (Auto) (0.00-0.4) % Nucleat RBC Rel Count (0.00-0.1) % Eos # (Auto) (0-0.5) x10^3/uL Immature Gran # (Auto) (0.00-0.03) x10^3u/L Absolute Lymphs (auto) (1.0-4.6) x10^3/uL Absolute Monos (auto) (0.0-1.3) x10^3/uL Absolute Nucleated RBC (0.00-0.01) x10^3u/L Lymphocytes % (24.0-44.0) % Monocytes % (0.0-12.0) % Eosinophils % (0.00-5.0) % Basophils % (0.0-0.4) % Absolute Granulocytes (1.4-6.9) x10^3/uL Basophils # (0-0.4) x10^3/uL Sodium (137-145) mmol/L Potassium (3.5-5.1) mmol/L Chloride (98-107) mmol/L Carbon Dioxide (22-30) mmol/L Anion Gap (5-15) MEQ/L BUN (7-17) mg/dL Creatinine (0.52-1.04) mg/dL Estimated GFR ML/MIN Glucose (74-106) mg/dL Lactic Acid (0.4-2.0) Calcium (8.4-10.2) mg/dL Total Bilirubin (0.2-1.3) mg/dL AST (14-36) U/L ALT (0-35) U/L Alkaline Phosphatase (38-126) U/L Troponin I < 0.012 (0.000-0.034) ng/mL NT-Pro-B Natriuret Pep 53.5 (<300) pg/mL Serum Total Protein (6.3-8.2) g/dL Albumin (3.5-5.0) g/dL Urine Color (Yellow) Urine Appearance (Clear) Urine pH (4.6-8.0) Ur Specific Pinch (1.005-1.030) Urine Protein (Negative) Urine Glucose (UA) (Negative) mg/dL Urine Ketones (Negative) Urine Blood (Negative) Urine Nitrite (Negative) Urine Bilirubin (Negative) Urine Urobilinogen (0.2) mg/dL Ur Leukocyte Esterase (Negative) U Hyaline Cast (Auto) (0-2) /LPF Urine Microscopic RBC (0-5) /HPF Urine Microscopic WBC (0-5) /HPF Ur Epithelial Cells (None Seen) /HPF Urine Bacteria (None Seen) /HPF Urine Culture Reflexed (NO) C. difficile Screen (NEGATIVE) C.difficile 027-NAP1-B1 (NEGATIVE) Influenza Type A Ag NEGATIVE (NEGATIVE) Influenza Type B Ag NEGATIVE (NEGATIVE) RSV (PCR) NEGATIVE (NEGATIVE) SARS-CoV-2 (PCR) NEGATIVE (NEGATIVE) Group A Strep Antibody NOT DETECTED (NEGATIVE) 11/29/22 11/29/22 11/29/22 Range/Units 18:49 18:49 18:46 WBC 3.7 L (4.0-10.5) x10^3/uL RBC 4.12 (4.1-5.4) x10^6/uL Hgb 12.5 (12.0-16.0) g/dL Hct 38.0 (35-47) % MCV 92.2 (78-100) fL MCH 30.3 (26-32) pg MCHC 32.9 (32-36) g/dL RDW 13.0 (11.5-14.0) % Plt Count 261 (150-450) x10^3/uL MPV 9.8 (7.5-11.0) fL Gran % 36.2 (36.0-66.0) % Immature Gran % (Auto) 0.3 (0.00-0.4) % Nucleat RBC Rel Count 0.0 (0.00-0.1) % Eos # (Auto) 0.01 (0-0.5) x10^3/uL Immature Gran # (Auto) 0.01 (0.00-0.03) x10^3u/L Absolute Lymphs (auto) 1.76 (1.0-4.6) x10^3/uL Absolute Monos (auto) 0.53 (0.0-1.3) x10^3/uL Absolute Nucleated RBC 0.00 (0.00-0.01) x10^3u/L Lymphocytes % 48.2 H (24.0-44.0) % Monocytes % 14.5 H (0.0-12.0) % Eosinophils % 0.3 (0.00-5.0) % Basophils % 0.5 (0.0-0.4) % Absolute Granulocytes 1.32 L (1.4-6.9) x10^3/uL Basophils # 0.02 (0-0.4) x10^3/uL Sodium 137 (137-145) mmol/L Potassium 2.7 L* (3.5-5.1) mmol/L Chloride 101 (98-107) mmol/L Carbon Dioxide 24 (22-30) mmol/L Anion Gap 14.7 (5-15) MEQ/L BUN 19 H (7-17) mg/dL Creatinine 0.99 (0.52-1.04) mg/dL Estimated GFR > 60.0 ML/MIN Glucose 114 H (74-106) mg/dL Lactic Acid 1.2 (0.4-2.0) Calcium 9.7 (8.4-10.2) mg/dL Total Bilirubin 0.40 (0.2-1.3) mg/dL AST 21 (14-36) U/L ALT 13 (0-35) U/L Alkaline Phosphatase 75 (38-126) U/L Troponin I (0.000-0.034) ng/mL NT-Pro-B Natriuret Pep (<300) pg/mL Serum Total Protein 7.9 (6.3-8.2) g/dL Albumin 4.1 (3.5-5.0) g/dL Urine Color (Yellow) Urine Appearance (Clear) Urine pH (4.6-8.0) Ur Specific Pinch (1.005-1.030) Urine Protein (Negative) Urine Glucose (UA) (Negative) mg/dL Urine Ketones (Negative) Urine Blood (Negative) Urine Nitrite (Negative) Urine Bilirubin (Negative) Urine Urobilinogen (0.2) mg/dL Ur Leukocyte Esterase (Negative) U Hyaline Cast (Auto) (0-2) /LPF Urine Microscopic RBC (0-5) /HPF Urine Microscopic WBC (0-5) /HPF Ur Epithelial Cells (None Seen) /HPF Urine Bacteria (None Seen) /HPF Urine Culture Reflexed (NO) C. difficile Screen (NEGATIVE) C.difficile 027-NAP1-B1 (NEGATIVE) Influenza Type A Ag (NEGATIVE) Influenza Type B Ag (NEGATIVE) RSV (PCR) (NEGATIVE) SARS-CoV-2 (PCR) (NEGATIVE) Group A Strep Antibody (NEGATIVE) - Progress Progress Note: 11/30/22 00:12 Nursing note and vital signs reviewed No food or housing insecurities noted All lab results reviewed and shared w pt 1L NS bolus x2 11/30/22 00:[address] result reviewed and shared w pt/ Obs admit per Dr. Rivera full code Discussed with : Other Counseled pt/family regarding: lab results, diagnosis, rad results Medical Desision Making - Independent Historian Additional History obtained from: Spouse - Discussion of managment Care discussed with:: hospitalist Reviewed:: Test results Agreed on:: Treatment plan, place in obs Will see patient: in hospital - Diagnostic Testing Diagnostic test were ordered, analyzed, and reviewed by me: Yes Radiological Interpretation: Reviewed by me, Discussed w/ radiologist - Risk of complications The pt has a mod risk of morbidity or mortality based on: Need for prescription drug management - Departure Clinical Impression: Colitis, Hypokalemia Condition: Stable Critical Care Time: Yes Critical Care Time(excluding separately billable procedures): Critical 30-74 mins Referrals: ALLISON REEDER MD [Primary Care Provider] - Follow up/PCP as directed
[2022-11-29 18:57] LABS: Absolute Neutrophil Ct (ANC) 1.32 x10^3/uL (1.4-6.9); BASOPHIL % 0.5 % (0.0-0.4); Basophil (Absolute #) 0.02 x10^3/uL (0-0.4); Eosinophil % 0.3 % (0.00-5.0); Eosinophil (Absolute #) 0.01 x10^3/uL (0-0.5); Hemoglobin 12.5 g/dL (12.0-16.0); IMMATURE GRAN # 0.01 x10^3u/L (0.00-0.03); IMMATURE GRAN % 0.3 % (0.00-0.4); Lymphocyte (Absolute #) 1.76 x10^3/uL (1.0-4.6); Lymphocytes % 48.2 % (24.0-44.0); Mean Cell Volume 92.2 fL (78-100); Mean Corpuscular Hemoglobin 30.3 pg (26-32); Mean Corpuscular Hgb Concent. 32.9 g/dL (32-36); Mean Platelet Volume 9.8 fL (7.5-11.0); Monocyte (Absolute #) 0.53 x10^3/uL (0.0-1.3); Monocytes % 14.5 % (0.0-12.0); Neutrophil % 36.2 % (36.0-66.0); Platelet Count 261 x10^3/uL (150-450); Red Blood Count 4.12 x10^6/uL (4.1-5.4); White Blood Count 3.7 x10^3/uL (4.0-10.5)
[2022-11-29 19:15] LABS: ALBUMIN 4.1 g/dL (3.5-5.0); ALKALINE PHOSPHATASE 75 U/L (38-126); ANION GAP 14.7 MEQ/L (5-15); BLOOD UREA NITROGEN 19 mg/dL (7-17); CHLORIDE 101 mmol/L (98-107); Calcium 9.7 mg/dL (8.4-10.2); Carbon Dioxide 24 mmol/L (22-30); Creatinine 1 0.99 mg/dL (0.52-1.04); EST GLOMERULAR FILTRATION RATE > 60.0 ML/MIN; Glucose 114 mg/dL (74-106); SGOT/AST 21 U/L (14-36); SGPT/ALT 13 U/L (0-35); SODIUM 137 mmol/L (137-145); Total Protein 7.9 g/dL (6.3-8.2)
[2022-11-29 19:20] LABS: Potassium 2.7 mmol/L (3.5-5.1)
[2022-11-29] MEDS ORDERED: Klor Con PO ONE ×2 (19:22→20:05)
[2022-11-29 19:26] LABS: NT PRO BNPII 53.5 pg/mL (<300); TROPONIN < 0.012 ng/mL (0.000-0.034)
[2022-11-29 19:31] LABS: INFLUENZA A NEGATIVE (NEGATIVE); INFLUENZA B NEGATIVE (NEGATIVE); RESPIRATORY SYNCTIAL VIRUS NEGATIVE (NEGATIVE); SARS-CoV-2 Xpert Express NEGATIVE (NEGATIVE)
[2022-11-29 20:59] LABS: Appearance Clear (Clear); Bacteria None Seen /HPF (None Seen); Bilirubin Negative (Negative); Blood Negative (Negative); Epithelial Cells Rare /HPF (None Seen); Glucose, Urine Negative (Negative); Hyaline Casts NONE SEEN /LPF (0-2); Ketones Negative (Negative); Leukocyte Esterase Trace (Negative); Nitrite Negative (Negative); Ph 6.5 (4.6-8.0); Protein,Urine Dip 30 (Negative); RBC 0-2 /HPF (0-5); Urobilinogen 0.2 mg/dL (0.2); WBC 0-2 /HPF (0-5)
[2022-11-29 21:02] LABS: ADD URINE CULTURE? YES (NO)
--- NOTE | 2022-11-29 22:30 | XRAY ---
CLINICAL HISTORY:Vomiting/diarrhea. COMPARISON:None; TECHNIQUES:CT scan of the abdomen and pelvis was performed with IV contrast. 80 ml of Inj. Isovue (370 mg/100 ml) was administered as an intravenous contrast agent. Bowel loops are opacified by prior administration of oral contrast. Coronal and sagittal reconstructive images were also obtained. CTDI 6.62 mGy, DLP 327.75 mGycm; FINDINGS: Scan through the lower chest reveals unremarkable lung bases and heart. Abdomen. The liver is of average size and measures 16 cm. No focal or diffuse parenchymal abnormality. The portal vein, intrahepatic biliary radicals and the bile ducts are normal. The gallbladder is contracted. There is no evidence of wall thickening/ pericholecystic collection. The spleen, pancreas, and adrenal glands are unremarkable. The kidneys are normal in size and shape. There is a 15 x 10 mm stone in the upper pole of the left kidney. No calculi on the right kidney. No hydronephrosis bilaterally. Bilateral extrarenal pelvis. The stomach is unremarkable. There is no evidence of significant enlargement of the mesenteric or retroperitoneal lymph nodes. The small bowel, and colon bowel loops are distended, with fluid-air levels, and mild thickening of the wall. No bowel obstruction, free fluid or free air. No free fluid. Pelvis. The urinary bladder is unremarkable. Reproductive organs unremarkable. The pelvic vasculature is unremarkable. No evidence of pelvic lymphadenopathy. No definite bony abnormalities could be depicted. IMPRESSION: 1. Stone in the left kidney. No hydronephrosis. 2. Distended small bowel and colon loops, with fluid-air levels, with associated mild wall thickening. These findings are suggestive of enteritis, and require clinical and laboratory evaluation. Electronically Signed by: Azeem Trinh MD. (11/29/2022 21:19:16 RADIO DIS[facility] JOCKEY)
[2022-11-29 23:22] LABS: 027 TOX PROD PRESUMPTIVE NEGATIVE (NEGATIVE); TOXIGENIC C. DIFF ORG NEGATIVE (NEGATIVE)
[2022-11-30] MEDS ORDERED: FLAGYL 500 MG IVPB 500 MG/100 ML BAG IV STA (00:55)
[2022-11-30] MEDS ORDERED: Sodium Chloride 0.9% 1000 ML 1,000 ML IV SCH (01:34)
[2022-11-30] MEDS ORDERED: Zofran 4 MG/2 ML VIAL IV PRN (01:34)
--- NOTE | 2022-11-30 02:41 | PCM.HP ---
History of Present Illness - Chief Complaint Chief Complaint: Colitis/hypokalemia Date: 11/30/22 History of Present Illness: 66 yo wf with hx of Chronic Diarrhea(unclear etiology, goes multiple times per day, generally after meals), MDD, HLP presents with a 10 day hx of worsening diarrhea and inability to keep food down. Pt has noted low grade temps. Only minimal abd pain. Pt had sick contacts: grandkids with strep but no GI sxs. She has not recently been on antibxs. She came in dehydrated and hypokalemic. She was started on IVFs. CT showed enteritis/colitis. - Review of Systems Constitutional: Fever Eyes: No Symptoms Ears, Nose, & Throat: No Symptoms Respiratory: No Symptoms Cardiac: No Symptoms Abdominal/Gastrointestinal: Nausea, Vomiting, Diarrhea Genitourinary Symptoms: No Symptoms Musculoskeletal: No Symptoms Skin: No Symptoms Neurological: No Symptoms Psychological: No Symptoms Endocrine: No Symptoms Hematologic/Lymphatic: No Symptoms Immunological/Allergic: No Symptoms Medications & Allergies Home Medications: Home Medication List Escitalopram Oxalate [Lexapro] 20 mg PO DAILY 07/06/14 [History Confirmed 11/29/22] Rosuvastatin Calcium [Crestor] 20 mg PO HS 03/18/17 [History Confirmed 11/29/22] ALPRAZolam 0.25 MG [xanAX 0.25 MG] 0.25 mg PO BID 09/16/18 [History Confirmed 11/29/22] Biotin 1,000 mcg PO DAILY 09/24/18 [History Confirmed 11/29/22] Potassium Chloride Tab* [Klor Con] 20 meq PO BID 09/24/18 [History Confirmed 11/29/22] ondansetron HCL [Zofran] 4 mg PO TID PRN #10 tablet 09/26/18 [Rx Confirmed 11/29/22] Allergies/Adverse Reactions: Allergies Allergy/AdvReac Type Severity Reaction Status Date / Time meperidine [From Demerol] Allergy Mild nauseated Verified 09/26/18 14:13 and diarrhea nitrofurantoin AdvReac Severe vomit and Verified 11/29/22 18:26 [From Macrobid] diarrhea sulfamethoxazole AdvReac Severe Nausea and Verified 09/26/18 14:13 [From Bactrim] Vomiting trimethoprim [From Bactrim] AdvReac Severe Nausea and Verified 09/26/18 14:13 Vomiting - Past Medical History Past Medical History: Yes Neurological History: No Pertinent History ENT History: No Pertinent History Cardiac History: High Cholesterol Respiratory History: No Pertinent History Endocrine Medical History: No Pertinent History Musculoskelatal History: No Pertinent History GI Medical History: No Pertinent History History: Other Pyscho-Social History: Depression, Eating Disorders Reproductive Disorders: No Pertinent History Comment: ANXIETY/DEPRESSION. hypokalemia. c diff. sepsis - Female History Are you now?: No - Past Surgical History Past Surgical History: Yes Neuro Surgical History: No Pertinent History Cardiac History: No Pertinent History Respiratory Surgery: No Pertinent History GI Surgical History: Appendectomy Genitourinary Surgical Hx: No Pertinent History Musculskeletal Surgical Hx: No Pertinent History Female Surgical History: Dilation & Curettage Other Surgical History: right breast biopsy-benign - Social History Smoking Status: Current some day smoker How long have you smoked: 44 yrs Exposure to second hand smoke: Yes Alcohol: None Drug Use: none - Physical Exam Vital Signs: Vital Signs - 24 hr Temp Pulse Resp BP Pulse Ox 11/30/22 01:46 97.5 F 73 16 106/66 95 11/30/22 00:14 98 11/30/22 00:00 69 18 135/76 95 11/29/22 22:00 74 20 122/80 96 11/29/22 21:05 75 18 122/85 97 11/29/22 20:00 74 17 113/73 98 11/29/22 19:16 83 18 103/82 11/29/22 18:19 98.4 F 98 H 22 125/96 98 General Appearance: no apparent distress Neurologic Exam: alert, oriented x 3 Eye Exam: PERRL/EOMI Ears, Nose, Throat Exam: dry mucous membranes Neck Exam: normal inspection Respiratory Exam: normal breath sounds Cardiovascular Exam: regular rate/rhythm, normal heart sounds Gastrointestinal/Abdomen Exam: soft, other (hyperactive BS), No tenderness, No distention Back Exam: normal inspection Extremity Exam: normal inspection Skin Exam: normal color Results - Labs Lab/Micro Results: Lab Results-Last 24 Hours 11/29/22 11/29/22 11/29/22 Range/Units 18:46 18:49 18:49 WBC 3.7 L (4.0-10.5) x10^3/uL RBC 4.12 (4.1-5.4) x10^6/uL Hgb 12.5 (12.0-16.0) g/dL Hct 38.0 (35-47) % MCV 92.2 (78-100) fL MCH 30.3 (26-32) pg MCHC 32.9 (32-36) g/dL RDW 13.0 (11.5-14.0) % Plt Count 261 (150-450) x10^3/uL MPV 9.8 (7.5-11.0) fL Gran % 36.2 (36.0-66.0) % Immature Gran % (Auto) 0.3 (0.00-0.4) % Nucleat RBC Rel Count 0.0 (0.00-0.1) % Eos # (Auto) 0.01 (0-0.5) x10^3/uL Immature Gran # (Auto) 0.01 (0.00-0.03) x10^3u/L Absolute Lymphs (auto) 1.76 (1.0-4.6) x10^3/uL Absolute Monos (auto) 0.53 (0.0-1.3) x10^3/uL Absolute Nucleated RBC 0.00 (0.00-0.01) x10^3u/L Lymphocytes % 48.2 H (24.0-44.0) % Monocytes % 14.5 H (0.0-12.0) % Eosinophils % 0.3 (0.00-5.0) % Basophils % 0.5 (0.0-0.4) % Absolute Granulocytes 1.32 L (1.4-6.9) x10^3/uL Basophils # 0.02 (0-0.4) x10^3/uL Sodium 137 (137-145) mmol/L Potassium 2.7 L* (3.5-5.1) mmol/L Chloride 101 (98-107) mmol/L Carbon Dioxide 24 (22-30) mmol/L Anion Gap 14.7 (5-15) MEQ/L BUN 19 H (7-17) mg/dL Creatinine 0.99 (0.52-1.04) mg/dL Estimated GFR > 60.0 ML/MIN Glucose 114 H (74-106) mg/dL Lactic Acid 1.2 (0.4-2.0) Calcium 9.7 (8.4-10.2) mg/dL Total Bilirubin 0.40 (0.2-1.3) mg/dL AST 21 (14-36) U/L ALT 13 (0-35) U/L Alkaline Phosphatase 75 (38-126) U/L Troponin I (0.000-0.034) ng/mL NT-Pro-B Natriuret Pep (<300) pg/mL Serum Total Protein 7.9 (6.3-8.2) g/dL Albumin 4.1 (3.5-5.0) g/dL Urine Color (Yellow) Urine Appearance (Clear) Urine pH (4.6-8.0) Ur Specific Bigelow (1.005-1.030) Urine Protein (Negative) Urine Glucose (UA) (Negative) mg/dL Urine Ketones (Negative) Urine Blood (Negative) Urine Nitrite (Negative) Urine Bilirubin (Negative) Urine Urobilinogen (0.2) mg/dL Ur Leukocyte Esterase (Negative) U Hyaline Cast (Auto) (0-2) /LPF Urine Microscopic RBC (0-5) /HPF Urine Microscopic WBC (0-5) /HPF Ur Epithelial Cells (None Seen) /HPF Urine Bacteria (None Seen) /HPF Urine Culture Reflexed (NO) C. difficile Screen (NEGATIVE) C.difficile 027-NAP1-B1 (NEGATIVE) Influenza Type A Ag (NEGATIVE) Influenza Type B Ag (NEGATIVE) RSV (PCR) (NEGATIVE) SARS-CoV-2 (PCR) (NEGATIVE) Group A Strep Antibody (NEGATIVE) 11/29/22 11/29/22 11/29/22 Range/Units 18:49 18:50 18:50 WBC (4.0-10.5) x10^3/uL RBC (4.1-5.4) x10^6/uL Hgb (12.0-16.0) g/dL Hct (35-47) % MCV (78-100) fL MCH (26-32) pg MCHC (32-36) g/dL RDW (11.5-14.0) % Plt Count (150-450) x10^3/uL MPV (7.5-11.0) fL Gran % (36.0-66.0) % Immature Gran % (Auto) (0.00-0.4) % Nucleat RBC Rel Count (0.00-0.1) % Eos # (Auto) (0-0.5) x10^3/uL Immature Gran # (Auto) (0.00-0.03) x10^3u/L Absolute Lymphs (auto) (1.0-4.6) x10^3/uL Absolute Monos (auto) (0.0-1.3) x10^3/uL Absolute Nucleated RBC (0.00-0.01) x10^3u/L Lymphocytes % (24.0-44.0) % Monocytes % (0.0-12.0) % Eosinophils % (0.00-5.0) % Basophils % (0.0-0.4) % Absolute Granulocytes (1.4-6.9) x10^3/uL Basophils # (0-0.4) x10^3/uL Sodium (137-145) mmol/L Potassium (3.5-5.1) mmol/L Chloride (98-107) mmol/L Carbon Dioxide (22-30) mmol/L Anion Gap (5-15) MEQ/L BUN (7-17) mg/dL Creatinine (0.52-1.04) mg/dL Estimated GFR ML/MIN Glucose (74-106) mg/dL Lactic Acid (0.4-2.0) Calcium (8.4-10.2) mg/dL Total Bilirubin (0.2-1.3) mg/dL AST (14-36) U/L ALT (0-35) U/L Alkaline Phosphatase (38-126) U/L Troponin I < 0.012 (0.000-0.034) ng/mL NT-Pro-B Natriuret Pep 53.5 (<300) pg/mL Serum Total Protein (6.3-8.2) g/dL Albumin (3.5-5.0) g/dL Urine Color (Yellow) Urine Appearance (Clear) Urine pH (4.6-8.0) Ur Specific Bigelow (1.005-1.030) Urine Protein (Negative) Urine Glucose (UA) (Negative) mg/dL Urine Ketones (Negative) Urine Blood (Negative) Urine Nitrite (Negative) Urine Bilirubin (Negative) Urine Urobilinogen (0.2) mg/dL Ur Leukocyte Esterase (Negative) U Hyaline Cast (Auto) (0-2) /LPF Urine Microscopic RBC (0-5) /HPF Urine Microscopic WBC (0-5) /HPF Ur Epithelial Cells (None Seen) /HPF Urine Bacteria (None Seen) /HPF Urine Culture Reflexed (NO) C. difficile Screen (NEGATIVE) C.difficile 027-NAP1-B1 (NEGATIVE) Influenza Type A Ag NEGATIVE (NEGATIVE) Influenza Type B Ag NEGATIVE (NEGATIVE) RSV (PCR) NEGATIVE (NEGATIVE) SARS-CoV-2 (PCR) NEGATIVE (NEGATIVE) Group A Strep Antibody NOT DETECTED (NEGATIVE) 11/29/22 11/29/22 11/29/22 Range/Units 20:51 22:37 23:06 WBC (4.0-10.5) x10^3/uL RBC (4.1-5.4) x10^6/uL Hgb (12.0-16.0) g/dL Hct (35-47) % MCV (78-100) fL MCH (26-32) pg MCHC (32-36) g/dL RDW (11.5-14.0) % Plt Count (150-450) x10^3/uL MPV (7.5-11.0) fL Gran % (36.0-66.0) % Immature Gran % (Auto) (0.00-0.4) % Nucleat RBC Rel Count (0.00-0.1) % Eos # (Auto) (0-0.5) x10^3/uL Immature Gran # (Auto) (0.00-0.03) x10^3u/L Absolute Lymphs (auto) (1.0-4.6) x10^3/uL Absolute Monos (auto) (0.0-1.3) x10^3/uL Absolute Nucleated RBC (0.00-0.01) x10^3u/L Lymphocytes % (24.0-44.0) % Monocytes % (0.0-12.0) % Eosinophils % (0.00-5.0) % Basophils % (0.0-0.4) % Absolute Granulocytes (1.4-6.9) x10^3/uL Basophils # (0-0.4) x10^3/uL Sodium (137-145) mmol/L Potassium (3.5-5.1) mmol/L Chloride (98-107) mmol/L Carbon Dioxide (22-30) mmol/L Anion Gap (5-15) MEQ/L BUN (7-17) mg/dL Creatinine (0.52-1.04) mg/dL Estimated GFR ML/MIN Glucose (74-106) mg/dL Lactic Acid (0.4-2.0) Calcium (8.4-10.2) mg/dL Total Bilirubin (0.2-1.3) mg/dL AST (14-36) U/L ALT (0-35) U/L Alkaline Phosphatase (38-126) U/L Troponin I < 0.012 (0.000-0.034) ng/mL NT-Pro-B Natriuret Pep (<300) pg/mL Serum Total Protein (6.3-8.2) g/dL Albumin (3.5-5.0) g/dL Urine Color Yellow (Yellow) Urine Appearance Clear (Clear) Urine pH 6.5 (4.6-8.0) Ur Specific Bigelow 1.010 (1.005-1.030) Urine Protein 30 (Negative) Urine Glucose (UA) Negative (Negative) mg/dL Urine Ketones Negative (Negative) Urine Blood Negative (Negative) Urine Nitrite Negative (Negative) Urine Bilirubin Negative (Negative) Urine Urobilinogen 0.2 (0.2) mg/dL Ur Leukocyte Esterase Trace A (Negative) U Hyaline Cast (Auto) NONE SEEN (0-2) /LPF Urine Microscopic RBC 0-2 (0-5) /HPF Urine Microscopic WBC 0-2 (0-5) /HPF Ur Epithelial Cells Rare (None Seen) /HPF Urine Bacteria None Seen (None Seen) /HPF Urine Culture Reflexed YES (NO) C. difficile Screen NEGATIVE (NEGATIVE) C.difficile 027-NAP1-B1 PRESUMPTIVE NEGATIVE (NEGATIVE) Influenza Type A Ag (NEGATIVE) Influenza Type B Ag (NEGATIVE) RSV (PCR) (NEGATIVE) SARS-CoV-2 (PCR) (NEGATIVE) Group A Strep Antibody (NEGATIVE) Microbiology 11/30/22 03:00 Stool Culture Result 1 - Final Stool Not Reportable Stool Culture Result 2 - Final Not Reportable Stool Culture Result 3 - Final Not Reportable Stool Culture Result 4 - Final Not Reportable Stool Culture Organism Suscept - Final Not Reportable Campylobacter Result 1 - Final Not Reportable Campylobacter Result 2 - Final Not Reportable Campylobactor Result 3 - Final Not Reportable Campylobacter Result 4 - Final Not Reportable Campylobactor Susceptibility - Final Not Reportable - Radiology Impressions Radiology Exams & Impressions: Radiology Procedures Category Date Time Status ABDOMEN AND PELVIS W CONTRAST [CT] Stat Exams 11/29/22 20:16 Completed CHEST 1 VIEW (PORTABLE) Stat Exams 11/29/22 18:39 Taken - Other Procedures and Tests Respiratory Therapy 11/30/22 02:26 Smoking Cessation Education ONCE Assessment/Plan (1) Colitis Current Visit: Yes Status: Acute Assessment & Plan: 1. Enteritis/Colitis: on backdrop of chronic diarrhea. Cdif:-(she did have hx of). Send stool culture and O&P. Start on levaquin and flagyl. 2. Volume depletion: Start LR. REceived 2L in ED 3. Hypokalemia: initiate repletion 4. Chronic diarrhea: etiology not clear. Screen for fecal fat 5. FEN: IVFs. Oral diet 6. MDD: Continue lexapro 7. PX: Lovenox Calvinlotus Rivera MD entire encounter done via telemedicine Code(s): K52.9 - NONINFECTIVE GASTROENTERITIS AND COLITIS, UNSPECIFIED Telemedicine Encounter - Telemedicine Encounter Telemedicine Encounter: The entirety of this encounter was performed via Telemedicine"
[2022-11-30] MEDS: POTASSIUM CHLORIDE 20 mEq IN WATER 100ML 20 MEQ/100 ML BAG IV SCH ×2 (04:06→07:05)
[2022-11-30] MEDS: Lactated Ringers 1,000 ML IV SCH ×2 (04:06→15:35)
[2022-11-30 04:38] LABS: ALBUMIN 3.2 g/dL (3.5-5.0); ALKALINE PHOSPHATASE 57 U/L (38-126); ANION GAP 10.5 MEQ/L (5-15); BLOOD UREA NITROGEN 14 mg/dL (7-17); CHLORIDE 105 mmol/L (98-107); Calcium 8.9 mg/dL (8.4-10.2); Carbon Dioxide 26 mmol/L (22-30); Creatinine 1 0.91 mg/dL (0.52-1.04); EST GLOMERULAR FILTRATION RATE > 60.0 ML/MIN; Glucose 94 mg/dL (74-106); SGOT/AST 16 U/L (14-36); SGPT/ALT 11 U/L (0-35); SODIUM 139 mmol/L (137-145); Total Protein 6.5 g/dL (6.3-8.2)
[2022-11-30 04:44] LABS: Absolute Neutrophil Ct (ANC) 0.96 x10^3/uL (1.4-6.9); BASOPHIL % 0.9 % (0.0-0.4); Basophil (Absolute #) 0.03 x10^3/uL (0-0.4); Eosinophil % 0.6 % (0.00-5.0); Eosinophil (Absolute #) 0.02 x10^3/uL (0-0.5); Hematocrit 33.8 % (35-47); Hemoglobin 11.2 g/dL (12.0-16.0); IMMATURE GRAN # 0.01 x10^3u/L (0.00-0.03); IMMATURE GRAN % 0.3 % (0.00-0.4); Lymphocyte (Absolute #) 1.76 x10^3/uL (1.0-4.6); Lymphocytes % 53.2 % (24.0-44.0); Mean Cell Volume 91.8 fL (78-100); Mean Corpuscular Hemoglobin 30.4 pg (26-32); Mean Corpuscular Hgb Concent. 33.1 g/dL (32-36); Mean Platelet Volume 9.9 fL (7.5-11.0); Monocyte (Absolute #) 0.53 x10^3/uL (0.0-1.3); Platelet Count 244 x10^3/uL (150-450); Red Blood Count 3.68 x10^6/uL (4.1-5.4); Red Cell Distribution Width 13.3 % (11.5-14.0); White Blood Count 3.3 x10^3/uL (4.0-10.5)
[2022-11-30 04:45] LABS: Potassium 2.8 mmol/L (3.5-5.1)
[2022-11-30] MEDS ORDERED: FLAGYL 500 MG IVPB 500 MG/100 ML BAG IV SCH (06:00)
[2022-11-30] MEDS: FLAGYL 500 MG IVPB 500 MG/100 ML BAG IV SCH ×3 (06:20→22:52)
[2022-11-30] MEDS ORDERED: NON-FORMULARY ITEM (Ondansetron Hcl [Zofran] 4 MG Tablet) PO PRN (08:38)
[2022-11-30] MEDS ORDERED: ZOFRAN ODT 4 MG PO PRN (08:40)
--- NOTE | 2022-11-30 08:42 | XRAY ---
Indication: Lethargy. Comparison: October 21, 2016 Portable chest is now clear. Heart and mediastinal structures within normal limits. Bony thorax intact. Impression: Nonacute chest.
[2022-11-30] MEDS ORDERED: MEDICATION INTERVENTION MC SCH (08:45)
--- NOTE | 2022-11-30 08:47 | PCM.NOTE ---
Date and Time: 11/30/22846 Subjective Assessment: still c/o diarrhea - Review of Systems Constitutional: No Fever, No Chills Eyes: No Symptoms Ears, Nose, & Throat: No Symptoms Respiratory: No Cough, No Short Of Breath Cardiac: No Chest Pain, No Edema, No Syncope Abdominal/Gastrointestinal: Diarrhea, No Abdominal Pain, No Nausea, No Vomiting Genitourinary Symptoms: No Dysuria Musculoskeletal: No Back Pain, No Neck Pain Skin: No Rash Neurological: No Dizziness, No Focal Weakness, No Sensory Changes Psychological: No Symptoms Endocrine: No Symptoms Hematologic/Lymphatic: No Symptoms Immunological/Allergic: No Symptoms Objective Exam General Appearance: no apparent distress, alert Neurologic Exam: alert, oriented x 3, cooperative, normal mood/affect, nml cerebellar function, sensation nml, No motor deficits Skin Exam: normal color, warm, dry Eye Exam: PERRL, EOMI, eyes nml inspection Ears, Nose, Throat Exam: normal ENT inspection, pharynx normal, moist mucous membranes Neck Exam: normal inspection, non-tender, supple, full range of motion Respiratory Exam: normal breath sounds, lungs clear, No respiratory distress Cardiovascular Exam: regular rate/rhythm, normal heart sounds Gastrointestinal/Abdomen Exam: soft, No tenderness, No mass Extremity Exam: normal inspection, normal range of motion Back Exam: normal inspection, normal range of motion, No CVA tenderness, No vertebral tenderness Pelvic Exam: deferred Rectal Exam: deferred OBJECTIVE DATA Vital Signs: Vital Signs - 24 hr Temp Pulse Resp BP Pulse Ox 11/30/22 08:00 16 11/30/22 07:51 97.8 F 63 16 114/69 95 11/30/22 04:00 98.3 F 66 16 93/57 96 11/30/22 01:46 97.5 F 73 16 106/66 95 11/30/22 00:14 98 11/30/22 00:00 69 18 135/76 95 11/29/22 22:00 74 20 122/80 96 11/29/22 21:05 75 18 122/85 97 11/29/22 20:00 74 17 113/73 98 11/29/22 19:16 83 18 103/82 11/29/22 18:19 98.4 F 98 H 22 125/96 98 Pain Assessment - Last Documented Pain Intensity 0 Intake and Output: Intake & Output 04/08/0911/28/22 11/29/22 11/30/22 11:59 11:59 11:59 11:59 Intake Total 760 Balance 760 Weight 57.8 kg Lab Results: Lab Results-Last 24 Hours 11/29/22 11/29/22 11/29/22 Range/Units 18:46 18:49 18:49 WBC 3.7 L (4.0-10.5) x10^3/uL RBC 4.12 (4.1-5.4) x10^6/uL Hgb 12.5 (12.0-16.0) g/dL Hct 38.0 (35-47) % MCV 92.2 (78-100) fL MCH 30.3 (26-32) pg MCHC 32.9 (32-36) g/dL RDW 13.0 (11.5-14.0) % Plt Count 261 (150-450) x10^3/uL MPV 9.8 (7.5-11.0) fL Gran % 36.2 (36.0-66.0) % Immature Gran % (Auto) 0.3 (0.00-0.4) % Nucleat RBC Rel Count 0.0 (0.00-0.1) % Eos # (Auto) 0.01 (0-0.5) x10^3/uL Immature Gran # (Auto) 0.01 (0.00-0.03) x10^3u/L Absolute Lymphs (auto) 1.76 (1.0-4.6) x10^3/uL Absolute Monos (auto) 0.53 (0.0-1.3) x10^3/uL Absolute Nucleated RBC 0.00 (0.00-0.01) x10^3u/L Lymphocytes % 48.2 H (24.0-44.0) % Monocytes % 14.5 H (0.0-12.0) % Eosinophils % 0.3 (0.00-5.0) % Basophils % 0.5 (0.0-0.4) % Absolute Granulocytes 1.32 L (1.4-6.9) x10^3/uL Basophils # 0.02 (0-0.4) x10^3/uL Sodium 137 (137-145) mmol/L Potassium 2.7 L* (3.5-5.1) mmol/L Chloride 101 (98-107) mmol/L Carbon Dioxide 24 (22-30) mmol/L Anion Gap 14.7 (5-15) MEQ/L BUN 19 H (7-17) mg/dL Creatinine 0.99 (0.52-1.04) mg/dL Estimated GFR > 60.0 ML/MIN Glucose 114 H (74-106) mg/dL Lactic Acid 1.2 (0.4-2.0) Calcium 9.7 (8.4-10.2) mg/dL Magnesium (1.6-2.3) mg/dL Total Bilirubin 0.40 (0.2-1.3) mg/dL AST 21 (14-36) U/L ALT 13 (0-35) U/L Alkaline Phosphatase 75 (38-126) U/L Troponin I (0.000-0.034) ng/mL NT-Pro-B Natriuret Pep (<300) pg/mL Serum Total Protein 7.9 (6.3-8.2) g/dL Albumin 4.1 (3.5-5.0) g/dL Urine Color (Yellow) Urine Appearance (Clear) Urine pH (4.6-8.0) Ur Specific [place] (1.005-1.030) Urine Protein (Negative) Urine Glucose (UA) (Negative) mg/dL Urine Ketones (Negative) Urine Blood (Negative) Urine Nitrite (Negative) Urine Bilirubin (Negative) Urine Urobilinogen (0.2) mg/dL Ur Leukocyte Esterase (Negative) U Hyaline Cast (Auto) (0-2) /LPF Urine Microscopic RBC (0-5) /HPF Urine Microscopic WBC (0-5) /HPF Ur Epithelial Cells (None Seen) /HPF Urine Bacteria (None Seen) /HPF Urine Culture Reflexed (NO) C. difficile Screen (NEGATIVE) C.difficile 027-NAP1-B1 (NEGATIVE) Influenza Type A Ag (NEGATIVE) Influenza Type B Ag (NEGATIVE) RSV (PCR) (NEGATIVE) SARS-CoV-2 (PCR) (NEGATIVE) Group A Strep Antibody (NEGATIVE) 11/29/22 11/29/22 11/29/22 Range/Units 18:49 18:50 18:50 WBC (4.0-10.5) x10^3/uL RBC (4.1-5.4) x10^6/uL Hgb (12.0-16.0) g/dL Hct (35-47) % MCV (78-100) fL MCH (26-32) pg MCHC (32-36) g/dL RDW (11.5-14.0) % Plt Count (150-450) x10^3/uL MPV (7.5-11.0) fL Gran % (36.0-66.0) % Immature Gran % (Auto) (0.00-0.4) % Nucleat RBC Rel Count (0.00-0.1) % Eos # (Auto) (0-0.5) x10^3/uL Immature Gran # (Auto) (0.00-0.03) x10^3u/L Absolute Lymphs (auto) (1.0-4.6) x10^3/uL Absolute Monos (auto) (0.0-1.3) x10^3/uL Absolute Nucleated RBC (0.00-0.01) x10^3u/L Lymphocytes % (24.0-44.0) % Monocytes % (0.0-12.0) % Eosinophils % (0.00-5.0) % Basophils % (0.0-0.4) % Absolute Granulocytes (1.4-6.9) x10^3/uL Basophils # (0-0.4) x10^3/uL Sodium (137-145) mmol/L Potassium (3.5-5.1) mmol/L Chloride (98-107) mmol/L Carbon Dioxide (22-30) mmol/L Anion Gap (5-15) MEQ/L BUN (7-17) mg/dL Creatinine (0.52-1.04) mg/dL Estimated GFR ML/MIN Glucose (74-106) mg/dL Lactic Acid (0.4-2.0) Calcium (8.4-10.2) mg/dL Magnesium (1.6-2.3) mg/dL Total Bilirubin (0.2-1.3) mg/dL AST (14-36) U/L ALT (0-35) U/L Alkaline Phosphatase (38-126) U/L Troponin I < 0.012 (0.000-0.034) ng/mL NT-Pro-B Natriuret Pep 53.5 (<300) pg/mL Serum Total Protein (6.3-8.2) g/dL Albumin (3.5-5.0) g/dL Urine Color (Yellow) Urine Appearance (Clear) Urine pH (4.6-8.0) Ur Specific [place] (1.005-1.030) Urine Protein (Negative) Urine Glucose (UA) (Negative) mg/dL Urine Ketones (Negative) Urine Blood (Negative) Urine Nitrite (Negative) Urine Bilirubin (Negative) Urine Urobilinogen (0.2) mg/dL Ur Leukocyte Esterase (Negative) U Hyaline Cast (Auto) (0-2) /LPF Urine Microscopic RBC (0-5) /HPF Urine Microscopic WBC (0-5) /HPF Ur Epithelial Cells (None Seen) /HPF Urine Bacteria (None Seen) /HPF Urine Culture Reflexed (NO) C. difficile Screen (NEGATIVE) C.difficile 027-NAP1-B1 (NEGATIVE) Influenza Type A Ag NEGATIVE (NEGATIVE) Influenza Type B Ag NEGATIVE (NEGATIVE) RSV (PCR) NEGATIVE (NEGATIVE) SARS-CoV-2 (PCR) NEGATIVE (NEGATIVE) Group A Strep Antibody NOT DETECTED (NEGATIVE) 11/29/22 11/29/22 11/29/22 Range/Units 20:51 22:37 23:06 WBC (4.0-10.5) x10^3/uL RBC (4.1-5.4) x10^6/uL Hgb (12.0-16.0) g/dL Hct (35-47) % MCV (78-100) fL MCH (26-32) pg MCHC (32-36) g/dL RDW (11.5-14.0) % Plt Count (150-450) x10^3/uL MPV (7.5-11.0) fL Gran % (36.0-66.0) % Immature Gran % (Auto) (0.00-0.4) % Nucleat RBC Rel Count (0.00-0.1) % Eos # (Auto) (0-0.5) x10^3/uL Immature Gran # (Auto) (0.00-0.03) x10^3u/L Absolute Lymphs (auto) (1.0-4.6) x10^3/uL Absolute Monos (auto) (0.0-1.3) x10^3/uL Absolute Nucleated RBC (0.00-0.01) x10^3u/L Lymphocytes % (24.0-44.0) % Monocytes % (0.0-12.0) % Eosinophils % (0.00-5.0) % Basophils % (0.0-0.4) % Absolute Granulocytes (1.4-6.9) x10^3/uL Basophils # (0-0.4) x10^3/uL Sodium (137-145) mmol/L Potassium (3.5-5.1) mmol/L Chloride (98-107) mmol/L Carbon Dioxide (22-30) mmol/L Anion Gap (5-15) MEQ/L BUN (7-17) mg/dL Creatinine (0.52-1.04) mg/dL Estimated GFR ML/MIN Glucose (74-106) mg/dL Lactic Acid (0.4-2.0) Calcium (8.4-10.2) mg/dL Magnesium (1.6-2.3) mg/dL Total Bilirubin (0.2-1.3) mg/dL AST (14-36) U/L ALT (0-35) U/L Alkaline Phosphatase (38-126) U/L Troponin I < 0.012 (0.000-0.034) ng/mL NT-Pro-B Natriuret Pep (<300) pg/mL Serum Total Protein (6.3-8.2) g/dL Albumin (3.5-5.0) g/dL Urine Color Yellow (Yellow) Urine Appearance Clear (Clear) Urine pH 6.5 (4.6-8.0) Ur Specific [place] 1.010 (1.005-1.030) Urine Protein 30 (Negative) Urine Glucose (UA) Negative (Negative) mg/dL Urine Ketones Negative (Negative) Urine Blood Negative (Negative) Urine Nitrite Negative (Negative) Urine Bilirubin Negative (Negative) Urine Urobilinogen 0.2 (0.2) mg/dL Ur Leukocyte Esterase Trace A (Negative) U Hyaline Cast (Auto) NONE SEEN (0-2) /LPF Urine Microscopic RBC 0-2 (0-5) /HPF Urine Microscopic WBC 0-2 (0-5) /HPF Ur Epithelial Cells Rare (None Seen) /HPF Urine Bacteria None Seen (None Seen) /HPF Urine Culture Reflexed YES (NO) C. difficile Screen NEGATIVE (NEGATIVE) C.difficile 027-NAP1-B1 PRESUMPTIVE NEGATIVE (NEGATIVE) Influenza Type A Ag (NEGATIVE) Influenza Type B Ag (NEGATIVE) RSV (PCR) (NEGATIVE) SARS-CoV-2 (PCR) (NEGATIVE) Group A Strep Antibody (NEGATIVE) 11/30/22 11/30/22 11/30/22 Range/Units 04:01 04:01 04:46 WBC 3.3 L (4.0-10.5) x10^3/uL RBC 3.68 L (4.1-5.4) x10^6/uL Hgb 11.2 L (12.0-16.0) g/dL Hct 33.8 L (35-47) % MCV 91.8 (78-100) fL MCH 30.4 (26-32) pg MCHC 33.1 (32-36) g/dL RDW 13.3 (11.5-14.0) % Plt Count 244 (150-450) x10^3/uL MPV 9.9 (7.5-11.0) fL Gran % 29.0 L (36.0-66.0) % Immature Gran % (Auto) 0.3 (0.00-0.4) % Nucleat RBC Rel Count 0.0 (0.00-0.1) % Eos # (Auto) 0.02 (0-0.5) x10^3/uL Immature Gran # (Auto) 0.01 (0.00-0.03) x10^3u/L Absolute Lymphs (auto) 1.76 (1.0-4.6) x10^3/uL Absolute Monos (auto) 0.53 (0.0-1.3) x10^3/uL Absolute Nucleated RBC 0.00 (0.00-0.01) x10^3u/L Lymphocytes % 53.2 H (24.0-44.0) % Monocytes % 16.0 H (0.0-12.0) % Eosinophils % 0.6 (0.00-5.0) % Basophils % 0.9 (0.0-0.4) % Absolute Granulocytes 0.96 L (1.4-6.9) x10^3/uL Basophils # 0.03 (0-0.4) x10^3/uL Sodium 139 (137-145) mmol/L Potassium 2.8 L* (3.5-5.1) mmol/L Chloride 105 (98-107) mmol/L Carbon Dioxide 26 (22-30) mmol/L Anion Gap 10.5 (5-15) MEQ/L BUN 14 (7-17) mg/dL Creatinine 0.91 (0.52-1.04) mg/dL Estimated GFR > 60.0 ML/MIN Glucose 94 (74-106) mg/dL Lactic Acid (0.4-2.0) Calcium 8.9 (8.4-10.2) mg/dL Magnesium 2.2 (1.6-2.3) mg/dL Total Bilirubin 0.30 (0.2-1.3) mg/dL AST 16 (14-36) U/L ALT 11 (0-35) U/L Alkaline Phosphatase 57 (38-126) U/L Troponin I (0.000-0.034) ng/mL NT-Pro-B Natriuret Pep (<300) pg/mL Serum Total Protein 6.5 (6.3-8.2) g/dL Albumin 3.2 L (3.5-5.0) g/dL Urine Color (Yellow) Urine Appearance (Clear) Urine pH (4.6-8.0) Ur Specific [place] (1.005-1.030) Urine Protein (Negative) Urine Glucose (UA) (Negative) mg/dL Urine Ketones (Negative) Urine Blood (Negative) Urine Nitrite (Negative) Urine Bilirubin (Negative) Urine Urobilinogen (0.2) mg/dL Ur Leukocyte Esterase (Negative) U Hyaline Cast (Auto) (0-2) /LPF Urine Microscopic RBC (0-5) /HPF Urine Microscopic WBC (0-5) /HPF Ur Epithelial Cells (None Seen) /HPF Urine Bacteria (None Seen) /HPF Urine Culture Reflexed (NO) C. difficile Screen (NEGATIVE) C.difficile 027-NAP1-B1 (NEGATIVE) Influenza Type A Ag (NEGATIVE) Influenza Type B Ag (NEGATIVE) RSV (PCR) (NEGATIVE) SARS-CoV-2 (PCR) (NEGATIVE) Group A Strep Antibody (NEGATIVE) Radiology Exams: Radiology Procedures Category Date Time Status ABDOMEN AND PELVIS W CONTRAST [CT] Stat Exams 11/29/22 20:16 Completed CHEST 1 VIEW (PORTABLE) Stat Exams 11/29/22 18:39 Completed Assessment/Plan (1) Colitis Current Visit: Yes Status: Acute Assessment & Plan: Chief Complaint Diagnosis Colitis/hypokalemia Admission Date Date 11/30/22 Allergies Allergy/AdvReac Type Severity Reaction Status Date / Time meperidine [From Demerol] Allergy Mild nauseated Verified 09/26/18 14:13 and diarrhea nitrofurantoin AdvReac Severe vomit and Verified 11/29/22 18:26 [From Macrobid] diarrhea sulfamethoxazole AdvReac Severe Nausea and Verified 09/26/18 14:13 [From Bactrim] Vomiting trimethoprim [From Bactrim] AdvReac Severe Nausea and Verified 09/26/18 14:13 Vomiting Vital Signs (Last 24 hours) Temp Pulse Resp BP Pulse Ox 11/30/22 08:00 16 11/30/22 07:51 97.8 F 63 16 114/69 95 11/30/22 04:00 98.3 F 66 16 93/57 96 11/30/22 01:46 97.5 F 73 16 106/66 95 11/30/22 00:14 98 11/30/22 00:00 69 18 135/76 95 11/29/22 22:00 74 20 122/80 96 11/29/22 21:05 75 18 122/85 97 11/29/22 20:00 74 17 113/73 98 11/29/22 19:16 83 18 103/82 11/29/22 18:19 98.4 F 98 H 22 125/96 98 Home Medications Medication Instructions Recorded Confirmed Last Taken Type Melatonin 3 mg PO HS 11/30/22 11/30/22 11/28/22 History Current Medications Generic Name Dose Route Start Last Admin Trade Name Freq PRN Reason Stop Dose Admin Alprazolam 0.25 mg 11/30/22 10:00 Alprazolam 0.25 Mg Tablet PO 12/30/22 09:59 BID [facility] Enoxaparin Sodium 40 mg 11/30/22 10:00 Enoxaparin Sodium 40 Mg/0.4 Ml Syringe SQ 12/30/22 09:59 DAILY [facility] Escitalopram Oxalate 20 mg 11/30/22 10:00 Escitalopram Oxalate 10 Mg Tablet PO 12/30/22 09:59 QAM [facility] Lactated Ringer's 1,000 mls @ 75 mls/hr 11/30/22 02:30 11/30/22 04:06 Lactated Ringers IV 12/30/22 02:29 75 mls/hr .[id number] [facility] Administration Metronidazole 500 mg in 100 mls @ 200 mls/hr 11/30/22 06:00 11/30/22 06:20 Flagyl 500 Mg Ivpb IV 12/30/22 05:59 200 mls/hr Q8HT [facility] Administration Levofloxacin 500 mg 11/30/22 10:00 Levofloxacin 500 Mg Tablet PO 12/30/22 09:59 DAILY [facility] Melatonin 3 mg 11/30/22 22:00 Melatonin 3 Mg Tablet PO 12/30/22 21:59 HS [facility] Miscellaneous Information 1 each 11/30/22 08:45 Medication Intervention 1 Each Each 12/30/22 08:44 .RN TO CHECK [facility] Ondansetron HCl 4 mg 11/30/22 01:34 Ondansetron Hcl 4 Mg/2 Ml Vial IV 12/30/22 01:33 Q6H PRN PRN NAUSEA/VOMITING Ondansetron HCl 4 mg 11/30/22 08:40 Zofran 4 Mg/Udtablet Orally Disintegrating PO 12/30/22 08:39 TID PRN NAUSEA/VOMITING Pantoprazole Sodium 40 mg 11/30/22 10:00 Pantoprazole 40 Mg Vial IV 12/30/22 09:59 Q24H10 [facility] Potassium Chloride 20 meq 11/30/22 10:00 Potassium Chloride Tab 10 Meq Tab PO 12/30/22 09:59 BID [facility] Simvastatin 40 mg 11/30/22 22:00 Simvastatin 20 Mg Tablet PO 12/30/22 21:59 HS [facility] Discontinued Medications Generic Name Dose Route Start Last Admin Trade Name Freq PRN Reason Stop Dose Admin Sodium Chloride 1,000 mls @ 999 mls/hr 11/29/22 18:34 11/29/22 19:59 Sodium Chloride 0.9% 1000 Ml IV 11/29/22 19:34 Infused .Q1H1M STA Infusion Sodium Chloride Confirm 11/29/22 18:36 Sodium Chloride 0.9% 1000 Ml Administered 11/29/22 18:37 Dose 1,000 mls @ ud .ROUTE .STK-MED ONE Sodium Chloride 1,000 mls @ 999 mls/hr 11/29/22 20:16 11/29/22 21:51 Sodium Chloride 0.9% 1000 Ml IV 11/29/22 21:16 Infused .Q1H1M STA Infusion Sodium Chloride Confirm 11/29/22 20:21 Sodium Chloride 0.9% 1000 Ml Administered 11/29/22 20:22 Dose 1,000 mls @ ud .ROUTE .STK-MED ONE Metronidazole 500 mg in 100 mls @ 200 mls/hr 11/30/22 06:00 Flagyl 500 Mg Ivpb IV 12/30/22 05:59 Q6HT [facility] Metronidazole 500 mg in 100 mls @ 200 mls/hr 11/30/22 00:55 11/30/22 01:00 Flagyl 500 Mg Ivpb IV 11/30/22 01:24 200 mls/hr STAT STA 200 mls/hr Administration Sodium Chloride 1,000 mls @ 100 mls/hr 11/30/22 01:34 Sodium Chloride 0.9% 1000 Ml IV 12/30/22 01:33 .Q10H [facility] Potassium Chloride 20 meq in 100 mls @ 50 mls/hr 11/30/22 02:45 11/30/22 07:05 Potassium Chloride 20 Meq In Water 100ml IV 11/30/22 06:44 50 mls/hr Q2H [facility] Administration Ondansetron HCl 4 mg 11/29/22 18:33 11/29/22 18:36 Ondansetron Hcl 4 Mg/2 Ml Vial IV 11/29/22 18:34 4 mg STAT ONE Administration Ondansetron HCl Confirm 11/29/22 18:35 Ondansetron Hcl 4 Mg/2 Ml Vial Administered 11/29/22 18:36 Dose 4 mg .ROUTE .STK-MED ONE Potassium Chloride 40 meq 11/29/22 19:22 11/29/22 20:07 Potassium Chloride Tab 10 Meq Tab PO 11/29/22 19:23 40 meq STAT ONE Administration Potassium Chloride Confirm 11/29/22 20:05 Potassium Chloride Tab 10 Meq Tab Administered 11/29/22 20:06 Dose 40 meq PO .STK-MED ONE Intake & Output (Last 24 hours) 11/27/22 11/28/22 11/29/2223 11:59 11:59 11:59 11:59 Intake Total 760 Balance 760 Weight 57.8 kg Microbiology Results (Last 24 hours) 11/30/22 04:36 Stool Salmonella/Shigella Screen - Pending 11/30/22 04:36 Stool Campylobacter Culture - Pending 11/30/22 04:36 Stool Escherichia coli Shiga Toxins EIA - Pending 11/29/22 20:51 Urine, Void Urine Culture - Pending Laboratory Results (Last 24 hours) 11/30/22 11/30/22 11/30/22 04:46 04:01 04:01 WBC 3.3 L RBC 3.68 L Hgb 11.2 L Hct 33.8 L MCV 91.8 MCH 30.4 MCHC 33.1 RDW 13.3 Plt Count 244 MPV 9.9 Gran % 29.0 L Immature Gran % (Auto) 0.3 Nucleat RBC Rel Count 0.0 Eos # (Auto) 0.02 Immature Gran # (Auto) 0.01 Absolute Lymphs (auto) 1.76 Absolute Monos (auto) 0.53 Absolute Nucleated RBC 0.00 Lymphocytes % 53.2 H Monocytes % 16.0 H Eosinophils % 0.6 Basophils % 0.9 Absolute Granulocytes 0.96 L Basophils # 0.03 Sodium 139 Potassium 2.8 L* Chloride 105 Carbon Dioxide 26 Anion Gap 10.5 BUN 14 Creatinine 0.91 Estimated GFR > 60.0 Glucose 94 Lactic Acid Calcium 8.9 Magnesium 2.2 Total Bilirubin 0.30 AST 16 ALT 11 Alkaline Phosphatase 57 Troponin I NT-Pro-B Natriuret Pep Serum Total Protein 6.5 Albumin 3.2 L Urine Color Urine Appearance Urine pH Ur Specific [place] Urine Protein Urine Glucose (UA) Urine Ketones Urine Blood Urine Nitrite Urine Bilirubin Urine Urobilinogen Ur Leukocyte Esterase U Hyaline Cast (Auto) Urine Microscopic RBC Urine Microscopic WBC Ur Epithelial Cells Urine Bacteria Urine Culture Reflexed C. difficile Screen C.difficile 027-NAP1-B1 Influenza Type A Ag Influenza Type B Ag RSV (PCR) SARS-CoV-2 (PCR) Group A Strep Antibody 11/29/22 11/29/22 11/29/22 23:06 22:37 20:51 WBC RBC Hgb Hct MCV MCH MCHC RDW Plt Count MPV Gran % Immature Gran % (Auto) Nucleat RBC Rel Count Eos # (Auto) Immature Gran # (Auto) Absolute Lymphs (auto) Absolute Monos (auto) Absolute Nucleated RBC Lymphocytes % Monocytes % Eosinophils % Basophils % Absolute Granulocytes Basophils # Sodium Potassium Chloride Carbon Dioxide Anion Gap BUN Creatinine Estimated GFR Glucose Lactic Acid Calcium Magnesium Total Bilirubin AST ALT Alkaline Phosphatase Troponin I < 0.012 NT-Pro-B Natriuret Pep Serum Total Protein Albumin Urine Color Yellow Urine Appearance Clear Urine pH 6.5 Ur Specific [place] 1.010 Urine Protein 30 Urine Glucose (UA) Negative Urine Ketones Negative Urine Blood Negative Urine Nitrite Negative Urine Bilirubin Negative Urine Urobilinogen 0.2 Ur Leukocyte Esterase Trace A U Hyaline Cast (Auto) NONE SEEN Urine Microscopic RBC 0-2 Urine Microscopic WBC 0-2 Ur Epithelial Cells Rare Urine Bacteria None Seen Urine Culture Reflexed YES C. difficile Screen NEGATIVE C.difficile 027-NAP1-B1 PRESUMPTIVE NEGATIVE Influenza Type A Ag Influenza Type B Ag RSV (PCR) SARS-CoV-2 (PCR) Group A Strep Antibody 11/29/22 11/29/22 11/29/22 18:50 18:50 18:49 WBC RBC Hgb Hct MCV MCH MCHC RDW Plt Count MPV Gran % Immature Gran % (Auto) Nucleat RBC Rel Count Eos # (Auto) Immature Gran # (Auto) Absolute Lymphs (auto) Absolute Monos (auto) Absolute Nucleated RBC Lymphocytes % Monocytes % Eosinophils % Basophils % Absolute Granulocytes Basophils # Sodium Potassium Chloride Carbon Dioxide Anion Gap BUN Creatinine Estimated GFR Glucose Lactic Acid Calcium Magnesium Total Bilirubin AST ALT Alkaline Phosphatase Troponin I < 0.012 NT-Pro-B Natriuret Pep 53.5 Serum Total Protein Albumin Urine Color Urine Appearance Urine pH Ur Specific [place] Urine Protein Urine Glucose (UA) Urine Ketones Urine Blood Urine Nitrite Urine Bilirubin Urine Urobilinogen Ur Leukocyte Esterase U Hyaline Cast (Auto) Urine Microscopic RBC Urine Microscopic WBC Ur Epithelial Cells Urine Bacteria Urine Culture Reflexed C. difficile Screen C.difficile 027-NAP1-B1 Influenza Type A Ag NEGATIVE Influenza Type B Ag NEGATIVE RSV (PCR) NEGATIVE SARS-CoV-2 (PCR) NEGATIVE Group A Strep Antibody NOT DETECTED 11/29/22 11/29/22 11/29/22 18:49 18:49 18:46 WBC 3.7 L RBC 4.12 Hgb 12.5 Hct 38.0 MCV 92.2 MCH 30.3 MCHC 32.9 RDW 13.0 Plt Count 261 MPV 9.8 Gran % 36.2 Immature Gran % (Auto) 0.3 Nucleat RBC Rel Count 0.0 Eos # (Auto) 0.01 Immature Gran # (Auto) 0.01 Absolute Lymphs (auto) 1.76 Absolute Monos (auto) 0.53 Absolute Nucleated RBC 0.00 Lymphocytes % 48.2 H Monocytes % 14.5 H Eosinophils % 0.3 Basophils % 0.5 Absolute Granulocytes 1.32 L Basophils # 0.02 Sodium 137 Potassium 2.7 L* Chloride 101 Carbon Dioxide 24 Anion Gap 14.7 BUN 19 H Creatinine 0.99 Estimated GFR > 60.0 Glucose 114 H Lactic Acid 1.2 Calcium 9.7 Magnesium Total Bilirubin 0.40 AST 21 ALT 13 Alkaline Phosphatase 75 Troponin I NT-Pro-B Natriuret Pep Serum Total Protein 7.9 Albumin 4.1 Urine Color Urine Appearance Urine pH Ur Specific [place] Urine Protein Urine Glucose (UA) Urine Ketones Urine Blood Urine Nitrite Urine Bilirubin Urine Urobilinogen Ur Leukocyte Esterase U Hyaline Cast (Auto) Urine Microscopic RBC Urine Microscopic WBC Ur Epithelial Cells Urine Bacteria Urine Culture Reflexed C. difficile Screen C.difficile 027-NAP1-B1 Influenza Type A Ag Influenza Type B Ag RSV (PCR) SARS-CoV-2 (PCR) Group A Strep Antibody Orders (Last 24 hours) Category Date Time Status Bedrest with BRP/BSC ROUTINE Activity 11/30/22 01:34 Active Code Status Order ROUTINE Care 11/30/22 01:34 Active EKG-ER Only STAT Care 11/29/22 22:07 Completed IV Care Q6H Care 11/30/22 01:34 Active Order K Level 2 hours post-inf 2 HRS POST K-INFUSED Care 11/30/22 02:[address] in Observation ROUTINE Care 11/30/22 01:34 Active Telemetry q4h Care 11/30/22 02:34 Active Vital Signs Q4H Care 11/30/22 01:34 Active Infection Control Consult ROUTINE Cons 11/30/22 02:26 Active Faculty Neuropsychologist/Discharge Plan ROUTINE Cons 11/30/22 02:26 Active Clear Liquid Diet 11/30/22 Breakfast Active ABDOMEN AND PELVIS W CONTRAST [CT] Stat Exams 11/29/22 20:16 Completed CHEST 1 VIEW (PORTABLE) Stat Exams 11/29/22 18:39 Completed C.Difficile by PCR Stat Lab 11/29/22 22:37 Completed CBC W DIFF AM.LAB Lab 11/30/22 04:01 Completed CBC W DIFF Stat Lab 11/29/22 18:49 Completed CMP AM.LAB Lab 11/30/22 04:01 Completed CMP Stat Lab 11/29/22 18:49 Completed COVID/FLU/RSV Panel Stat Lab 11/29/22 18:50 Completed CULTURE,URINE Stat Lab 11/29/22 20:51 Received Fecal Fat, Qualitative Routine Lab 11/30/22 04:36 Received Lactic Acid Stat Lab 11/29/22 18:46 Completed MAGNESIUM Stat Lab 11/30/22 04:46 Completed NT PRO BNPII Stat Lab 11/29/22 18:49 Completed Rotavirus Ag, EIA Routine Lab 11/30/22 04:36 Received Stool Culture [MR] Routine Lab 11/30/22 04:36 Received Strep Swab [Group A Strep] Stat Lab 11/29/22 18:50 Completed TROPONIN Q4H Lab 11/29/22 18:49 Completed TROPONIN Q4H Lab 11/29/22 23:06 Completed UA W/RFX UR CULTURE Stat Lab 11/29/22 20:51 Completed ALPRAZolam 0.25 MG [xanAX 0.25 MG] Med 11/30/22 10:00 Active 0.25 mg PO BID Enoxaparin Sodium [Enoxaparin Sodium] Med 11/30/22 10:00 Active 40 mg SQ DAILY Escitalopram Oxalate [Lexapro] Med 11/30/22 10:00 Active 20 mg PO QAM Levofloxacin [Levofloxacin 500 MG Tablet] Med 11/30/22 10:00 Active 500 mg PO DAILY Medication Intervention Med 11/30/22 08:45 Active 1 each MC .RN TO CHECK Melatonin Med 11/30/22 22:00 Active 3 mg PO HS Metronidazole 500 mg Premix [Flagyl 500 mg Ivpb] Med 11/30/22 06:00 Discontinued 500 mg in 100 ml IV Q6HT Metronidazole 500 mg Premix [Flagyl 500 mg Ivpb] Med 11/30/22 06:00 Active 500 mg in 100 ml IV Q8HT Metronidazole 500 mg Premix [Flagyl 500 mg Ivpb] Med 11/30/22 00:55 Discontinued 500 mg in 100 ml IV STAT NaCl 0.9% 1000 ml [Sodium Chloride 0.9% 1000 ML] 1,000 Med 11/29/22 18:36 Discontinued ml .ROUTE UD NaCl 0.9% 1000 ml [Sodium Chloride 0.9% 1000 ML] 1,000 Med 11/29/22 20:21 Discontinued ml .ROUTE UD NaCl 0.9% 1000 ml [Sodium Chloride 0.9% 1000 ML] 1,000 Med 11/30/22 01:34 Discontinued ml IV 100 mls/hr NaCl 0.9% 1000 ml [Sodium Chloride 0.9% 1000 ML] 1,000 Med 11/29/22 18:34 Discontinued ml IV 999 mls/hr NaCl 0.9% 1000 ml [Sodium Chloride 0.9% 1000 ML] 1,000 Med 11/29/22 20:16 Discontinued ml IV 999 mls/hr Ondansetron HCl 4 mg/2 ml [Zofran 4 MG/2 ML VIAL] Med 11/29/22 18:35 Discontinued 4 mg .ROUTE .STK-MED ONE Ondansetron HCl 4 mg/2 ml [Zofran 4 MG/2 ML VIAL] [facility] 11/30/22 01:34 Active 4 mg IV Q6H PRN PRN Ondansetron HCl 4 mg/2 ml [Zofran 4 MG/2 ML VIAL] [facility] 11/29/22 18:33 Discontinued 4 mg IV STAT ONE Ondansetron ODT 4 MG [Zofran Odt 4 mg] [facility] 11/30/22 08:40 Active 4 mg PO TID PRN Pantoprazole 40 mg [Protonix 40 mg IV] [facility] 11/30/22 10:00 Active 40 mg IV Q24H10 Potassium Chloride 20Meq/100Ml [POTASSIUM CHLORIDE 20 Med 11/30/22 02:45 Discontinued mEq IN WATER 100ML] 20 meq in 100 ml IV Q2H Potassium Chloride Tab* [Klor Con] Med 11/30/22 10:00 Active 20 meq PO BID Potassium Chloride Tab* [Klor Con] Med 11/29/22 20:05 Discontinued 40 meq PO .STK-MED ONE Potassium Chloride Tab* [Klor Con] Med 11/29/22 19:22 Discontinued 40 meq PO STAT ONE Ringers Solution,Lactated [Lactated Ringers] 1,000 ml Med 11/30/22 02:30 Active IV 75 mls/hr Simvastatin 20Mg [Zocor 20Mg] Med 11/30/22 22:00 Active 40 mg PO HS Smoking Cessation Education ONCE RT 11/30/22 02:26 Completed Transfer Order Routine Transfer 11/30/22 Completed Code(s): K52.9 - NONINFECTIVE GASTROENTERITIS AND COLITIS, UNSPECIFIED (2) Hypokalemia Current Visit: Yes Status: Acute Code(s): E87.6 - HYPOKALEMIA
[2022-11-30] MEDS: Klor Con PO SCH ×2 (09:19→22:50)
[2022-11-30] MEDS: ENOXAPARIN SODIUM SQ SCH (09:19)
[2022-11-30] MEDS: PROTONIX 40 MG IV IV SCH (09:19)
[2022-11-30] MEDS: Lexapro PO SCH (09:20)
[2022-11-30] MEDS: Levofloxacin 500 MG Tablet PO SCH (09:21)
[2022-11-30] MEDS ORDERED: BIOTIN 1000 MCG PO SCH (10:00)
[2022-11-30] MEDS: xanAX 0.25 MG PO SCH ×2 (10:22→22:52)
[2022-11-30] MEDS: K-LYTE PO SCH ×3 (12:31→16:40)
[2022-11-30] MEDS ORDERED: ZOCOR 20MG PO SCH (22:00)
[2022-11-30] MEDS ORDERED: MELATONIN 3 MG PO SCH (22:00)
[2022-11-30] MEDS ORDERED: NON-FORMULARY ITEM (Rosuvastatin Calcium [Crestor] 20 MG Tablet) PO SCH (22:00)
[2022-11-30] MEDS ORDERED: MELATONIN PO SCH (22:00)
[2022-12-01 06:07] LABS: ANION GAP 10.5 MEQ/L (5-15); BLOOD UREA NITROGEN 12 mg/dL (7-17); CHLORIDE 106 mmol/L (98-107); Calcium 9.3 mg/dL (8.4-10.2); Carbon Dioxide 27 mmol/L (22-30); Creatinine 1 0.82 mg/dL (0.52-1.04); EST GLOMERULAR FILTRATION RATE > 60.0 ML/MIN; Glucose 94 mg/dL (74-106); Potassium 3.3 mmol/L (3.5-5.1); SODIUM 141 mmol/L (137-145)
[2022-12-01] MEDS: FLAGYL 500 MG IVPB 500 MG/100 ML BAG IV SCH (06:17)
[2022-12-01 07:05] VITALS: O2SAT 97
[2022-12-01] MEDS: Levofloxacin 500 MG Tablet PO SCH (08:49)
[2022-12-01] MEDS: xanAX 0.25 MG PO SCH ×2 (08:49→08:51)
[2022-12-01] MEDS: PROTONIX 40 MG IV IV SCH (08:49)
[2022-12-01] MEDS ORDERED: K-LYTE PO ONE (08:49)
[2022-12-01] MEDS: Lexapro PO SCH (08:49)
[2022-12-01] MEDS: Klor Con PO SCH (08:49)
[2022-12-01] MEDS: ENOXAPARIN SODIUM SQ SCH ×2 (08:50→09:22)
[2022-12-01 11:52] VITALS: BP 104/73; PULSE 79
--- NOTE | 2022-12-01 13:01 | PCM.DS ---
Discharge Summary Date of Admission: 11/30/22 01:32 Admitting Physician: SKYE RAMÍREZ MD Primary Care Provider: ALLISON REEDER Allergies Allergies meperidine [From Demerol] Allergy (Mild, Verified 09/26/18 14:13) nauseated and diarrhea nitrofurantoin [From Macrobid] Adverse Reaction (Severe, Verified 11/29/22 18:26) vomit and diarrhea sulfamethoxazole [From Bactrim] Adverse Reaction (Severe, Verified 09/26/18 14:13) Nausea and Vomiting MADE HER VERY SICK trimethoprim [From Bactrim] Adverse Reaction (Severe, Verified 09/26/18 14:13) Nausea and Vomiting MADE HER VERY SICK Hospital Summary - Hospital Course Hospital Course: Chief Complaint Diagnosis Colitis/hypokalemia Admission Date Date 11/30/22 Allergies Allergy/AdvReac Type Severity Reaction Status Date / Time meperidine [From Demerol] Allergy Mild nauseated Verified 09/26/18 14:13 and diarrhea nitrofurantoin AdvReac Severe vomit and Verified 11/29/22 18:26 [From Macrobid] diarrhea sulfamethoxazole AdvReac Severe Nausea and Verified 09/26/18 14:13 [From Bactrim] Vomiting trimethoprim [From Bactrim] AdvReac Severe Nausea and Verified 09/26/18 14:13 Vomiting Vital Signs (Last 24 hours) Temp Pulse Resp BP Pulse Ox 12/01/22 12:00 16 12/01/22 11:51 97.9 F 79 16 104/73 97 12/01/22 08:00 16 12/01/22 07:05 98.1 F 64 16 105/62 97 12/01/22 04:00 15 12/01/22 03:51 97.9 F 66 15 94/60 98 12/01/22 00:00 19 11/30/22 23:42 98.1 F 75 19 116/72 94 L 11/30/22 20:00 97.9 F 74 15 96/60 95 11/30/22 15:45 98.5 F 65 16 97/61 99 Home Medications Medication Instructions Recorded Confirmed Last Taken Type Melatonin 3 mg PO HS 11/30/22 11/30/22 11/28/22 History Current Medications Generic Name Dose Route Start Last Admin Trade Name Freq PRN Reason Stop Dose Admin Alprazolam 0.25 mg 11/30/22 10:00 12/01/22 08:51 Alprazolam 0.25 Mg Tablet PO 12/30/22 09:59 Not Given BID WILLIAN Enoxaparin Sodium 40 mg 11/30/22 10:00 12/01/22 09:22 Enoxaparin Sodium 40 Mg/0.4 Ml Syringe SQ 12/30/22 09:59 Not Given DAILY WILLIAN Escitalopram Oxalate 20 mg 11/30/22 10:00 12/01/22 08:49 Escitalopram Oxalate 10 Mg Tablet PO 12/30/22 09:59 20 mg QAM WILLIAN Administration Lactated Ringer's 1,000 mls @ 75 mls/hr 11/30/22 02:30 11/30/22 15:35 Lactated Ringers IV 12/30/22 02:29 75 mls/hr .[id number] WILLIAN Administration Metronidazole 500 mg in 100 mls @ 200 mls/hr 11/30/22 06:00 12/01/22 06:17 Flagyl 500 Mg Ivpb IV 12/30/22 05:59 200 mls/hr Q8HT WILLIAN Administration Levofloxacin 500 mg 11/30/22 10:00 12/01/22 08:49 Levofloxacin 500 Mg Tablet PO 12/30/22 09:59 500 mg DAILY WILLIAN Administration Melatonin 3 mg 11/30/22 22:00 11/30/22 22:53 Melatonin 3 Mg Tablet PO 12/30/22 21:59 3 mg HS WILLIAN Administration Miscellaneous Information 1 each 11/30/22 08:45 Medication Intervention 1 Each Each 12/30/22 08:44 .RN TO CHECK WILLIAN Ondansetron HCl 4 mg 11/30/22 01:34 Ondansetron Hcl 4 Mg/2 Ml Vial IV 12/30/22 01:33 Q6H PRN PRN NAUSEA/VOMITING Ondansetron HCl 4 mg 11/30/22 08:40 Zofran 4 Mg/Udtablet Orally Disintegrating PO 12/30/22 08:39 TID PRN NAUSEA/VOMITING Pantoprazole Sodium 40 mg 11/30/22 10:00 12/01/22 08:49 Pantoprazole 40 Mg Vial IV 12/30/22 09:59 40 mg Q24H10 WILLIAN Administration Potassium Chloride 20 meq 11/30/22 10:00 12/01/22 08:49 Potassium Chloride Tab 10 Meq Tab PO 12/30/22 09:59 20 meq BID WILLIAN Administration Simvastatin 40 mg 11/30/22 22:00 11/30/22 22:53 Simvastatin 20 Mg Tablet PO 12/30/22 21:59 40 mg HS WILLIAN Administration Discontinued Medications Generic Name Dose Route Start Last Admin Trade Name Eduar PRN Reason Stop Dose Admin Sodium Chloride 1,000 mls @ 999 mls/hr 11/29/22 18:34 11/29/22 19:59 Sodium Chloride 0.9% 1000 Ml IV 11/29/22 19:34 Infused .Q1H1M STA Infusion Sodium Chloride Confirm 11/29/22 18:36 Sodium Chloride 0.9% 1000 Ml Administered 11/29/22 18:37 Dose 1,000 mls @ ud .ROUTE .STK-MED ONE Sodium Chloride 1,000 mls @ 999 mls/hr 11/29/22 20:16 11/29/22 21:51 Sodium Chloride 0.9% 1000 Ml IV 11/29/22 21:16 Infused .Q1H1M STA Infusion Sodium Chloride Confirm 11/29/22 20:21 Sodium Chloride 0.9% 1000 Ml Administered 11/29/22 20:22 Dose 1,000 mls @ ud .ROUTE .STK-MED ONE Metronidazole 500 mg in 100 mls @ 200 mls/hr 11/30/22 06:00 Flagyl 500 Mg Ivpb IV 12/30/22 05:59 Q6HT WILLIAN Metronidazole 500 mg in 100 mls @ 200 mls/hr 11/30/22 00:55 11/30/22 01:00 Flagyl 500 Mg Ivpb IV 11/30/22 01:24 200 mls/hr STAT STA 200 mls/hr Administration Sodium Chloride 1,000 mls @ 100 mls/hr 11/30/22 01:34 Sodium Chloride 0.9% 1000 Ml IV 12/30/22 01:33 .Q10H WILLIAN Potassium Chloride 20 meq in 100 mls @ 50 mls/hr 11/30/22 02:45 11/30/22 07:05 Potassium Chloride 20 Meq In Water 100ml IV 11/30/22 06:44 50 mls/hr Q2H WILLIAN Administration Ondansetron HCl 4 mg 11/29/22 18:33 11/29/22 18:36 Ondansetron Hcl 4 Mg/2 Ml Vial IV 11/29/22 18:34 4 mg STAT ONE Administration Ondansetron HCl Confirm 11/29/22 18:35 Ondansetron Hcl 4 Mg/2 Ml Vial Administered 11/29/22 18:36 Dose 4 mg .ROUTE .STK-MED ONE Potassium Bicarbonate 25 meq 11/30/22 12:30 11/30/22 16:40 Potassium Bicarbonate 25 Meq Tab PO 11/30/22 16:31 25 meq Q2H WILLIAN Administration Potassium Bicarbonate 50 meq 12/01/22 08:49 12/01/22 09:10 Potassium Bicarbonate 25 Meq Tab PO 12/01/22 08:50 50 meq STAT ONE Administration Potassium Chloride 40 meq 11/29/22 19:22 11/29/22 20:07 Potassium Chloride Tab 10 Meq Tab PO 11/29/22 19:23 40 meq STAT ONE Administration Potassium Chloride Confirm 11/29/22 20:05 Potassium Chloride Tab 10 Meq Tab Administered 11/29/22 20:06 Dose 40 meq PO .STK-MED ONE Intake & Output (Last 24 hours) 11/29/22 11/30/22 12/01/22 12/02/22 11:59 11:59 11:59 11:59 Intake Total 760 2661 Output Total 5 Balance 760 2656 Weight 57.8 kg Microbiology Results (Last 24 hours) 11/29/22 20:51 Urine, Void Urine Culture - Final NO GROWTH Laboratory Results (Last 24 hours) 12/01/22 12/01/22 12/01/22 11:00 05:26 05:26 Sodium 141 Potassium 4.1 D 3.3 L Chloride 106 Carbon Dioxide 27 Anion Gap 10.5 BUN 12 Creatinine 0.82 Estimated GFR > 60.0 Glucose 94 Calcium 9.3 Magnesium 2.1 11/30/22 11/30/22 20:32 16:11 Sodium Potassium 3.1 L 3.4 L Chloride Carbon Dioxide Anion Gap BUN Creatinine Estimated GFR Glucose Calcium Magnesium Orders (Last 24 hours) Category Date Time Status Soft Diet Diet 11/30/22 Dinner Active BMP Routine Lab 12/01/22 05:26 Completed MAGNESIUM AM.LAB Lab 12/01/22 05:26 Completed Potassium (Lab Test) [Potassium] Routine Lab 12/01/22 11:00 Completed Potassium Q4H Lab 11/30/22 16:11 Completed Potassium Q4H Lab 11/30/22 20:32 Completed Melatonin Med 11/30/22 22:00 Active 3 mg PO HS Potassium Bicarbonate [K-Lyte ] Med 11/30/22 12:30 Discontinued 25 meq PO Q2H Potassium Bicarbonate [K-Lyte ] Med 12/01/22 08:49 Discontinued 50 meq PO STAT ONE Simvastatin 20Mg [Zocor 20Mg] Med 11/30/22 22:00 Active 40 mg PO HS - Vitals & Intake/Output Vital Signs: Vital Signs Temperature 97.9 F 12/01/22 11:51 Pulse Rate 79 12/01/22 11:51 Respiratory Rate 16 12/01/22 12:00 Blood Pressure 104/73 12/01/22 11:51 O2 Sat by Pulse Oximetry 97 12/01/22 11:51 Intake & Output: Intake & Output 11/29/22 11/30/22 12/01/22 12/02/22 11:59 11:59 11:59 11:59 Intake Total 760 2661 Output Total 5 Balance 760 2656 Weight 57.8 kg - Lab Result Diagrams: 11/30/22 04:01 12/01/22 11:00 Lab Results-Last 24 Hrs: Lab Results-Last 24 Hours 11/30/22 11/30/22 12/01/22 Range/Units 16:11 20:32 05:26 Sodium (137-145) mmol/L Potassium 3.4 L 3.1 L (3.5-5.1) mmol/L Chloride (98-107) mmol/L Carbon Dioxide (22-30) mmol/L Anion Gap (5-15) MEQ/L BUN (7-17) mg/dL Creatinine (0.52-1.04) mg/dL Estimated GFR ML/MIN Glucose (74-106) mg/dL Calcium (8.4-10.2) mg/dL Magnesium 2.1 (1.6-2.3) mg/dL 12/01/22 12/01/22 Range/Units 05:26 11:00 Sodium 141 (137-145) mmol/L Potassium 3.3 L 4.1 D (3.5-5.1) mmol/L Chloride 106 (98-107) mmol/L Carbon Dioxide 27 (22-30) mmol/L Anion Gap 10.5 (5-15) MEQ/L BUN 12 (7-17) mg/dL Creatinine 0.82 (0.52-1.04) mg/dL Estimated GFR > 60.0 ML/MIN Glucose 94 (74-106) mg/dL Calcium 9.3 (8.4-10.2) mg/dL Magnesium (1.6-2.3) mg/dL Micro Results-Entire Visit: Microbiology 11/29/22 20:51 Urine Culture - Final Urine, Void NO GROWTH - Radiology Exams Ordered Rad Exams-Entire Visit: Radiology Procedures Category Date Time Status ABDOMEN AND PELVIS W CONTRAST [CT] Stat Exams 11/29/22 20:16 Completed CHEST 1 VIEW (PORTABLE) Stat Exams 11/29/22 18:39 Completed - Procedures and Test Procedures and Tests throughout Hospitalization: Therapy Orders & Screens 11/30/22 02:26 Smoking Cessation Education ONCE Comment: Diagnosis: Colitis/hypokalemia Smoking Status: Current some day smoker How long have you smoked: 44 yrs Have you smoked in the past 12 months: Yes Approximately how many cigarettes per day: 20 Do you dip or chew tobacco: No If,Former Smoker,when did you quit: 1 month ago Discharge Exam General Appearance: no apparent distress, alert Neurologic Exam: alert, oriented x 3, cooperative, normal mood/affect, nml cerebellar function, sensation nml, No motor deficits Eye Exam: PERRL, EOMI, eyes nml inspection Ears, Nose, Throat Exam: normal ENT inspection, pharynx normal, moist mucous membranes Neck Exam: normal inspection, non-tender, supple, full range of motion Respiratory Exam: normal breath sounds, lungs clear, No respiratory distress Cardiovascular Exam: regular rate/rhythm, normal heart sounds Gastrointestinal/Abdomen Exam: soft, No tenderness, No mass Pelvic Exam: deferred Rectal Exam: deferred Back Exam: normal inspection, normal range of motion, No CVA tenderness, No vertebral tenderness Extremity Exam: normal inspection, normal range of motion Skin Exam: normal color, warm, dry Final Diagnosis/Problem List - Final Discharge Diagnosis/Problem (1) Colitis Current Visit: Yes Status: Resolved Code(s): K52.9 - NONINFECTIVE GASTRO ENTERITIS AND COLITIS, UNSPECIFIED (2) Hypokalemia Current Visit: Yes Status: Resolved Code(s): E87.6 - HYPOKALEMIA - Discharge Discharge Date: 12/01/22 Disposition: Home, Self-Care Condition: Stable Prescriptions: Continue Escitalopram Oxalate [Lexapro] 20 mg PO DAILY Rosuvastatin Calcium [Crestor] 20 mg PO HS ALPRAZolam 0.25 MG [xanAX 0.25 MG] 0.25 mg PO BID Potassium Chloride Tab* [Klor Con] 20 meq PO BID Biotin 1,000 mcg PO DAILY ondansetron HCL [Zofran] 4 mg PO TID PRN #10 tablet PRN Reason: Nausea/Vomiting Melatonin 3 mg PO HS Additional Instructions: Discharge/Care Plan NAN ROLAND was seen and discharged from hospital on 12/01/22 . The patient was counseled regarding Diagnosis,Lab results, Imaging studies, need for follow up and when to return to the Emergency Room. Prescriptions given: Discharge Note I have spoken with the patient and/or caregivers. I have explained the patient's condition, diagnosis and treatment plan based on the information available to me at this time. I have answered the patient's and/or caregiver's questions and addressed any concerns. The patient and/or caregivers have as good understanding of the patient's diagnosis, condition and treatment plan as can be expected at this point. The vital signs have been stable. The patient's condition is stable and appropriate for discharge from the emergency department. The patient will pursue further outpatient evaluation with the primary care physician or other designated or consulting physician as outlined in the discharge instructions. The patient and/or caregivers are agreeable to this plan of care and follow-up instructions have been explained in detail. The patient and/or caregivers have received these instruction. The patient/and or caregivers are aware that any significant change in condition or worsening of symptoms should prompt an immediate return to this or the closest emergency department or call 911. Follow up with: ALLISON REEDER MD [Primary Care Provider] -
[2022-12-02 15:22] LABS: Rotavirus Ag, EIA Negative (Negative)
== END 2022-12-01 14:15 | disposition home or self-care (01) ==
LOC: ED 18:05 → MED SURG 11-30 01:32
PROVIDERS: ADMIT Internal Medicine Critical Care Medicine; ATTEND Family Medicine
DX: K52.9 Noninfective gastroenteritis and colitis, unspecified (principal); E87.6 Hypokalemia; E78.5 Hyperlipidemia, unspecified; Z79.899 Other long term (current) drug therapy; Z20.828 Contact with and (suspected) exposure to other viral communicable diseases; Z72.0 Tobacco use
CPT/HCPCS: 0241U; 36415; 71045; 74177; 80048; 80053; 81001; 82705; 83605; 83735; 83880; 84132; 84484; 85025; 87045; 87046; 87086; 87425; 87493; 87651; 93005; 96360; 96361; 96365; 96374; 96375; 99284; 99291; 93268; J1650; J2405; J3480; A9270-GY; G0378

== ENCOUNTER 2023-02-03 04:39 | Observation (INO) | payer BC, MEDICARE ==
[2023-02-03] MEDS ORDERED: Zofran 4 MG/2 ML VIAL IV ONE (04:51)
[2023-02-03] MEDS ORDERED: MORPHINE SULFATE 4 MG INJ IV ONE (04:51)
[2023-02-03] MEDS ORDERED: BABY ASPIRIN 81 MG CHEW PO ONE (04:51)
[2023-02-03] MEDS ORDERED: MORPHINE SULFATE 4 MG INJ ONE (05:02)
--- NOTE | 2023-02-03 05:02 | ERPHSYRPT ---
<ELVI SNOWDEN - Last Filed: 02/03/23 08:41> - History of Present Illness Time Seen by Provider: 02/03/23 04:49 Allergies/Adverse Reactions: meperidine [From Demerol] Allergy (Mild, Verified 09/26/18 14:13) nauseated and diarrhea nitrofurantoin [From Macrobid] Adverse Reaction (Severe, Verified 11/29/22 18:26) vomit and diarrhea sulfamethoxazole [From Bactrim] Adverse Reaction (Severe, Verified 09/26/18 14:13) Nausea and Vomiting MADE HER VERY SICK trimethoprim [From Bactrim] Adverse Reaction (Severe, Verified 09/26/18 14:13) Nausea and Vomiting MADE HER VERY SICK hydromorphone [From Dilaudid] Adverse Reaction (Verified 02/03/23 04:47) Home Medications: Escitalopram Oxalate [Lexapro] 20 mg PO DAILY 07/06/14 [History] Rosuvastatin Calcium [Crestor] 20 mg PO HS 03/18/17 [History] ALPRAZolam 0.25 MG [xanAX 0.25 MG] 0.5 mg PO TIDPRN PRN 09/16/18 [History] Biotin 1,000 mcg PO DAILY 09/24/18 [History] Potassium Chloride Tab* [Klor Con] 20 meq PO BID 09/24/18 [History] Melatonin 3 mg PO HS 11/30/22 [History] - Progress Discussed with Dr.: Other (Dr. Barillas hospitalist was contacted and Ms. Carroll will be admitted to the hospital with pneumonia.) Will see patient in: hospital (observation) Medical Desision Making - Independent Historian Additional History obtained from: Spouse - Discussion of managment Care discussed with:: specialist (Hospitalist Dr. Barillas) Reviewed:: Test results Agreed on:: decision to admit Will see patient: in hospital - Diagnostic Testing Diagnostic test were ordered, analyzed, and reviewed by me: Yes Radiological Interpretation: Reviewed by me - Risk of complications The pt has a high risk of morbidity or mortality based on: Decision regarding hospitilization or escalation of hosp level of care - Departure Departure Disposition: Observation Clinical Impression: Bilateral pneumonia Condition: Fair Critical Care Time: No <ESTIVEN CASTREJON - Last Filed: 06/22/23 14:09> - History of Present Illness Historian: patient Exam Limitations: no limitations Patient Subjective Stated Complaint: Pt reports she was woken up at 2am this morning with right sided chest pain, nausea, vomiting and diarrhea. Pain was not relieved by the aspirin given by EMS. Triage Nursing Assessment: Pt alert and oriented x3. No apparent respiratory distress. Arrived via ambulance. Skin w/p/d. S1 and S2 auscultated. No obvious deformities/contusions to chest. Physician History: 67-year-old female with history of ITP, depression, hyperlipidemia, chronic diarrhea presented to the ER via EMS with chief complaint of right-sided chest pain waking her up from sleep. Moderate intensity sharp, hurts to take a deep breath with associated nausea and vomiting without abdominal pain. Patient reports getting short of breath with activity. Denies any history of coronary artery disease/CHF. She is given aspirin in route to the ER with no significant relief. EKG showed sinus rhythm with no acute ischemic changes Timing/Duration: hour(s) (1), sudden Activities at Onset: sleep Quality: sharpness Chest Pain Radiation: no radiation Severity of Pain-Max: moderate Severity of Pain-Current: moderate Modifying Factors: Worsens With: coughing, movement Associated Symptoms: nausea, vomiting, shortness of breath, No palpitations Prior Chest Pain/Cardiac Workup: no prior chest pain Nitro Today/Relief: no nitro taken today Aspirin Treatment Today: provided by EMS Hx Tetanus, Diphtheria Vaccination/Date Given: No Hx Influenza Vaccination/Date Given: No Hx Pneumococcal Vaccination/Date Given: Yes Travel Risk - International Travel Have you traveled outside of the country in past 3 weeks: No - Coronavirus Screening Are you exhibiting any of the following symptoms?: Yes Symptoms: Vomiting/Diarrhea Close contact with a COVID-19 positive Pt in past 14-21 Days: No - Vaccine Status Have you recieved a Covid-19 vaccination: Yes 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[employer] Machine [employer]: [employer] - Vaccination Dates Comment: pt has had covid - Review of Systems Constitutional: No Symptoms Eyes: No Symptoms Ears, Nose, & Throat: No Symptoms Respiratory: Dyspnea Cardiac: Chest Pain Abdominal/Gastrointestinal: Nausea, Vomiting, Diarrhea Genitourinary Symptoms: No Symptoms Musculoskeletal: No Symptoms Skin: No Symptoms Neurological: No Symptoms Psychological: Anxiety Endocrine: No Symptoms Hematologic/Lymphatic: No Symptoms Immunological/Allergic: No Symptoms - Past Medical History Pertinent Past Medical History: Yes Neurological History: No Pertinent History ENT History: No Pertinent History Cardiac History: High Cholesterol Respiratory History: No Pertinent History Endocrine Medical History: No Pertinent History Musculoskeletal History: No Pertinent History GI Medical History: No Pertinent History History: Other Psycho-Social History: Depression, Eating Disorders Female Reproductive Disorders: No Pertinent History Other Medical History: ANXIETY/DEPRESSION. hypokalemia. c diff. sepsis - Past Surgical History Past Surgical History: Yes Neuro Surgical History: No Pertinent History Cardiac: No Pertinent History Respiratory: No Pertinent History Gastrointestinal: Appendectomy Genitourinary: No Pertinent History Musculoskeletal: No Pertinent History Female Surgical History: Dilation & Curettage Other Surgical History: right breast biopsy-benign - Social History Smoking Status: Current every day smoker How long have you smoked: 44 yrs Exposure to second hand smoke: Yes Drug Use: none Patient Lives Alone: No - Nursing Vital Signs Nursing Vital Signs: Initial Vital Signs Temperature 97.4 F 02/03/23 04:45 Pulse Rate 76 02/03/23 04:45 Respiratory Rate 19 02/03/23 04:45 Blood Pressure 109/78 02/03/23 04:45 O2 Sat by Pulse Oximetry 97 02/03/23 04:45 Pain Scale Pain Intensity 2 - Physical Exam General Appearance: no apparent distress, alert Eye Exam: PERRL/EOMI Ears, Nose, Throat Exam: normal ENT inspection Neck Exam: normal inspection, non-tender, supple, full range of motion Respiratory Exam: normal breath sounds, lungs clear Cardiovascular Exam: regular rate/rhythm, normal heart sounds Gastrointestinal/Abdomen Exam: soft, normal bowel sounds, No tenderness Back Exam: normal inspection, normal range of motion Extremity Exam: normal inspection, normal range of motion Neurologic Exam: alert, oriented x 3, cooperative, psych assistant II-XII nml as tested Skin Exam: normal color, warm SpO2 Interpretation: normal SpO2: 97 O2 Delivery: Room Air Ordered Tests: Medication Summary Discontinued Medications Generic Name Dose Route Start Last Admin Trade Name Freq PRN Reason Stop Dose Admin Acetaminophen 650 mg 02/03/23 17:39 02/03/23 17:44 Acetaminophen 325 Mg Tablet PO 03/05/23 17:38 650 mg Q4H PRN PRN Administration PAIN AND/OR FEVER Hydrocodone Bitart/Acetaminophen 1 tab 02/04/23 09:06 Hydrocodone/Apap 5/325 1 Tab Tablet PO 02/09/23 09:05 Q4H PRN PRN SEVERE PAIN Albuterol/Ipratropium 3 ml 02/03/23 05:30 02/03/23 05:40 Ipratropium/Albuterol Sulfate 3 Ml Ampul.Neb IH 02/03/23 05:31 3 ml STAT ONE Administration Albuterol/Ipratropium Confirm 02/03/23 05:37 Ipratropium/Albuterol Sulfate 3 Ml Ampul.Neb Administered 02/03/23 05:38 Dose 3 ml IH .STK-MED ONE Alprazolam 0.5 mg 02/03/23 16:00 02/04/23 14:40 Alprazolam 0.25 Mg Tablet PO 03/05/23 15:59 Not Given TID WILLIAN Alprazolam 0.5 mg 02/04/23 22:00 02/05/23 10:51 Alprazolam 0.5 Mg Tablet PO 03/06/23 21:59 0.5 mg TID WILLIAN Administration Alprazolam 0.5 mg 02/05/23 12:00 Alprazolam 0.5 Mg Tablet PO 03/07/23 11:59 TIDPRN PRN ANXIETY Aspirin 324 mg 02/03/23 04:51 02/03/23 05:03 Aspirin 81 Mg Tab.Chew PO 02/03/23 04:52 Not Given STAT ONE Methylprednisolone Sodium 0 mg 02/04/23 10:30 02/05/23 10:51 Succinate 60 mg/ Sterile Water IV 03/06/23 10:29 60 mg 2 ml DAILY WILLIAN Administration Escitalopram Oxalate 20 mg 02/03/23 16:00 02/05/23 10:52 Escitalopram Oxalate 10 Mg Tablet PO 03/05/23 15:59 20 mg DAILY WILLIAN Administration Sodium Chloride 1,000 mls @ 100 mls/hr 02/03/23 09:00 02/03/23 09:52 Sodium Chloride 0.9% 1000 Ml IV 03/05/23 08:59 100 mls/hr .Q10H WILLIAN Administration Ceftriaxone Sodium/Dextrose 1 g in 50 mls @ 100 mls/hr 02/03/23 10:00 02/03/23 09:51 Rocephin 1 Gm-D5w 50 Ml Bag IV 02/06/23 09:59 Infused Q24H10 WILLIAN Infusion Azithromycin 500 mg in 250 mls @ 250 mls/hr 02/03/23 10:00 02/03/23 09:53 Zithromax 500 Mg/ 250 Ml Nacl Premix IV 03/05/23 09:59 250 mls/hr Q24H10 WILLIAN 250 mls/hr Administration Azithromycin Confirm 02/03/23 09:32 Zithromax 500 Mg/ 250 Ml Nacl Premix Administered 02/03/23 09:33 Dose 500 mg in 250 mls @ ud IV .STK-MED ONE Azithromycin 500 mg in 250 mls @ 250 mls/hr 02/04/23 10:00 02/05/23 10:51 Zithromax 500 Mg/ 250 Ml Nacl Premix IV 03/06/23 09:59 250 mls/hr Q24H10 WILLIAN Administration Ceftriaxone Sodium/Dextrose 1 g in 50 mls @ 100 mls/hr 02/04/23 10:00 02/05/23 10:51 Rocephin 1 Gm-D5w 50 Ml Bag IV 02/07/23 09:59 100 mls/hr Q24H10 WILLIAN Administration Sodium Chloride 1,000 mls @ 100 mls/hr 02/03/23 11:30 02/03/23 20:21 Sodium Chloride 0.9% 1000 Ml IV 03/05/23 11:29 100 mls/hr .Q10H WILLIAN Administration Melatonin 3 mg 02/03/23 22:00 02/04/23 21:50 Melatonin 3 Mg Tablet PO 03/05/23 21:59 3 mg HS WILLIAN Administration Miscellaneous Information 1 each 02/03/23 15:30 Medication Intervention 1 Each Each 03/05/23 15:29 .RN TO CHECK WILLIAN Morphine Sulfate 4 mg 02/03/23 04:51 02/03/23 05:03 Morphine Sulfate 4 Mg/Ml Injection IV 02/03/23 04:52 4 mg STAT ONE Administration Morphine Sulfate Confirm 02/03/23 05:02 Morphine Sulfate 4 Mg/Ml Injection Administered 02/03/23 05:03 Dose 4 mg .ROUTE .STK-MED ONE Morphine Sulfate 4 mg 02/03/23 08:49 Morphine Sulfate 4 Mg/Ml Injection IV 02/08/23 08:48 Q4H PRN PRN PAIN Morphine Sulfate 4 mg 02/03/23 11:25 02/04/23 08:44 Morphine Sulfate 4 Mg/Ml Injection IV 02/08/23 11:24 4 mg Q4H PRN PRN Administration PAIN Ondansetron HCl 4 mg 02/03/23 04:51 02/03/23 07:52 Ondansetron Hcl 4 Mg/2 Ml Vial IV 02/03/23 04:52 Not Given STAT ONE Ondansetron HCl 4 mg 02/03/23 08:49 Ondansetron Hcl 4 Mg/2 Ml Vial IV 03/05/23 08:48 Q6H PRN PRN NAUSEA/VOMITING Ondansetron HCl 4 mg 02/03/23 11:26 Ondansetron Hcl 4 Mg/2 Ml Vial IV 03/05/23 11:25 Q6H PRN PRN NAUSEA/VOMITING Potassium Chloride 20 meq 02/03/23 22:00 02/05/23 10:52 Potassium Chloride Tab 10 Meq Tab PO 03/05/23 21:59 20 meq BID WILLIAN Administration Potassium Chloride 20 meq 02/04/23 11:00 02/04/23 12:30 Potassium Chloride Tab 10 Meq Tab PO 02/04/23 11:01 20 meq STAT ONE Administration Simvastatin 10 mg 02/03/23 22:00 Simvastatin 10 Mg Tablet PO 03/05/23 21:59 HS WILLIAN Simvastatin 40 mg 02/03/23 22:00 02/04/23 21:50 Simvastatin 20 Mg Tablet PO 03/05/23 21:59 40 mg HS WILLIAN Administration Tramadol HCl 50 mg 02/04/23 09:06 Tramadol Hcl 50 Mg Tablet PO 03/06/23 09:05 QID PRN PRN MODERATE PAIN Lab/Rad Data: Laboratory Result Diagrams 02/03/23 05:26 02/03/23 05:26 Laboratory Results 02/03/23 02/03/23 02/03/23 Range/Units 09:10 05:26 05:26 WBC (4.0-10.5) x10^3/uL RBC (4.1-5.4) x10^6/uL Hgb (12.0-16.0) g/dL Hct (35-47) % MCV (78-100) fL MCH (26-32) pg MCHC (32-36) g/dL RDW (11.5-14.0) % Plt Count (150-450) x10^3/uL MPV (7.5-11.0) fL Gran % (36.0-66.0) % Immature Gran % (Auto) (0.00-0.4) % Nucleat RBC Rel Count (0.00-0.1) % Eos # (Auto) (0-0.5) x10^3/uL Immature Gran # (Auto) (0.00-0.03) x10^3u/L Absolute Lymphs (auto) (1.0-4.6) x10^3/uL Absolute Monos (auto) (0.0-1.3) x10^3/uL Absolute Nucleated RBC (0.00-0.01) x10^3u/L Lymphocytes % (24.0-44.0) % Monocytes % (0.0-12.0) % Eosinophils % (0.00-5.0) % Basophils % (0.0-0.4) % Absolute Granulocytes (1.4-6.9) x10^3/uL Basophils # (0-0.4) x10^3/uL D-Dimer 0.57 H (0.0-0.50) mg/L Sodium (137-145) mmol/L Potassium (3.5-5.1) mmol/L Chloride (98-107) mmol/L Carbon Dioxide (22-30) mmol/L Anion Gap (5-15) MEQ/L BUN (7-17) mg/dL Creatinine (0.52-1.04) mg/dL Estimated GFR ML/MIN Glucose (74-106) mg/dL Calcium (8.4-10.2) mg/dL Magnesium (1.6-2.3) mg/dL Total Bilirubin (0.2-1.3) mg/dL AST (14-36) U/L ALT (0-35) U/L Alkaline Phosphatase (38-126) U/L Troponin I < 0.012 < 0.012 (0.000-0.034) ng/mL NT-Pro-B Natriuret Pep 23.7 (<300) pg/mL Serum Total Protein (6.3-8.2) g/dL Albumin (3.5-5.0) g/dL 02/03/23 02/03/23 Range/Units 05:26 05:26 WBC 5.6 (4.0-10.5) x10^3/uL RBC 3.86 L (4.1-5.4) x10^6/uL Hgb 12.1 (12.0-16.0) g/dL Hct 38.8 (35-47) % MCV 100.5 H (78-100) fL MCH 31.3 (26-32) pg MCHC 31.2 L (32-36) g/dL RDW 14.2 H (11.5-14.0) % Plt Count 148 L (150-450) x10^3/uL MPV 10.4 (7.5-11.0) fL Gran % 75.1 H (36.0-66.0) % Immature Gran % (Auto) 0.2 (0.00-0.4) % Nucleat RBC Rel Count 0.0 (0.00-0.1) % Eos # (Auto) 0.02 (0-0.5) x10^3/uL Immature Gran # (Auto) 0.01 (0.00-0.03) x10^3u/L Absolute Lymphs (auto) 1.00 (1.0-4.6) x10^3/uL Absolute Monos (auto) 0.34 (0.0-1.3) x10^3/uL Absolute Nucleated RBC 0.00 (0.00-0.01) x10^3u/L Lymphocytes % 18.0 L (24.0-44.0) % Monocytes % 6.1 (0.0-12.0) % Eosinophils % 0.4 (0.00-5.0) % Basophils % 0.2 (0.0-0.4) % Absolute Granulocytes 4.19 (1.4-6.9) x10^3/uL Basophils # 0.01 (0-0.4) x10^3/uL D-Dimer (0.0-0.50) mg/L Sodium 140 (137-145) mmol/L Potassium 3.7 (3.5-5.1) mmol/L Chloride 108 H (98-107) mmol/L Carbon Dioxide 20 L (22-30) mmol/L Anion Gap 15.9 H (5-15) MEQ/L BUN 22 H (7-17) mg/dL Creatinine 1.05 H (0.52-1.04) mg/dL Estimated GFR 55.9 ML/MIN Glucose 124 H (74-106) mg/dL Calcium 10.5 H (8.4-10.2) mg/dL Magnesium 2.0 (1.6-2.3) mg/dL Total Bilirubin 0.40 (0.2-1.3) mg/dL AST 24 (14-36) U/L ALT 15 (0-35) U/L Alkaline Phosphatase 78 (38-126) U/L Troponin I (0.000-0.034) ng/mL NT-Pro-B Natriuret Pep (<300) pg/mL Serum Total Protein 8.9 H (6.3-8.2) g/dL Albumin 4.5 (3.5-5.0) g/dL - Progress Progress: improved Air Movement: good Progress Note: 02/03/23 05:18 67-year-old female with history of ITP, depression, hyperlipidemia, chronic diarrhea presented to the ER via EMS with chief complaint of right-sided chest pain waking her up from sleep. Moderate intensity sharp, hurts to take a deep breath with associated nausea and vomiting without abdominal pain. Patient reports getting short of breath with activity. Denies any history of coronary artery disease/CHF. She is given aspirin in route to the ER with no significant relief. EKG showed sinus rhythm with no acute ischemic changes She is given morphine for symptomatic relief. Chest x-ray reviewed by me did no t reveal any obvious acute intrathoracic findings, official report is pending. 02/03/23 06:58 Work-up is pending, care is transferred to Dr. Snowden at shift change for reevaluation and final disposition. Blood Culture(s) Obtained: No Antibiotics given: No Counseled pt/family regarding: lab results, diagnosis, rad results
[2023-02-03 05:21] LABS: Absolute Neutrophil Ct (ANC) 4.19 x10^3/uL (1.4-6.9); BASOPHIL % 0.2 % (0.0-0.4); Basophil (Absolute #) 0.01 x10^3/uL (0-0.4); Eosinophil % 0.4 % (0.00-5.0); Eosinophil (Absolute #) 0.02 x10^3/uL (0-0.5); Hematocrit 38.8 % (35-47); Hemoglobin 12.1 g/dL (12.0-16.0); IMMATURE GRAN # 0.01 x10^3u/L (0.00-0.03); IMMATURE GRAN % 0.2 % (0.00-0.4); Mean Cell Volume 100.5 fL (78-100); Mean Corpuscular Hemoglobin 31.3 pg (26-32); Mean Corpuscular Hgb Concent. 31.2 g/dL (32-36); Mean Platelet Volume 10.4 fL (7.5-11.0); Monocyte (Absolute #) 0.34 x10^3/uL (0.0-1.3); Monocytes % 6.1 % (0.0-12.0); Neutrophil % 75.1 % (36.0-66.0); Platelet Count 148 x10^3/uL (150-450); Red Blood Count 3.86 x10^6/uL (4.1-5.4); Red Cell Distribution Width 14.2 % (11.5-14.0); White Blood Count 5.6 x10^3/uL (4.0-10.5)
[2023-02-03] MEDS ORDERED: DUONEB 0.5-3 MG/3 ml Neb IH ONE ×2 (05:30→05:37)
[2023-02-03 05:55] LABS: ALBUMIN 4.5 g/dL (3.5-5.0); ANION GAP 15.9 MEQ/L (5-15); BILIRUBIN,TOTAL 0.4 mg/dL (0.2-1.3); Calcium 10.5 mg/dL (8.4-10.2); Creatinine 1 1.05 mg/dL (0.52-1.04); EST GLOMERULAR FILTRATION RATE 55.9 ML/MIN; Potassium 3.7 mmol/L (3.5-5.1); Total Protein 8.9 g/dL (6.3-8.2)
[2023-02-03 05:58] LABS: NT PRO BNPII 23.7 pg/mL (<300); TROPONIN < 0.012 ng/mL (0.000-0.034)
--- NOTE | 2023-02-03 08:22 | XRAY ---
CLINICAL HISTORY:CHEST PAIN, POSSIBLE PULMONARY EMBOLISM, ELEVATED DDIMER. COMPARISON:None. TECHNIQUES:Contiguous 3.[address] angiography images of the chest were acquired with administration of intravenous contrast. Coronal and sagittal reconstructions were obtained including the 3D MIP technique. DLP: 327.5 mGy*cm, CTDI: 31.6 mGy. FINDINGS: Main pulmonary artery and its branches are well opacified with contrast. No evidence of pulmonary embolism. Centrilobular emphysema is seen in both lungs. Mild fibrosis/infiltrates are seen in medial segment of right middle lobe. Minimal basilar infiltrates are seen in both lower lobes. The scanned pulmonary parenchyma shows no definite consolidative lesions. No free or encysted pleural effusion. Heart size is normal, and there is no pericardial effusion. No pathologically enlarged mediastinal, hilar or axillary lymph node identified. There is no definite mass lesion in the chest wall. Scanned upper abdomen shows hiatus hernia. IMPRESSION: 1. No evidence of pulmonary embolism. 2. Centrilobular emphysema. 3. Mild fibrosis/infiltrates are seen in medial segment of right middle lobe. 4. Minimal basilar infiltrates in both lower lobes. Electronically Signed by: Azeem Trinh MD. ( 02/03/2023 07:19:11 [employer])
--- NOTE | 2023-02-03 08:42 | XRAY ---
Indication: Chest pain. Comparison: November 29, 2022 Portable chest remains hyperinflated and clear. Heart not enlarged. Bony thorax intact. No new/acute findings.
[2023-02-03] MEDS ORDERED: MORPHINE SULFATE 4 MG INJ IV PRN ×2 (08:49→11:25)
[2023-02-03] MEDS ORDERED: Zofran 4 MG/2 ML VIAL IV PRN ×2 (08:49→11:26)
[2023-02-03] MEDS ORDERED: Sodium Chloride 0.9% 1000 ML 1,000 ML IV SCH ×2 (09:00→11:30)
[2023-02-03] MEDS ORDERED: Zithromax 500 MG/ 250 ML NaCl Premix 500 MG/250 ML IVPB IV ONE (09:32)
[2023-02-03] MEDS ORDERED: Zithromax 500 MG/ 250 ML NaCl Premix 500 MG/250 ML IVPB IV SCH (10:00)
[2023-02-03] MEDS ORDERED: ROCEPHIN 1 Gm-D5w 50 ml Bag** 1 G/50 ML IVPB IV SCH (10:00)
[2023-02-03] MEDS ORDERED: MEDICATION INTERVENTION MC SCH (15:30)
[2023-02-03] MEDS: Lexapro PO SCH (15:57)
[2023-02-03] MEDS ORDERED: TYLENOL 325 MG PO PRN (17:39)
[2023-02-03] MEDS: Klor Con PO SCH (21:42)
[2023-02-03] MEDS: MELATONIN PO SCH (21:42)
[2023-02-03] MEDS: ZOCOR 20MG PO SCH (21:42)
[2023-02-03] MEDS: xanAX 0.25 MG PO SCH ×2 (21:43)
[2023-02-03] MEDS ORDERED: Zocor 10MG PO SCH (22:00)
[2023-02-03] MEDS ORDERED: NON-FORMULARY ITEM (Rosuvastatin Calcium [Crestor] 20 MG Tablet) PO SCH (22:00)
[2023-02-03] MEDS ORDERED: MELATONIN 3 MG PO SCH (22:00)
--- NOTE | 2023-02-03 23:34 | PCM.HP ---
History of Present Illness - Chief Complaint Chief Complaint: Pneumonia Date: 02/03/23 History of Present Illness: is a 67 year old female with h/o dyslipidemia, frequent loose stools, and depression, who presents with suddent onset of waking up early this morning with nausea and diarrhea, associated with right-sided chest pain, worse with movements and deep breath but not tender to palpation. No associated cough, numbness, diaphoresis, or fever. No personal or family history of cardiac disease, but does smoke 0.5 pack per day of cigarettes. No sick contacts. - Review of Systems Constitutional: Fever, Chills, Malaise Eyes: No Symptoms Ears, Nose, & Throat: No Symptoms Respiratory: No Cough, No Short Of Breath, No Wheezing Cardiac: Chest Pain, Syncope, No No Symptoms, No Palpitations Abdominal/Gastrointestinal: Nausea, Vomiting, Diarrhea, No Abdominal Pain Genitourinary Symptoms: No Symptoms Musculoskeletal: No Symptoms Neurological: No Symptoms All Other Systems: Reviewed and Negative Medications & Allergies Home Medications: Home Medication List Escitalopram Oxalate [Lexapro] 20 mg PO DAILY 07/06/14 [History Confirmed 02/03/23] Rosuvastatin Calcium [Crestor] 20 mg PO HS 03/18/17 [History Confirmed 02/03/23] ALPRAZolam 0.25 MG [xanAX 0.25 MG] 0.5 mg PO TID 09/16/18 [History Confirmed 02/03/23] Biotin 1,000 mcg PO DAILY 09/24/18 [History Confirmed 02/03/23] Potassium Chloride Tab* [Klor Con] 20 meq PO BID 09/24/18 [History Confirmed 02/03/23] Melatonin 3 mg PO HS 11/30/22 [History Confirmed 02/03/23] Allergies/Adverse Reactions: Allergies Allergy/AdvReac Type Severity Reaction Status Date / Time meperidine [From Demerol] Allergy Mild nauseated Verified 09/26/18 14:13 and diarrhea nitrofurantoin AdvReac Severe vomit and Verified 11/29/22 18:26 [From Macrobid] diarrhea sulfamethoxazole AdvReac Severe Nausea and Verified 09/26/18 14:13 [From Bactrim] Vomiting trimethoprim [From Bactrim] AdvReac Severe Nausea and Verified 09/26/18 14:13 Vomiting hydromorphone [From Dilaudid] AdvReac Verified 02/03/23 04:47 - Past Medical History Past Medical History: Yes Neurological History: No Pertinent History ENT History: No Pertinent History Cardiac History: High Cholesterol Respiratory History: No Pertinent History Endocrine Medical History: No Pertinent History Musculoskelatal History: No Pertinent History GI Medical History: No Pertinent History History: Other Pyscho-Social History: Depression, Eating Disorders Reproductive Disorders: No Pertinent History Comment: ANXIETY/DEPRESSION. hypokalemia. c diff. sepsis - Female History Are you now?: No - Past Surgical History Past Surgical History: Yes Neuro Surgical History: No Pertinent History Cardiac History: No Pertinent History Respiratory Surgery: No Pertinent History GI Surgical History: Appendectomy Genitourinary Surgical Hx: No Pertinent History Musculskeletal Surgical Hx: No Pertinent History Female Surgical History: Dilation & Curettage Other Surgical History: right breast biopsy-benign - Social History Smoking Status: Current every day smoker How long have you smoked: 50 yrs Exposure to second hand smoke: Yes Alcohol: None Drug Use: none Family History: no h/o premature CAD - Physical Exam Vital Signs: Vital Signs - 24 hr Temp Pulse Resp BP BP Pulse Ox 02/03/23 20:00 98.6 F 84 18 96/59 95 02/03/23 19:40 94 L 02/03/23 16:00 99.3 F 99 H 19 102/67 95 02/03/23 15:53 97 02/03/23 11:22 98.0 F 93 H 18 107/68 97 02/03/23 10:30 98.5 F 90 106/68 02/03/23 09:00 92 H 18 119/81 100 02/03/23 08:00 102 H 19 114/76 96 02/03/23 07:57 118/67 90 L 02/03/23 07:56 95 H 20 118/67 94 L 02/03/23 07:00 123/80 94 L 02/03/23 06:12 93 H 18 118/75 96 02/03/23 06:00 92 H 16 118/75 97 02/03/23 05:40 85 18 98 02/03/23 05:19 97 02/03/23 05:00 81 16 113/81 02/03/23 04:45 97.4 F 76 19 109/78 97 General Appearance: no apparent distress Neurologic Exam: alert, oriented x 3, normal mood/affect Respiratory Exam: normal breath sounds, lungs clear, other (on 2L oxygen), No respiratory distress Cardiovascular Exam: regular rate/rhythm, normal heart sounds, No murmur Skin Exam: normal color, warm, dry, No rash Results - Labs Lab/Micro Results: Lab Results-Last 24 Hours 02/03/23 02/03/23 02/03/23 Range/Units 05:26 05:26 05:26 WBC 5.6 (4.0-10.5) x10^3/uL RBC 3.86 L (4.1-5.4) x10^6/uL Hgb 12.1 (12.0-16.0) g/dL Hct 38.8 (35-47) % MCV 100.5 H (78-100) fL MCH 31.3 (26-32) pg MCHC 31.2 L (32-36) g/dL RDW 14.2 H (11.5-14.0) % Plt Count 148 L (150-450) x10^3/uL MPV 10.4 (7.5-11.0) fL Gran % 75.1 H (36.0-66.0) % Immature Gran % (Auto) 0.2 (0.00-0.4) % Nucleat RBC Rel Count 0.0 (0.00-0.1) % Eos # (Auto) 0.02 (0-0.5) x10^3/uL Immature Gran # (Auto) 0.01 (0.00-0.03) x10^3u/L Absolute Lymphs (auto) 1.00 (1.0-4.6) x10^3/uL Absolute Monos (auto) 0.34 (0.0-1.3) x10^3/uL Absolute Nucleated RBC 0.00 (0.00-0.01) x10^3u/L Lymphocytes % 18.0 L (24.0-44.0) % Monocytes % 6.1 (0.0-12.0) % Eosinophils % 0.4 (0.00-5.0) % Basophils % 0.2 (0.0-0.4) % Absolute Granulocytes 4.19 (1.4-6.9) x10^3/uL Basophils # 0.01 (0-0.4) x10^3/uL D-Dimer (0.0-0.50) mg/L Sodium 140 (137-145) mmol/L Potassium 3.7 (3.5-5.1) mmol/L Chloride 108 H (98-107) mmol/L Carbon Dioxide 20 L (22-30) mmol/L Anion Gap 15.9 H (5-15) MEQ/L BUN 22 H (7-17) mg/dL Creatinine 1.05 H (0.52-1.04) mg/dL Estimated GFR 55.9 ML/MIN Glucose 124 H (74-106) mg/dL Calcium 10.5 H (8.4-10.2) mg/dL Magnesium 2.0 (1.6-2.3) mg/dL Total Bilirubin 0.40 (0.2-1.3) mg/dL AST 24 (14-36) U/L ALT 15 (0-35) U/L Alkaline Phosphatase 78 (38-126) U/L Troponin I < 0.012 (0.000-0.034) ng/mL NT-Pro-B Natriuret Pep 23.7 (<300) pg/mL Serum Total Protein 8.9 H (6.3-8.2) g/dL Albumin 4.5 (3.5-5.0) g/dL 02/03/23 02/03/23 02/03/23 Range/Units 05:26 09:10 12:57 WBC (4.0-10.5) x10^3/uL RBC (4.1-5.4) x10^6/uL Hgb (12.0-16.0) g/dL Hct (35-47) % MCV (78-100) fL MCH (26-32) pg MCHC (32-36) g/dL RDW (11.5-14.0) % Plt Count (150-450) x10^3/uL MPV (7.5-11.0) fL Gran % (36.0-66.0) % Immature Gran % (Auto) (0.00-0.4) % Nucleat RBC Rel Count (0.00-0.1) % Eos # (Auto) (0-0.5) x10^3/uL Immature Gran # (Auto) (0.00-0.03) x10^3u/L Absolute Lymphs (auto) (1.0-4.6) x10^3/uL Absolute Monos (auto) (0.0-1.3) x10^3/uL Absolute Nucleated RBC (0.00-0.01) x10^3u/L Lymphocytes % (24.0-44.0) % Monocytes % (0.0-12.0) % Eosinophils % (0.00-5.0) % Basophils % (0.0-0.4) % Absolute Granulocytes (1.4-6.9) x10^3/uL Basophils # (0-0.4) x10^3/uL D-Dimer 0.57 H (0.0-0.50) mg/L Sodium (137-145) mmol/L Potassium (3.5-5.1) mmol/L Chloride (98-107) mmol/L Carbon Dioxide (22-30) mmol/L Anion Gap (5-15) MEQ/L BUN (7-17) mg/dL Creatinine (0.52-1.04) mg/dL Estimated GFR ML/MIN Glucose (74-106) mg/dL Calcium (8.4-10.2) mg/dL Magnesium (1.6-2.3) mg/dL Total Bilirubin (0.2-1.3) mg/dL AST (14-36) U/L ALT (0-35) U/L Alkaline Phosphatase (38-126) U/L Troponin I < 0.012 < 0.012 (0.000-0.034) ng/mL NT-Pro-B Natriuret Pep (<300) pg/mL Serum Total Protein (6.3-8.2) g/dL Albumin (3.5-5.0) g/dL - Radiology Impressions Radiology Exams & Impressions: Radiology Procedures Category Date Time Status CHEST 1 VIEW (PORTABLE) Stat Exams 02/03/23 04:45 Completed CHEST WITH CONTRAST [CT] Stat Exams 02/03/23 06:[address] Chest: 1. No evidence of pulmonary embolism. 2. Centrilobular emphysema. 3. Mild fibrosis/infiltrates are seen in medial segment of right middle lobe. 4. Minimal basilar infiltrates in both lower lobes. CXR: Portable chest remains hyperinflated and clear. Heart not enlarged. Bony thorax intact. No new/acute findings. - Other Procedures and Tests Respiratory Therapy 02/03/23 15:53 Oxygen NASAL CANNULA 2 lpm Assessment/Plan (1) Pneumonia Current Visit: Yes Status: Acute Assessment & Plan: Atypical but with RML infiltrate on CXR. Does not appear cultures were drawn in ED. On room air. Feeling better overall. - start Rocephin, Azithromcyin for CAP - may be candidate for outpatient therapy if able to ambulate without dyspnea by tomorrow Code(s): J18.9 - PNEUMONIA, UNSPECIFIED ORGANISM (2) Chest pain Current Visit: Yes Status: Acute Qualifiers: Chest pain type: intercostal pain Qualified Code(s): R07.82 - Intercostal pain Assessment & Plan: Appears to be non-cardiac, with pain with movement and deep inspiration. Troponin negative x3. More likely pleuritic chest pain from pleural irritation from peripheral pneumonia. - PRN Morphine 4 Code(s): R07.9 - CHEST PAIN, UNSPECIFIED (3) Anxiety Current Visit: Yes Status: Acute Assessment & Plan: - continue Lexapro 20 - continue PRN Xanax Code(s): F41.9 - ANXIETY DISORDER, UNSPECIFIED Telemedicine Encounter - Telemedicine Encounter Telemedicine Encounter: The entirety of this encounter was performed via Telemedicine"
[2023-02-04 05:06] LABS: Hematocrit 34.7 % (35-47); Hemoglobin 10.9 g/dL (12.0-16.0); Mean Cell Volume 99.7 fL (78-100); Mean Corpuscular Hemoglobin 31.3 pg (26-32); Mean Corpuscular Hgb Concent. 31.4 g/dL (32-36); Platelet Count 154 x10^3/uL (150-450); Red Blood Count 3.48 x10^6/uL (4.1-5.4); Red Cell Distribution Width 14.5 % (11.5-14.0); White Blood Count 8.5 x10^3/uL (4.0-10.5)
[2023-02-04 05:14] LABS: ANION GAP 12.3 MEQ/L (5-15); BLOOD UREA NITROGEN 15 mg/dL (7-17); CHLORIDE 109 mmol/L (98-107); Calcium 9.6 mg/dL (8.4-10.2); Carbon Dioxide 21 mmol/L (22-30); Creatinine 1 0.96 mg/dL (0.52-1.04); EST GLOMERULAR FILTRATION RATE > 60.0 ML/MIN; Glucose 103 mg/dL (74-106); Potassium 3.3 mmol/L (3.5-5.1); SODIUM 139 mmol/L (137-145)
[2023-02-04] MEDS: Lexapro PO SCH (08:43)
[2023-02-04] MEDS: Klor Con PO SCH ×2 (08:43→21:50)
[2023-02-04] MEDS: ROCEPHIN 1 Gm-D5w 50 ml Bag** 1 G/50 ML IVPB IV SCH (08:47)
[2023-02-04] MEDS ORDERED: ULTRAM 50 MG PO PRN (09:06)
[2023-02-04] MEDS ORDERED: NORCO 5/325 MG PO PRN (09:06)
[2023-02-04] MEDS ORDERED: NON-FORMULARY ITEM (Escitalopram Oxalate [Lexapro] 20 MG Tablet) PO SCH (10:00)
[2023-02-04] MEDS ORDERED: BIOTIN 1000 MCG PO SCH (10:00)
[2023-02-04] MEDS ORDERED: Klor Con PO ONE (11:00)
[2023-02-04] MEDS: solu-MEDROL 60 MG, Sterile H2O 10 ml 2 ML IV SCH ×2 (11:12)
[2023-02-04] MEDS: Zithromax 500 MG/ 250 ML NaCl Premix 500 MG/250 ML IVPB IV SCH (11:12)
--- NOTE | 2023-02-04 13:33 | PCM.NOTE ---
Date and Time: 02/04/23 1326 Subjective Assessment: No acute events overnight. Still having unchanged right-side chest pain, worse with any movement. Now having hard time coughing and breathing deeply, and back on 2L oxygen today. Has not tried sitting up yet. Poor appetite. - Review of Systems Constitutional: Chills, Malaise, Weakness, No Fever Respiratory: Cough, Short Of Breath Cardiac: Chest Pain, No Edema, No Palpitations Abdominal/Gastrointestinal: Appetite Changes, No Abdominal Pain, No Nausea, No Vomiting Skin: No Symptoms Neurological: No Symptoms All Other Systems: Reviewed and Negative Objective Exam General Appearance: mild distress (lying in bed) Neurologic Exam: alert, oriented x 3 Skin Exam: warm, No rash Respiratory Exam: normal breath sounds, chest tenderness, lungs clear, other (on 2L oxygen by [place]) Cardiovascular Exam: regular rate/rhythm, normal heart sounds Gastrointestinal/Abdomen Exam: soft, No tenderness, No distention OBJECTIVE DATA Vital Signs: Vital Signs - 24 hr Temp Pulse Resp BP Pulse Ox 02/04/23 11:44 97.1 F 77 17 101/64 96 02/04/23 10:02 97 02/04/23 07:11 97.1 F 80 18 100/63 97 02/04/23 04:00 97.3 F 81 18 103/70 97 02/04/23 00:00 97.5 F 72 16 100/65 98 02/03/23 20:00 98.6 F 84 18 96/59 95 02/03/23 19:40 94 L 02/03/23 16:00 99.3 F 99 H 19 102/67 95 02/03/23 15:53 97 Pain Assessment - Last Documented Pain Intensity 0 Pain Scale Used [facility] Intake and Output: Intake & Output 02/02/23 02/03/23 02/04/23 02/05/23 11:59 11:59 11:59 11:59 Intake Total 2887 Balance 2887 Weight 56.2 kg Lab Results: Lab Results-Last 24 Hours 02/03/23 02/04/23 02/04/23 Range/Units 12:57 04:10 04:10 WBC 8.5 (4.0-10.5) x10^3/uL RBC 3.48 L (4.1-5.4) x10^6/uL Hgb 10.9 L (12.0-16.0) g/dL Hct 34.7 L (35-47) % MCV 99.7 (78-100) fL MCH 31.3 (26-32) pg MCHC 31.4 L (32-36) g/dL RDW 14.5 H (11.5-14.0) % Plt Count 154 (150-450) x10^3/uL MPV 11.0 (7.5-11.0) fL Sodium 139 (137-145) mmol/L Potassium 3.3 L (3.5-5.1) mmol/L Chloride 109 H (98-107) mmol/L Carbon Dioxide 21 L (22-30) mmol/L Anion Gap 12.3 (5-15) MEQ/L BUN 15 (7-17) mg/dL Creatinine 0.96 (0.52-1.04) mg/dL Estimated GFR > 60.0 ML/MIN Glucose 103 (74-106) mg/dL Calcium 9.6 (8.4-10.2) mg/dL Troponin I < 0.012 (0.000-0.034) ng/mL Radiology Exams: Radiology Procedures Category Date Time Status CHEST 1 VIEW (PORTABLE) Stat Exams 02/03/23 04:45 Completed CHEST WITH CONTRAST [CT] Stat Exams 02/03/23 06:33 Completed Assessment/Plan (1) Pneumonia Current Visit: Yes Status: Acute Assessment & Plan: 67 year old female with h/o dyslipidemia, frequent loose stools, and depression, who presents with pneumonia with pleuritic chest pain ## Pneumonia - in RML. No apparent cultures drawn before antibiotics started. Was on room air yesterday, but back on oxygen today. Suspect has degree of atelectasis from chest pain (see below). No fevers or leukocytosis - continue Rocephin, azithromycin ## Pleuritic chest pain - with pain on movement, cough, or deep inspiration. No infarct on CT, but likely pleural irritation from peripheral pneumonia. Leading to - continue PRN tylenol/tramadol/[place] - add incentive spirometry - add SoluMedrol 60 IV daily to help with pleural irritation ## Hypokalemia - chronic for patient, but worse today, likely due to poor PO intake - continue home KCl 20 mEq BID - give additional KCl 20 mEq this afternoon - repeat BMP, Mg, in AM ## Generalized anxiety disorder - continue Lexapro 20 - continue PRN Xanax Code status: Ful code Prophylaxis: Add lovenox Entirety of encounter took place via telemedicine, to which patient consented. Code(s): J18.9 - PNEUMONIA, UNSPECIFIED ORGANISM (2) Chest pain Current Visit: Yes Status: Acute Qualifiers: Chest pain type: intercostal pain Qualified Code(s): R07.82 - Intercostal pain Code(s): R07.9 - CHEST PAIN, UNSPECIFIED (3) Anxiety Current Visit: Yes Status: Acute Code(s): F41.9 - ANXIETY DISORDER, UNSPECIFIED
[2023-02-04] MEDS: xanAX 0.25 MG PO SCH ×2 (14:39→14:40)
[2023-02-04] MEDS: MELATONIN PO SCH (21:50)
[2023-02-04] MEDS: ZOCOR 20MG PO SCH (21:50)
[2023-02-04] MEDS: xanAX 0.5 MG PO SCH (21:50)
[2023-02-05 05:21] LABS: Hematocrit 30.8 % (35-47); Hemoglobin 9.9 g/dL (12.0-16.0); Mean Cell Volume 98.1 fL (78-100); Mean Corpuscular Hemoglobin 31.5 pg (26-32); Mean Corpuscular Hgb Concent. 32.1 g/dL (32-36); Mean Platelet Volume 10.9 fL (7.5-11.0); Platelet Count 148 x10^3/uL (150-450); Red Blood Count 3.14 x10^6/uL (4.1-5.4); Red Cell Distribution Width 14.3 % (11.5-14.0); White Blood Count 6.7 x10^3/uL (4.0-10.5)
[2023-02-05 05:39] LABS: ANION GAP 12.9 MEQ/L (5-15); BLOOD UREA NITROGEN 18 mg/dL (7-17); CHLORIDE 112 mmol/L (98-107); Calcium 9.5 mg/dL (8.4-10.2); Carbon Dioxide 17 mmol/L (22-30); EST GLOMERULAR FILTRATION RATE > 60.0 ML/MIN; Glucose 120 mg/dL (74-106); Potassium 3.8 mmol/L (3.5-5.1); SODIUM 138 mmol/L (137-145)
[2023-02-05] MEDS: Zithromax 500 MG/ 250 ML NaCl Premix 500 MG/250 ML IVPB IV SCH (10:51)
[2023-02-05] MEDS: solu-MEDROL 60 MG, Sterile H2O 10 ml 2 ML IV SCH ×2 (10:51)
[2023-02-05] MEDS: ROCEPHIN 1 Gm-D5w 50 ml Bag** 1 G/50 ML IVPB IV SCH (10:51)
[2023-02-05] MEDS: xanAX 0.5 MG PO SCH (10:51)
[2023-02-05] MEDS: Klor Con PO SCH (10:52)
[2023-02-05] MEDS: Lexapro PO SCH (10:52)
[2023-02-05] MEDS ORDERED: xanAX 0.5 MG PO PRN (12:00)
--- NOTE | 2023-02-05 15:59 | PCM.DS ---
Discharge Summary Date of Admission: 02/03/23 10:25 Date of Discharge: 02/05/2023 Admitting Physician: SETH HERRING MD Primary Care Provider: ALLISON REEDER UMAIR Allergies Allergies meperidine [From Demerol] Allergy (Mild, Verified 09/26/18 14:13) nauseated and diarrhea nitrofurantoin [From Macrobid] Adverse Reaction (Severe, Verified 11/29/22 18:26) vomit and diarrhea sulfamethoxazole [From Bactrim] Adverse Reaction (Severe, Verified 09/26/18 14:13) Nausea and Vomiting MADE HER VERY SICK trimethoprim [From Bactrim] Adverse Reaction (Severe, Verified 09/26/18 14:13) Nausea and Vomiting MADE HER VERY SICK hydromorphone [From Dilaudid] Adverse Reaction (Verified 02/03/23 04:47) Hospital Summary - Hospital Course Hospital Course: 67-year-old with a history of depression, dyslipidemia, and diarrhea, who presented with sudden onset of nausea, diarrhea, and right-sided chest pain. Noted to be worse with deep breaths and any movements but not tender to palpation. No associated fever, cough, dyspnea, or diaphoresis. On CT chest, she was found to have a right middle lobe pneumonia with no pulmonary embolism or pulmonary infarct. She started on community-acquired pneumonia coverage with Rocephin and azithromycin. Initially had severe pain, eventually improved with addition of steroids. At that point, her pain was improving. She remained on room air. Initially required some oxygen, but after starting on incentive spirometry treatments, she was weaned to room air. She was able to eat better, and ambulate on room air. She will be discharged to complete a course of oral cefdinir and azithromycin for a total of 7 days, to end on 02/09. Entirety of encounter took place via telemedicine. Patient consented to telemedicine. Greater than 30 minutes managing discharge. - Vitals & Intake/Output Vital Signs: Vital Signs Temperature 96.9 F 02/05/23 12:00 Pulse Rate 80 02/05/23 12:00 Respiratory Rate 18 02/05/23 12:00 Blood Pressure 130/82 02/05/23 12:00 O2 Sat by Pulse Oximetry 96 02/05/23 12:00 Intake & Output: Intake & Output 02/03/23 02/04/23 02/05/23 02/06/23 11:59 11:59 11:59 11:59 Intake Total 7617 4303 898 Balance 1401 2758 240 Weight 56.2 kg - Lab Result Diagrams: 02/05/23 04:34 02/05/23 04:34 Lab Results-Last 24 Hrs: Lab Results-Last 24 Hours 02/05/23 02/05/23 Range/Units 04:34 04:34 WBC 6.7 (4.0-10.5) x10^3/uL RBC 3.14 L (4.1-5.4) x10^6/uL Hgb 9.9 L (12.0-16.0) g/dL Hct 30.8 L (35-47) % MCV 98.1 (78-100) fL MCH 31.5 (26-32) pg MCHC 32.1 (32-36) g/dL RDW 14.3 H (11.5-14.0) % Plt Count 148 L (150-450) x10^3/uL MPV 10.9 (7.5-11.0) fL Sodium 138 (137-145) mmol/L Potassium 3.8 (3.5-5.1) mmol/L Chloride 112 H (98-107) mmol/L Carbon Dioxide 17 L (22-30) mmol/L Anion Gap 12.9 (5-15) MEQ/L BUN 18 H (7-17) mg/dL Creatinine 0.80 (0.52-1.04) mg/dL Estimated GFR > 60.0 ML/MIN Glucose 120 H (74-106) mg/dL Calcium 9.5 (8.4-10.2) mg/dL Magnesium 2.0 (1.6-2.3) mg/dL - Radiology Exams Ordered Rad Exams-Entire Visit: Chest CT: Mild fibrosis and infiltrate in the medial segment of the right middle lobe. Minimal basilar infiltrates in both lower lobes. Centrilobular emphysema, but no evidence of pulmonary embolism. - Procedures and Test Procedures and Tests throughout Hospitalization: Therapy Orders & Screens 02/03/23 05:43 Respiratory Therapy Assessment DAILY Comment: 02/03/23 15:53 Oxygen NASAL CANNULA 2 lpm Comment: Diagnosis: Pneumonia 02/04/23 10:02 Incentive Spirometry TID Comment: Diagnosis: Pneumonia Discharge Exam General Appearance: no apparent distress Neurologic Exam: alert, oriented x 3, cooperative, normal mood/affect Eye Exam: eyes nml inspection Neck Exam: normal inspection Respiratory Exam: lungs clear, No chest tenderness, No respiratory distress, No accessory muscle use Cardiovascular Exam: regular rate/rhythm, normal heart sounds, No murmur, No gallop Gastrointestinal/Abdomen Exam: soft, No tenderness, No distention Skin Exam: No rash Final Diagnosis/Problem List - Final Discharge Diagnosis/Problem (1) Pneumonia Current Visit: Yes Status: Acute Code(s): J18.9 - PNEUMONIA, UNSPECIFIED ORGANISM (2) Chest pain Current Visit: Yes Status: Acute Code(s): R07.9 - CHEST PAIN, UNSPECIFIED (3) Anxiety Current Visit: Yes Status: Acute Code(s): F41.9 - ANXIETY DISORDER, UNSPECIFIED - Discharge Disposition: Home, Self-Care Condition: Fair Prescriptions: New Azithromycin [Azithromycin 250 mg Pack] 250 mg PO DAILY #2 tablet Cefdinir 300 mg PO BID #10 cap Prednisone 20 mg [Deltasone 20 mg] 40 mg PO DAILY #6 tablet Continue Escitalopram Oxalate [Lexapro] 20 mg PO DAILY Rosuvastatin Calcium [Crestor] 20 mg PO HS ALPRAZolam 0.25 MG [xanAX 0.25 MG] 0.5 mg PO TIDPRN PRN PRN Reason: Anxiety Potassium Chloride Tab* [Klor Con] 20 meq PO BID Biotin 1,000 mcg PO DAILY Melatonin 3 mg PO HS Instructions: Pneumonia in adults Follow up with: ALLISON REEDER MD [Primary Care Provider] - 02/13/23 10:00 am Forms: Discharge Instructions
[2023-02-05 16:35] VITALS: BP 120/77; PULSE 73
[2023-02-06 14:09] VITALS: O2SAT 97
== END 2023-02-05 16:20 | disposition home or self-care (01) ==
LOC: ED 04:39 → MED SURG 10:25
PROVIDERS: ADMIT Internal Medicine; ATTEND Family Medicine
DX: J18.9 Pneumonia, unspecified organism (principal); R07.9 Chest pain, unspecified; F41.9 Anxiety disorder, unspecified; R19.7 Diarrhea, unspecified; E78.5 Hyperlipidemia, unspecified; E87.6 Hypokalemia; Z72.0 Tobacco use; Z79.899 Other long term (current) drug therapy; Z20.828 Contact with and (suspected) exposure to other viral communicable diseases
CPT/HCPCS: 36000; 36415; 71045; 71260; 80048; 80053; 83735; 83880; 84484; 85025; 85027; 85379; 93005; 93041; 94640; 94760; 96365; 96367; 96374; 99285; Q3014; 96375; G0378; J0456; J0696; J2270; J2930; A9270-GY

== ENCOUNTER 2023-03-14 19:49 | Emergency (ER) | payer BC ==
[2023-03-14 20:37] VITALS: TEMP 97.9
[2023-03-14] MEDS ORDERED: PROTONIX 40 MG IV IV ONE ×2 (20:38→20:53)
[2023-03-14] MEDS ORDERED: Zofran 4 MG/2 ML VIAL IV ONE (20:38)
[2023-03-14] MEDS ORDERED: Sodium Chloride 0.9% 1000 ML 1,000 ML IV STA (20:38)
--- NOTE | 2023-03-14 20:47 | ERPHSYRPT ---
- History of Present Illness Time Seen by Provider: 03/14/23 20:45 Historian: patient, family Exam Limitations: no limitations Patient Subjective Stated Complaint: pt states she has been having diarrhea and vomiting since friday. Triage Nursing Assessment: pt alert and oriented, answers questions approp. pt ambualtes into room with steady gait noted. respirations nonlabored. skin warm and dry. abd soft and nontender to light palpation. bowel sounds hyper. pt reports liquid stools mult times per day. Physician History: pt states she has been having diarrhea and vomiting since friday. pt reports liquid stools mult times per day. Timing/Duration: day(s) (five days) Activities at Onset: none Associated Symptoms: diarrhea, nausea, vomiting, No fever/chills Previous symptoms: no prior history Allergies/Adverse Reactions: meperidine [From Demerol] Allergy (Mild, Verified 03/14/23 20:36) nauseated and diarrhea nitrofurantoin [From Macrobid] Adverse Reaction (Severe, Verified 03/14/23 20:36) vomit and diarrhea sulfamethoxazole [From Bactrim] Adverse Reaction (Severe, Verified 03/14/23 20:36) Nausea and Vomiting MADE HER VERY SICK trimethoprim [From Bactrim] Adverse Reaction (Severe, Verified 03/14/23 20:36) Nausea and Vomiting MADE HER VERY SICK hydromorphone [From Dilaudid] Adverse Reaction (Verified 03/14/23 20:36) Home Medications: Escitalopram Oxalate [Lexapro] 20 mg PO DAILY 07/06/14 [History] Rosuvastatin Calcium [Crestor] 20 mg PO HS 03/18/17 [History] ALPRAZolam 0.25 MG [xanAX 0.25 MG] 0.5 mg PO TIDPRN PRN 09/16/18 [History] Biotin 1,000 mcg PO DAILY 09/24/18 [History] Potassium Chloride Tab* [Klor Con] 20 meq PO BID 09/24/18 [History] Hx Tetanus, Diphtheria Vaccination/Date Given: Yes Hx Influenza Vaccination/Date Given: No Hx Pneumococcal Vaccination/Date Given: No Immunizations Up to Date: Yes Travel Risk - International Travel Have you traveled outside of the country in past 3 weeks: No - Coronavirus Screening Are you exhibiting any of the following symptoms?: No Close contact with a COVID-19 positive Pt in past 14-21 Days: No - Vaccine Status Have you recieved a Covid-19 vaccination: Yes [employer]: [employer] - Vaccination Dates Comment: pt has had covid - Review of Systems Constitutional: No Fever, No Chills Eyes: No Symptoms Ears, Nose, & Throat: No Symptoms Respiratory: No Cough, No Dyspnea Cardiac: No Chest Pain, No Edema, No Syncope Abdominal/Gastrointestinal: Nausea, Vomiting, Diarrhea, No Abdominal Pain Genitourinary Symptoms: No Dysuria Musculoskeletal: No Back Pain, No Neck Pain Skin: No Rash Neurological: No Dizziness, No Focal Weakness, No Sensory Changes Psychological: No Symptoms Endocrine: No Symptoms All Other Systems: Reviewed and Negative - Past Medical History Pertinent Past Medical History: Yes Neurological History: No Pertinent History ENT History: No Pertinent History Cardiac History: High Cholesterol Respiratory History: No Pertinent History Endocrine Medical History: No Pertinent History Musculoskeletal History: No Pertinent History GI Medical History: No Pertinent History History: Other Psycho-Social History: Depression Female Reproductive Disorders: No Pertinent History Other Medical History: ANXIETY/DEPRESSION. hypokalemia. c diff. sepsis - Past Surgical History Past Surgical History: Yes Neuro Surgical History: No Pertinent History Cardiac: No Pertinent History Respiratory: No Pertinent History Gastrointestinal: Appendectomy Genitourinary: No Pertinent History Musculoskeletal: No Pertinent History Female Surgical History: Dilation & Curettage Other Surgical History: right breast biopsy-benign - Social History Smoking Status: Current every day smoker How long have you smoked: 44 yrs Exposure to second hand smoke: Yes Drug Use: none Patient Lives Alone: No - Nursing Vital Signs Nursing Vital Signs: Initial Vital Signs Temperature 97.9 F 03/14/23 20:28 Pulse Rate 109 H 03/14/23 20:28 Respiratory Rate 16 03/14/23 20:28 Blood Pressure 130/93 03/14/23 20:28 O2 Sat by Pulse Oximetry 95 03/14/23 20:28 Pain Scale Pain Intensity 0 - Physical Exam General Appearance: no apparent distress, alert Eye Exam: PERRL/EOMI, eyes nml inspection Ears, Nose, Throat Exam: normal ENT inspection, pharynx normal, moist mucous membranes Neck Exam: normal inspection, non-tender, supple, full range of motion Respiratory Exam: normal breath sounds, lungs clear, No respiratory distress Cardiovascular Exam: regular rate/rhythm, normal heart sounds Gastrointestinal/Abdomen Exam: soft, tenderness (mild epigastric area), No mass Back Exam: normal inspection, normal range of motion, No CVA tenderness, No vertebral tenderness Extremity Exam: normal inspection, normal range of motion, pelvis stable Neurologic Exam: alert, oriented x 3, cooperative, normal mood/affect, nml cerebellar function, sensation nml, No motor deficits Skin Exam: normal color, warm, dry SpO2: 95 - Course Nursing assessment & vital signs reviewed: Yes Ordered Tests: Active Orders 24 hr Category Date Time Status Telemetry q4h Care 03/14/23 21:30 Active AMYLASE Stat Lab 03/14/23 21:04 Completed CBC W DIFF Stat Lab 03/14/23 21:04 Completed CMP Stat Lab 03/14/23 21:04 Completed Lactic Acid Stat Lab 03/14/23 20:46 Completed UA W/RFX UR CULTURE Stat Lab 03/14/23 20:38 Ordered Medication Summary Generic Name Dose Route Start Last Admin Trade Name Freq PRN Reason Stop Dose Admin Potassium Chloride 20 meq in 100 mls @ 50 mls/hr 03/14/23 21:30 03/14/23 21:44 Potassium Chloride 20 Meq In Water 100ml IV 03/15/23 01:29 50 mls/hr Q2H WILLIAN Administration Sodium Chloride 1,000 mls @ 250 mls/hr 03/14/23 21:45 03/14/23 21:45 Sodium Chloride 0.9% 1000 Ml IV 04/13/23 21:44 250 mls/hr .Q4H WILLIAN Administration Magnesium Sulfate/Dextrose 100 mls @ 100 mls/hr 03/14/23 21:45 03/14/23 21:46 Magnesium 1 Gm / 100 Ml D5w IV 03/14/23 23:44 100 mls/hr Q1H WILLIAN Administration Discontinued Medications Generic Name Dose Route Start Last Admin Trade Name Freq PRN Reason Stop Dose Admin Sodium Chloride 1,000 mls @ 999 mls/hr 03/14/23 20:38 03/14/23 20:59 Sodium Chloride 0.9% 1000 Ml IV 03/14/23 21:38 999 mls/hr .Q1H1M STA Administration Sodium Chloride Confirm 03/14/23 20:53 Sodium Chloride 0.9% 1000 Ml Administered 03/14/23 20:54 Dose 1,000 mls @ ud .ROUTE .STK-MED ONE Magnesium Sulfate/Dextrose Confirm 03/14/23 21:35 Magnesium 1 Gm / 100 Ml D5w Administered 03/14/23 21:36 Dose 100 mls @ ud IV .STK-MED ONE Ondansetron HCl 4 mg 03/14/23 20:38 03/14/23 20:59 Ondansetron Hcl 4 Mg/2 Ml Vial IV 03/14/23 20:39 4 mg STAT ONE Administration Ondansetron HCl Confirm 03/14/23 20:53 Ondansetron Hcl 4 Mg/2 Ml Vial Administered 03/14/23 20:54 Dose 4 mg .ROUTE .STK-MED ONE Pantoprazole Sodium 40 mg 03/14/23 20:38 03/14/23 20:59 Pantoprazole 40 Mg Vial IV 03/14/23 20:39 40 mg STAT ONE Administration Pantoprazole Sodium Confirm 03/14/23 20:53 Pantoprazole 40 Mg Vial Administered 03/14/23 20:54 Dose 40 mg IV .STK-MED ONE Potassium Bicarbonate 50 meq 03/14/23 21:29 03/14/23 21:43 Potassium Bicarbonate 25 Meq Tab PO 03/14/23 21:30 50 meq STAT ONE Administration Potassium Bicarbonate Confirm 03/14/23 21:35 Potassium Bicarbonate 25 Meq Tab Administered 03/14/23 21:36 Dose 50 meq .ROUTE .STK-MED ONE Lab/Rad Data: Laboratory Result Diagrams 03/14/23 21:04 03/14/23 21:04 Laboratory Results 03/14/23 03/14/23 03/14/23 Range/Units 21:04 21:04 20:46 WBC 3.9 L (4.0-10.5) x10^3/uL RBC 4.26 (4.1-5.4) x10^6/uL Hgb 13.6 (12.0-16.0) g/dL Hct 41.0 (35-47) % MCV 96.2 (78-100) fL MCH 31.9 (26-32) pg MCHC 33.2 (32-36) g/dL RDW 12.9 (11.5-14.0) % Plt Count 214 (150-450) x10^3/uL MPV 10.5 (7.5-11.0) fL Gran % 49.7 (36.0-66.0) % Immature Gran % (Auto) 0.3 (0.00-0.4) % Nucleat RBC Rel Count 0.0 (0.00-0.1) % Eos # (Auto) 0.01 (0-0.5) x10^3/uL Immature Gran # (Auto) 0.01 (0.00-0.03) x10^3u/L Absolute Lymphs (auto) 1.32 (1.0-4.6) x10^3/uL Absolute Monos (auto) 0.62 (0.0-1.3) x10^3/uL Absolute Nucleated RBC 0.00 (0.00-0.01) x10^3u/L Lymphocytes % 33.6 (24.0-44.0) % Monocytes % 15.8 H (0.0-12.0) % Eosinophils % 0.3 (0.00-5.0) % Basophils % 0.3 (0.0-0.4) % Absolute Granulocytes 1.96 (1.4-6.9) x10^3/uL Basophils # 0.01 (0-0.4) x10^3/uL Sodium 135 L (137-145) mmol/L Potassium 2.5 L* (3.5-5.1) mmol/L Chloride 97 L (98-107) mmol/L Carbon Dioxide 26 (22-30) mmol/L Anion Gap 15.3 H (5-15) MEQ/L BUN 19 H (7-17) mg/dL Creatinine 1.29 H (0.52-1.04) mg/dL Estimated GFR 44.1 ML/MIN Glucose 152 H (74-106) mg/dL Lactic Acid 1.9 (0.4-2.0) Calcium 10.0 (8.4-10.2) mg/dL Total Bilirubin 0.50 (0.2-1.3) mg/dL AST 22 (14-36) U/L ALT 15 (0-35) U/L Alkaline Phosphatase 69 (38-126) U/L Serum Total Protein 8.5 H (6.3-8.2) g/dL Albumin 4.3 (3.5-5.0) g/dL Amylase 76 (30-110) U/L - Progress Progress: improved Counseled pt/family regarding: lab results, diagnosis, need for follow-up Medical Desision Making - Risk of complications The pt has a mod risk of morbidity or mortality based on: Need for prescription drug management The pt has a high risk of morbidity or mortality based on: Drug therapy requiring intensive monitoring for toxicity - Departure Departure Disposition: Home Clinical Impression: Hypokalemia due to excessive gastrointestinal loss of potassium Diarrhea Qualifiers: Diarrhea type: functional diarrhea Qualified Code(s): K59.1 - Functional diarrhea Condition: Stable Critical Care Time: No Referrals: ALLISON REEDER MD [Primary Care Provider] - Follow up/PCP as directed Instructions: Hypokalemia (DC), Hypokalemia, High Potassium Diet Additional Instructions: Discharge/Care Plan NAN ROLAND was seen on 03/14/23 in the Emergency Room. The patient was counseled regarding Diagnosis,Lab results, Imaging studies, need for follow up and when to return to the Emergency Room. Prescriptions given: Discharge Note I have spoken with the patient and/or caregivers. I have explained the patient's condition, diagnosis and treatment plan based on the information available to me at this time. I have answered the patient's and/or caregiver's questions and addressed any concerns. The patient and/or caregivers have as good understanding of the patient's diagnosis, condition and treatment plan as can be expected at this point. The vital signs have been stable. The patient's condition is stable and appropriate for discharge from the emergency department. The patient will pursue further outpatient evaluation with the primary care physician or other designated or consulting physician as outlined in the discharge instructions. The patient and/or caregivers are agreeable to this plan of care and follow-up instructions have been explained in detail. The patient and/or caregivers have received these instruction. The patient/and or caregivers are aware that any significant change in condition or worsening of symptoms s hould prompt an immediate return to this or the closest emergency department or call 911. NAN ROLAND was seen on 03/14/23 n the Emergency Room. At that time you were treated for an emergent condition, during your visit Laboratory, Radiology and/or other procedures may have been ordered. It is very important that you follow-up with your Primary Care Physician ALLISON REEDER within the next 24- 48 hours to review your Emergency Room visit and the final results of testing that was ordered. Some test results such as Urine Cultures, Blood Cultures, and other cultures if ordered will not be finalized for 24-48 hours. If you do not have a Primary Care Provider please call the medical records department at [phone] ext [phone] to obtain a copy of your results or you may sign into our patient portal to obtain these results by visiting us @ [email or web address] and completing the following steps: 1. Click on the Patient Portal link 2. Click the Patient Self Enrollment Link to complete the enrollment form and entering your 3. Once the enrollment form is completed you will receive an email with a temporary ID and password at the email address you provided. 4. Next choose a user name and password. Your user name must be at least 4 characters long and your password must be at least 4 characters long. 5. Choose a security question from the list and provide your answer to the question. If you already have signed into the Health Portal you may access your Health Care Information 10/03 by the following steps: 1. Login to our website @ [email or web address] 2. Enter your original user name and password. FAQS The [facility] Health Portal is an online tool that contains your Lab Results, Radiology Reports, Visit History, Discharge Instructions and Health Summary Lab and Radiology Results will not be available for 72 hours on the portal. The Portal is a secure site, passwords are encryted and URLs are re-written so they cannot be copied and pasted. You and authorized family members are the only ones who can access your Portal. Also there is a timeout feature that protects your information if you leave the Portal page open. If you have technical difficulty please use the Contact Us link on the page this will allow you to submit any questions you have regarding the Portal or you may contact the Medical Record Department at [phone] ext [phone]. Outpatient Orders: CMP Facility: [facility], Location: LABORATORY COMPREHENSIVE/RENAL Facility: [facility], Location: LABORATORY
[2023-03-14] MEDS ORDERED: Zofran 4 MG/2 ML VIAL ONE (20:53)
[2023-03-14] MEDS ORDERED: Sodium Chloride 0.9% 1000 ML 1,000 ML ONE ×2 (20:53→21:37)
[2023-03-14 21:07] LABS: Absolute Neutrophil Ct (ANC) 1.96 x10^3/uL (1.4-6.9); BASOPHIL % 0.3 % (0.0-0.4); Basophil (Absolute #) 0.01 x10^3/uL (0-0.4); Eosinophil % 0.3 % (0.00-5.0); Eosinophil (Absolute #) 0.01 x10^3/uL (0-0.5); Hemoglobin 13.6 g/dL (12.0-16.0); IMMATURE GRAN # 0.01 x10^3u/L (0.00-0.03); IMMATURE GRAN % 0.3 % (0.00-0.4); Lymphocyte (Absolute #) 1.32 x10^3/uL (1.0-4.6); Lymphocytes % 33.6 % (24.0-44.0); Mean Cell Volume 96.2 fL (78-100); Mean Corpuscular Hemoglobin 31.9 pg (26-32); Mean Corpuscular Hgb Concent. 33.2 g/dL (32-36); Mean Platelet Volume 10.5 fL (7.5-11.0); Monocyte (Absolute #) 0.62 x10^3/uL (0.0-1.3); Monocytes % 15.8 % (0.0-12.0); Neutrophil % 49.7 % (36.0-66.0); Platelet Count 214 x10^3/uL (150-450); Red Blood Count 4.26 x10^6/uL (4.1-5.4); Red Cell Distribution Width 12.9 % (11.5-14.0); White Blood Count 3.9 x10^3/uL (4.0-10.5)
[2023-03-14 21:20] LABS: ALBUMIN 4.3 g/dL (3.5-5.0); ANION GAP 15.3 MEQ/L (5-15); BILIRUBIN,TOTAL 0.5 mg/dL (0.2-1.3); Creatinine 1 1.29 mg/dL (0.52-1.04); EST GLOMERULAR FILTRATION RATE 44.1 ML/MIN; Total Protein 8.5 g/dL (6.3-8.2)
[2023-03-14 21:24] LABS: Potassium 2.5 mmol/L (3.5-5.1)
[2023-03-14] MEDS ORDERED: K-LYTE PO ONE (21:29)
[2023-03-14] MEDS ORDERED: MAGNESIUM SULF 2 G/50 ML BAG 2 GM/50 ML PIGGYBACK IV ONE (21:31)
[2023-03-14] MEDS ORDERED: Magnesium 1 Gm / 100 Ml D5W*** 100 ML IV ONE ×2 (21:35→23:01)
[2023-03-14] MEDS ORDERED: K-LYTE ONE (21:35)
[2023-03-14] MEDS ORDERED: POTASSIUM CHLORIDE 20 mEq IN WATER 100ML 200 ML IV ONE (21:35)
[2023-03-14] MEDS: POTASSIUM CHLORIDE 20 mEq IN WATER 100ML 20 MEQ/100 ML BAG IV SCH ×2 (21:44→23:39)
[2023-03-14] MEDS: Sodium Chloride 0.9% 1000 ML 1,000 ML IV SCH ×2 (21:44→21:45)
[2023-03-14] MEDS: Magnesium 1 Gm / 100 Ml D5W*** 100 ML IV SCH ×2 (21:46→23:01)
[2023-03-14 22:45] LABS: Slide Review 1 YES
[2023-03-14] MEDS ORDERED: Compazine 10 MG/2 ML IV ONE (23:45)
[2023-03-14] MEDS ORDERED: Compazine 10 MG/2 ML ONE (23:47)
[2023-03-15 03:08] VITALS: BP 122/79; PULSE 86; RESP 16; O2SAT 96
== END 2023-03-15 02:38 | disposition home or self-care (01) ==
LOC: ED 19:49
DX: E87.6 Hypokalemia (principal); K59.1 Functional diarrhea; R11.10 Vomiting, unspecified; E78.5 Hyperlipidemia, unspecified; Z79.899 Other long term (current) drug therapy; Z72.0 Tobacco use
CPT/HCPCS: 36415; 80053; 82150; 83605; 85025; 96360; 96361; 96365; 96366; 96368; 96374; 96375; 99284; J2405; J3475; J3480; A9270-GY

== ENCOUNTER 2023-03-26 18:40 | Emergency (ER) | payer BC ==
[2023-03-26] MEDS ORDERED: Sodium Chloride 0.9% 1000 ML 1,000 ML IV STA (19:36)
[2023-03-26] MEDS ORDERED: Klor Con PO ONE ×2 (19:37→19:57)
[2023-03-26 19:39] LABS: Absolute Neutrophil Ct (ANC) 1.62 x10^3/uL (1.4-6.9); BASOPHIL % 0.3 % (0.0-0.4); Basophil (Absolute #) 0.01 x10^3/uL (0-0.4); Eosinophil (Absolute #) 0 x10^3/uL (0-0.5); Hematocrit 37.9 % (35-47); Hemoglobin 12.4 g/dL (12.0-16.0); IMMATURE GRAN # 0.01 x10^3u/L (0.00-0.03); IMMATURE GRAN % 0.3 % (0.00-0.4); Lymphocyte (Absolute #) 1.65 x10^3/uL (1.0-4.6); Lymphocytes % 46.9 % (24.0-44.0); Mean Cell Volume 95.5 fL (78-100); Mean Corpuscular Hemoglobin 31.2 pg (26-32); Mean Corpuscular Hgb Concent. 32.7 g/dL (32-36); Mean Platelet Volume 9.3 fL (7.5-11.0); Monocyte (Absolute #) 0.23 x10^3/uL (0.0-1.3); Monocytes % 6.5 % (0.0-12.0); Platelet Count 310 x10^3/uL (150-450); Red Blood Count 3.97 x10^6/uL (4.1-5.4); Red Cell Distribution Width 12.3 % (11.5-14.0); White Blood Count 3.5 x10^3/uL (4.0-10.5)
--- NOTE | 2023-03-26 19:46 | ERPHSYRPT ---
- History of Present Illness Time Seen by Provider: 03/26/23 19:42 Source: patient Exam Limitations: no limitations Physician History: Patient is a 67-year-old female presents to our ED for evaluation and treatment of hypokalemia. Patient states that she has a history of IBS and colitis. Patient has chronic diarrhea. Patient had routine labs performed on an outpatient basis. Patient was notified by her primary care doctor that her potassium was critically low. Patient was instructed to come to our ED for an evaluation. Patient advised that she is currently on potassium supplementation per primary care prescription. Patient has no other complaints. Patient advises that she was in our ED last week for hypokalemia. At that time they replenished her potassium and administered magnesium as well. Patient's at bedside. They voiced no other complaints concerns at this time. Portions of this note were created with voice recognition technology. There may be grammatical, spelling, punctuation or sound alike errors Timing/Duration: today Severity: moderate Modifying Factors: Improves With: nothing Associated Symptoms: denies symptoms Allergies/Adverse Reactions: meperidine [From Demerol] Allergy (Mild, Verified 03/14/23 20:36) nauseated and diarrhea nitrofurantoin [From Macrobid] Adverse Reaction (Severe, Verified 03/14/23 20:36) vomit and diarrhea sulfamethoxazole [From Bactrim] Adverse Reaction (Severe, Verified 03/14/23 20:36) Nausea and Vomiting MADE HER VERY SICK trimethoprim [From Bactrim] Adverse Reaction (Severe, Verified 03/14/23 20:36) Nausea and Vomiting MADE HER VERY SICK hydromorphone [From Dilaudid] Adverse Reaction (Verified 03/14/23 20:36) Home Medications: Escitalopram Oxalate [Lexapro] 20 mg PO DAILY 07/06/14 [History] Rosuvastatin Calcium [Crestor] 20 mg PO HS 03/18/17 [History] ALPRAZolam 0.25 MG [xanAX 0.25 MG] 0.5 mg PO TIDPRN PRN 09/16/18 [History] Biotin 1,000 mcg PO DAILY 09/24/18 [History] Potassium Chloride Tab* [Klor Con] 20 meq PO BID 09/24/18 [History] Dicyclomine HCl 20 mg [Bentyl 20 mg] 20 mg PO TID 03/26/23 [History] Hx Tetanus, Diphtheria Vaccination/Date Given: Yes Hx Influenza Vaccination/Date Given: No Hx Pneumococcal Vaccination/Date Given: No Travel Risk - Vaccine Status Have you recieved a Covid-19 vaccination: Yes [employer]: [employer] - Vaccination Dates Comment: pt has had covid - Review of Systems Constitutional: No Symptoms, No Fever, No Chills Eyes: No Symptoms Ears, Nose, & Throat: No Symptoms Respiratory: No Symptoms, No Cough, No Dyspnea Cardiac: No Symptoms, No Chest Pain, No Edema, No Syncope Abdominal/Gastrointestinal: No Symptoms, No Abdominal Pain, No Nausea, No Vomiting, No Diarrhea Genitourinary Symptoms: No Symptoms, No Dysuria Musculoskeletal: No Symptoms, No Back Pain, No Neck Pain Skin: No Symptoms, No Rash Neurological: No Symptoms, No Dizziness, No Focal Weakness, No Sensory Changes Psychological: No Symptoms Endocrine: No Symptoms Hematologic/Lymphatic: No Symptoms Immunological/Allergic: No Symptoms All Other Systems: Reviewed and Negative - Past Medical History Pertinent Past Medical History: Yes Neurological History: No Pertinent History ENT History: No Pertinent History Cardiac History: High Cholesterol Respiratory History: No Pertinent History Endocrine Medical History: No Pertinent History Musculoskeletal History: No Pertinent History GI Medical History: No Pertinent History History: Other Psycho-Social History: Depression Female Reproductive Disorders: No Pertinent History Other Medical History: ANXIETY/DEPRESSION. hypokalemia. c diff. sepsis - Past Surgical History Past Surgical History: Yes Neuro Surgical History: No Pertinent History Cardiac: No Pertinent History Respiratory: No Pertinent History Gastrointestinal: Appendectomy Genitourinary: No Pertinent History Musculoskeletal: No Pertinent History Female Surgical History: Dilation & Curettage Other Surgical History: right breast biopsy-benign - Social History Smoking Status: Current every day smoker How long have you smoked: 44 yrs Exposure to second hand smoke: Yes Drug Use: none Patient Lives Alone: No - Nursing Vital Signs Nursing Vital Signs: Initial Vital Signs Temperature 97.4 F 03/26/23 19:00 Pulse Rate 78 03/26/23 19:00 Respiratory Rate 17 03/26/23 19:00 Blood Pressure 116/78 03/26/23 19:00 O2 Sat by Pulse Oximetry 94 L 03/26/23 19:00 Pain Scale Pain Intensity 0 - Physical Exam General Appearance: no apparent distress, alert Eye Exam: PERRL/EOMI, eyes nml inspection Ears, Nose, Throat Exam: normal ENT inspection, TMs normal, pharynx normal, moist mucous membranes Neck Exam: normal inspection, non-tender, supple, full range of motion Respiratory Exam: normal breath sounds, lungs clear, airway intact, No respiratory distress Cardiovascular Exam: regular rate/rhythm, normal heart sounds, normal peripheral pulses Gastrointestinal/Abdomen Exam: soft, normal bowel sounds, No tenderness, No mass Back Exam: normal inspection, normal range of motion, No CVA tenderness, No vertebral tenderness Extremity Exam: normal inspection, normal range of motion, pelvis stable Neurologic Exam: alert, oriented x 3, cooperative, normal mood/affect, nml cerebellar function, nml station & gait, sensation nml, No motor deficits Skin Exam: normal color, warm, dry, No rash Lymphatic Exam: No adenopathy SpO2 Interpretation: normal SpO2: 98 O2 Delivery: Room Air - Course Nursing assessment & vital signs reviewed: Yes Ordered Tests: Active Orders 24 hr Category Date Time Status Order K Level 2 hours post-inf 2 HRS POST K-INFUSED Care 03/26/23 19:37 Active Telemetry q4h Care 03/26/23 19:37 Active BMP Stat Lab 03/26/23 00:25 Completed CBC W DIFF Stat Lab 03/26/23 19:15 Completed CMP Stat Lab 03/26/23 19:15 Completed MAG [MAGNESIUM] Stat Lab 03/26/23 19:15 Completed Medication Summary Generic Name Dose Route Start Last Admin Trade Name Freq PRN Reason Stop Dose Admin Magnesium Sulfate/Dextrose 100 mls @ 100 mls/hr 03/26/23 19:45 03/26/23 20:46 Magnesium 1 Gm / 100 Ml D5w IV 03/26/23 21:44 100 mls/hr Q1H WILLIAN Administration Potassium Chloride 20 meq in 100 mls @ 50 mls/hr 03/26/23 19:45 03/26/23 20:51 Potassium Chloride 20 Meq In Water 100ml IV 03/26/23 23:44 50 mls/hr Q2H WILLIAN Administration Discontinued Medications Generic Name Dose Route Start Last Admin Trade Name Freq PRN Reason Stop Dose Admin Sodium Chloride 1,000 mls @ 999 mls/hr 03/26/23 19:36 03/26/23 21:58 Sodium Chloride 0.9% 1000 Ml IV 03/26/23 20:36 Infused .Q1H1M STA Infusion Sodium Chloride Confirm 03/26/23 19:57 Sodium Chloride 0.9% 1000 Ml Administered 03/26/23 19:58 Dose 1,000 mls @ ud .ROUTE .STK-MED ONE Potassium Chloride 40 meq 03/26/23 19:37 03/26/23 19:59 Potassium Chloride Tab 10 Meq Tab PO 03/26/23 19:38 40 meq STAT ONE Administration Potassium Chloride Confirm 03/26/23 19:57 Potassium Chloride Tab 10 Meq Tab Administered 03/26/23 19:58 Dose 40 meq PO .STK-MED ONE Potassium Chloride 40 meq 03/27/23 01:02 03/27/23 01:02 Potassium Chloride Tab 10 Meq Tab PO 03/27/23 01:03 40 meq STAT ONE Administration Potassium Chloride Confirm 03/27/23 01:01 Potassium Chloride Tab 10 Meq Tab Administered 03/27/23 01:02 Dose 40 meq PO .STK-MED ONE Lab/Rad Data: Laboratory Result Diagrams 03/26/23 19:15 03/26/23 19:15 Laboratory Results 03/26/23 03/26/23 03/26/23 Range/Units 19:15 19:15 19:15 WBC 3.5 L (4.0-10.5) x10^3/uL RBC 3.97 L (4.1-5.4) x10^6/uL Hgb 12.4 (12.0-16.0) g/dL Hct 37.9 (35-47) % MCV 95.5 (78-100) fL MCH 31.2 (26-32) pg MCHC 32.7 (32-36) g/dL RDW 12.3 (11.5-14.0) % Plt Count 310 (150-450) x10^3/uL MPV 9.3 (7.5-11.0) fL Gran % 46.0 (36.0-66.0) % Immature Gran % (Auto) 0.3 (0.00-0.4) % Nucleat RBC Rel Count 0.0 (0.00-0.1) % Eos # (Auto) 0 (0-0.5) x10^3/uL Immature Gran # (Auto) 0.01 (0.00-0.03) x10^3u/L Absolute Lymphs (auto) 1.65 (1.0-4.6) x10^3/uL Absolute Monos (auto) 0.23 (0.0-1.3) x10^3/uL Absolute Nucleated RBC 0.00 (0.00-0.01) x10^3u/L Lymphocytes % 46.9 H (24.0-44.0) % Monocytes % 6.5 (0.0-12.0) % Eosinophils % 0.0 (0.00-5.0) % Basophils % 0.3 (0.0-0.4) % Absolute Granulocytes 1.62 (1.4-6.9) x10^3/uL Basophils # 0.01 (0-0.4) x10^3/uL Sodium 137 (137-145) mmol/L Potassium 2.3 L* (3.5-5.1) mmol/L Chloride 98 (98-107) mmol/L Carbon Dioxide 26 (22-30) mmol/L Anion Gap 15.4 H (5-15) MEQ/L BUN 20 H (7-17) mg/dL Creatinine 1.13 H (0.52-1.04) mg/dL Estimated GFR 51.4 ML/MIN Glucose 180 H (74-106) mg/dL Calcium 9.7 (8.4-10.2) mg/dL Magnesium 2.2 (1.6-2.3) mg/dL Total Bilirubin 0.30 (0.2-1.3) mg/dL AST 31 (14-36) U/L ALT 18 (0-35) U/L Alkaline Phosphatase 70 (38-126) U/L Serum Total Protein 7.3 (6.3-8.2) g/dL Albumin 3.7 (3.5-5.0) g/dL 03/26/23 Range/Units 00:25 WBC (4.0-10.5) x10^3/uL RBC (4.1-5.4) x10^6/uL Hgb (12.0-16.0) g/dL Hct (35-47) % MCV (78-100) fL MCH (26-32) pg MCHC (32-36) g/dL RDW (11.5-14.0) % Plt Count (150-450) x10^3/uL MPV (7.5-11.0) fL Gran % (36.0-66.0) % Immature Gran % (Auto) (0.00-0.4) % Nucleat RBC Rel Count (0.00-0.1) % Eos # (Auto) (0-0.5) x10^3/uL Immature Gran # (Auto) (0.00-0.03) x10^3u/L Absolute Lymphs (auto) (1.0-4.6) x10^3/uL Absolute Monos (auto) (0.0-1.3) x10^3/uL Absolute Nucleated RBC (0.00-0.01) x10^3u/L Lymphocytes % (24.0-44.0) % Monocytes % (0.0-12.0) % Eosinophils % (0.00-5.0) % Basophils % (0.0-0.4) % Absolute Granulocytes (1.4-6.9) x10^3/uL Basophils # (0-0.4) x10^3/uL Sodium 137 (137-145) mmol/L Potassium 3.3 L (3.5-5.1) mmol/L Chloride 103 (98-107) mmol/L Carbon Dioxide 25 (22-30) mmol/L Anion Gap 11.9 (5-15) MEQ/L BUN 17 (7-17) mg/dL Creatinine 0.97 (0.52-1.04) mg/dL Estimated GFR > 60.0 ML/MIN Glucose 115 H (74-106) mg/dL Calcium 8.8 (8.4-10.2) mg/dL Magnesium (1.6-2.3) mg/dL Total Bilirubin (0.2-1.3) mg/dL AST (14-36) U/L ALT (0-35) U/L Alkaline Phosphatase (38-126) U/L Serum Total Protein (6.3-8.2) g/dL Albumin (3.5-5.0) g/dL - Progress Progress: improved Progress Note: Patient is a 67-year-old female sent to our ED for hypokalemia. Potassium today was 2.3. Patient received 40 mEq potassium p.o. Additionally patient received 40 mEq potassium K rider. Potassium reassessed. Potassium was 3.3. Patient received a second oral dose of potassium of 40 mEq. This is expected to bring patient's potassium to 3.7. Patient feels well. She is currently asymptomatic. Potassium replacement occurred over a period of 6-1/2 hours. We will discharge patient home. Patient agrees to follow-up with her primary care doctor within 48 hours for reevaluation. Patient voices no other complaints or concerns at this time. Portions of this note were created with voice recognition technology. There may be grammatical, spelling, punctuation or sound alike errors Complexity of problem addressed is moderate acute complicated. The method of addressing patient's hypokalemia and supplementing additional electrolytes, magnesium to maintain potassium at a normal level was considered and managing our patient today. No critical care time Complex of data reviewed and analyzed is moderate. Potassium reviewed. The result was obtained and we calculated the amount of potassium needed to bring patient's potassium up to normal level using the formula of 0.1 mEq potassium s chloe increase for every 10 mEq of oral potassium replacement. Risk complication and or risk of morbidity/mortality of patient management is moderate. Patient received IV and oral potassium replacement which requires cardiac monitoring. Vital stable. Diagnosis is hypokalemia. Time to discharge patient is approximately 10 to 15 minutes. Plan of care established for shared decision making. No social determinants of health present to impede follow-up. Patient and at bedside. They voiced no other complaints or concerns at this time. Portions of this note were created with voice recognition technology. There may be grammatical, spelling, punctuation or sound alike errors 03/27/23 01:09 Counseled pt/family regarding: lab results, diagnosis, need for follow-up - Departure Departure Disposition: Home Clinical Impression: Hypokalemia Condition: Stable Critical Care Time: No Referrals: ALLISON REEDER MD [Primary Care Provider] - Follow up/PCP as directed Instructions: Hypokalemia (DC) Additional Instructions: Discharge/Care Plan NAN ROLAND was seen on 03/27/23 in the Emergency Room. The patient was counseled regarding Diagnosis,Lab results, Imaging studies, need for follow up and when to return to the Emergency Room. Prescriptions given: Discharge Note I have spoken with the patient and/or caregivers. I have explained the patient's condition, diagnosis and treatment plan based on the information available to me at this time. I have answered the patient's and/or caregiver's questions and addressed any concerns. The patient and/or caregivers have as good understanding of the patient's diagnosis, condition and treatment plan as can be expected at this point. The vital signs have been stable. The patient's condition is stable and appropriate for discharge from the emergency department. The patient will pursue further outpatient evaluation with the primary care physician or other designated or consulting physician as outlined in the discharge instructions. The patient and/or caregivers are agreeable to this plan of care and follow-up instructions have been explained in detail. The patient and/or caregivers have received these instruction. The patient/and or caregivers are aware that any significant change in condition or worsening of symptoms should prompt an immediate return to this or the closest emergency department or call 911.
[2023-03-26 19:47] VITALS: TEMP 97.4
[2023-03-26 19:48] LABS: ALBUMIN 3.7 g/dL (3.5-5.0); ANION GAP 15.4 MEQ/L (5-15); BILIRUBIN,TOTAL 0.3 mg/dL (0.2-1.3); Calcium 9.7 mg/dL (8.4-10.2); Creatinine 1 1.13 mg/dL (0.52-1.04); EST GLOMERULAR FILTRATION RATE 51.4 ML/MIN; Total Protein 7.3 g/dL (6.3-8.2)
[2023-03-26 19:51] LABS: Potassium 2.3 mmol/L (3.5-5.1)
[2023-03-26] MEDS ORDERED: POTASSIUM CHLORIDE 20 mEq IN WATER 100ML 200 ML IV ONE (19:57)
[2023-03-26] MEDS ORDERED: Sodium Chloride 0.9% 1000 ML 1,000 ML ONE (19:57)
[2023-03-26] MEDS ORDERED: Magnesium 1 Gm / 100 Ml D5W*** 200 ML IV ONE (19:57)
[2023-03-26] MEDS: POTASSIUM CHLORIDE 20 mEq IN WATER 100ML 20 MEQ/100 ML BAG IV SCH ×2 (19:59→20:51)
[2023-03-26] MEDS: Magnesium 1 Gm / 100 Ml D5W*** 100 ML IV SCH ×2 (19:59→20:46)
[2023-03-27 00:41] LABS: ANION GAP 11.9 MEQ/L (5-15); BLOOD UREA NITROGEN 17 mg/dL (7-17); CHLORIDE 103 mmol/L (98-107); Calcium 8.8 mg/dL (8.4-10.2); Carbon Dioxide 25 mmol/L (22-30); Creatinine 1 0.97 mg/dL (0.52-1.04); EST GLOMERULAR FILTRATION RATE > 60.0 ML/MIN; Glucose 115 mg/dL (74-106); Potassium 3.3 mmol/L (3.5-5.1); SODIUM 137 mmol/L (137-145)
[2023-03-27] MEDS ORDERED: Klor Con PO ONE ×2 (01:01→01:02)
[2023-03-27 01:11] VITALS: BP 100/69; PULSE 87; RESP 16; O2SAT 98
== END 2023-03-27 01:15 | disposition home or self-care (01) ==
LOC: ED 18:40
DX: E87.6 Hypokalemia (principal); E78.5 Hyperlipidemia, unspecified; Z79.899 Other long term (current) drug therapy; Z86.16 Personal history of COVID-19; Z72.0 Tobacco use
CPT/HCPCS: 36000; 36415; 80048; 80053; 83735; 85025; 93005; 96360; 96365; 96366; 99284; J3475; J3480; A9270-GY